=== PATIENT | male | born 1980 | race Caucasian/White ===

== ENCOUNTER 2022-12-18 07:26 | Emergency (ER) | payer OTHER, SELFPAY ==
--- NOTE | 2022-12-18 07:34 | ED_ITS ---
HPI - Back Pain/Injury General Chief Complaint: Back Pain/Injury Stated Complaint: back pain down left leg Time Seen by Provider: 12/18/22 07:34 History of Present Illness HPI Narrative: Presents to emergency department complaining of low back pain. Patient states the pain is in the low back radiates to his left gluteus. Patient denies any paresthesias, or weakness. He denies any trauma. He denies any urinary, bowel incontinence,or retention. He denies any fever, chills, cough, chest, shortness of breath. He denies any flank pain, hematuria, dysuria. Patient states has had back pain intermittently for the last month. He had an appointment with his primary care doctor and he canceled it because at that time his back was no longer hurting him. He has taken Motrin 800 mg yesterday without any relief. He states he takes Ultram intermittently for his psoriasis, and arthritis the last dose was 50 mg 3 days ago and he ran out of them so he has not taking anything today. He states when he went to get up this morning he was not able to get out of bed without any pain. pain is worse with movement. Related Data Home Medications Medication Instructions Recorded Confirmed amlodipine 10 mg tablet 10 mg PO DAILY 12/18/22 12/18/22 atorvastatin 80 mg tablet 80 mg PO QPM 12/18/22 12/18/22 diclofenac sodium 75 mg 75 mg PO BID 12/18/22 12/18/22 tablet,delayed release duloxetine 60 mg capsule,delayed 60 mg PO DAILY 12/18/22 12/18/22 release (Cymbalta) esomeprazole magnesium 20 mg 20 mg PO DAILY 12/18/22 12/18/22 capsule,delayed release (Nexium 24HR) ibuprofen 800 mg tablet 800 mg PO TID 12/18/22 12/18/22 losartan 100 mg tablet (Cozaar) 100 mg PO DAILY 12/18/22 12/18/22 tramadol 50 mg tablet 50 mg PO .every other day 12/18/22 12/18/22 Previous Rx's Medication Instructions Recorded hydrocodone 5 mg-acetaminophen 325 1 tab PO Q6H PRN pain 5 days #14 12/18/22 mg tablet tabs methylprednisolone 4 mg tablets in 4 mg PO DAILY #21 ea 12/18/22 a dose pack (Medrol (Horacio)) Allergies Allergy/AdvReac Type Severity Reaction Status Date / Time No Known Drug Allergies Allergy Verified 12/18/22 07:58 Review of Systems ROS Narrative ROS: Unless otherwise stated in this report the patient's positive and negative responses for review of systems for constitutional, eyes, ENT, cardiovascular, respiratory, gastrointestinal, neurological, , musculoskeletal and integument systems and related systems to the presenting problem are either stated in the history of present illness or were not pertinent or were negative for the symptoms and/or complaints related to the presenting medical problem. [facility] Social History Smoking status: Never smoker Exam Narrative Exam Narrative: Nurses notes and vital signs reviewed and patient is not hypoxic. General: Nontoxic, Well-appearing and in no apparent distress. Skin: Warm, dry, no pallor noted. Multiple psoriatic patches to the arms, legs and back. Neck: Supple, non-tender. Eye: Pupils are equal, round and EOMI. No scleral icterus. Ears, Nose, Mouth, and Throat: TM clear, no posterior oropharynx erythema or nasal mucosal hypertrophy, uvula is mid-line Oral mucosa is moist Cardiovascular: Regular Rate and Rhythm without murmur, gallop or rub. Respiratory: No accessory muscle use or respiratory distress. Lungs are clear to auscultation, no wheezing, rales or rhonchi Chest Wall: no tenderness Back: No midline thoracic or lumbar vertebral tenderness. Rest to palpation to the left lateral L4 L5 S1 and sacroiliac joint. No erythema, step-offs, signs of trauma, or infection.No CVA tenderness Musculoskeletal: normal ROM, no calf or popliteal tenderness, no lower extremity edema/swelling GI: Morbid obesity, Abdomen is soft, non-distended. Normal bowel sounds. No tenderness to palpation. No rebound, guarding, or rigidity noted. Neurological: A&O x4. No cranial nerve dysfunction observed. No truncal ataxia. Moves all extremities. Sensation intact. Psychiatric: Cooperative and interactive. Normal mood and affect. Constitutional Vital Signs - 24 hr 12/18/22 07:49 Temperature 97.8 F Pulse Rate [Monitor] 90 Respiratory Rate 20 Blood Pressure [Right Arm] 152/94 H Pulse Oximetry 96 Oxygen Delivery Method Room Air Course Course Hospital Course: Patient given [address] morphine IM CT scan of the Lumbar spine was ordered. Vital Signs Vital signs: Vital Signs Temperature 97.8 F 12/18/22 07:49 Pulse Rate 90 12/18/22 07:49 Respiratory Rate 20 12/18/22 07:49 Blood Pressure 152/94 H 12/18/22 07:49 Pulse Oximetry 96 12/18/22 07:49 Oxygen Delivery Method Room Air 12/18/22 07:49 Temperature 97.8 F 12/18/22 07:49 Pulse Rate 90 12/18/22 07:49 Respiratory Rate 20 12/18/22 07:49 Blood Pressure 152/94 H 12/18/22 07:49 Pulse Oximetry 96 12/18/22 07:49 Oxygen Delivery Method Room Air 12/18/22 07:49 MDM - Back Pain/Injury Differential Diagnosis Differential diagnosis: Likely lumbar radiculopathy, sciatica, strain of lumbar region, thoracic back pain, AAA and discitis Medical Records Attestation: I reviewed the patient's medical records. Medical records narrative: pt was given morphine 4 mg IM which helped a little bit but he was still in a lot of pain. Patient had 1 mg of Dilaudid given IM. This helped his pain. OARRS was checked. Patient has 15 tablets of Ultram given to him every month prn by his primary care doctor. Patient will be given a prescription for a Medrol Dosepak, and [place]. He is follow-up with his primary care doctor regarding this visit and CT findings. Does not have any signs of cord compression syndrome. At this time the patient is without objective evidence of an acute process requiring hospitalization or inpatient management. The patient has remained hemodynamically stable. No additional indication for emergent studies at this time. I answered all questions. Discussed discharge instructions including standard anticipatory guidance and what should prompt a return to the emergency department, including if they get worse are not getting better or develops any new or concerning symptoms. I've given them specific time frame in which to follow-up, and who to follow-up with. The patient demonstrates understanding. Patient is nontoxic and stable for discharge with outpatient follow-up. This note was created with the assistance of a speech recognition program. Although the intention is to generate documents that actually reflects the content of the visit, no guarantees can be provided that every mistake has been identified and corrected by editing. Imaging Data ct lumbar: Attestation: I have reviewed the pertinent imaging results. Radiologist's impression: Patient Name: FELICIANO BROWNE MRN: [facility]:[id number] date: 1980 Sex: M Assigned Patient Location: ED.MAIN Current Patient Location: ED.MAIN Accession/Order Number: [id number] Exam Date: 12/18/2022 07:45 Report Date: 12/18/2022 08:18 At the request of: REZA COLLADO Procedure: CT lumbar spine wo con EXAM: CT scan of the lumbar spine without contrast. Dose reduction technique used: Automated exposure control and/or adjustment of the mA and/or kV according to patient size and/or use of iterative reconstruction technique. REASON FOR EXAM: Back pain COMPARISON: None FINDINGS: No lumbar spine fractures. Straightening of the normal lumbar lordosis. Otherwise, no lumbar spine malalignment. Multilevel bilateral mild lumbar neural foraminal stenoses. No high-grade neural foraminal stenoses. Multilevel lumbar spinal canal stenoses on a congenital basis. Lumbar epidural lipomatosis. At least moderate effacement of the thecal sac at the L3-L4 level related to epidural lipomatosis and congenital narrowing. No definite severe spinal canal stenoses. Remainder unremarkable. IMPRESSION: 1. No acute lumbar spine abnormalities. 2. Multilevel spinal canal stenoses related to congenital narrowing and epidural lipomatosis, at least moderate thecal sac effacement at the L3-L4 level. Electronically authenticated by: CAROLE WRIGHT Date: 12/18/2022 08:18 Discharge Plan Discharge Chief Complaint: Back Pain/Injury Clinical Impression: Lumbar radiculopathy Patient Disposition: Home, Self-Care Time of Disposition Decision: 09:57 Condition: Good Mode of Transportation: Private Vehicle Prescriptions / Home Meds: New hydrocodone-acetaminophen 5-325 mg tablet 1 tab PO Q6H PRN (Reason: pain) 5 Days Qty: 14 0RF methylprednisolone [Medrol (Horacio)] 4 mg tablets,dose pack 4 mg PO DAILY Qty: 21 0RF No Action esomeprazole magnesium [Nexium 24HR] 20 mg capsule,delayed release(DR/EC) 20 mg PO DAILY atorvastatin 80 mg tablet 80 mg PO QPM amlodipine 10 mg tablet 10 mg PO DAILY duloxetine [Cymbalta] 60 mg capsule,delayed release(DR/EC) 60 mg PO DAILY losartan [Cozaar] 100 mg tablet 100 mg PO DAILY diclofenac sodium 75 mg tablet,delayed release (DR/EC) 75 mg PO BID ibuprofen 800 mg tablet 800 mg PO TID tramadol 50 mg tablet 50 mg PO .every other day Patient Comments: gets 15 pills month Instructions: Acute Low Back Pain (ED), Lumbar Radiculopathy (ED) Stand Alone Forms: Portal Instructions Referrals: VANDANA ANGELES [Primary Care Provider] - 1 week Discharge Date/Time: 12/18/22 10:40
[2022-12-18 07:49] VITALS: BP 152/94; PULSE 90; RESP 20; TEMP 36.6; O2SAT 96; BMI 53.1
[2022-12-18] MEDS: HYDROMORPHONE HCL 1 MG/ML CARTRIDGE IM (09:33)
== END 2022-12-18 10:40 | disposition home or self-care (01) ==
PROVIDERS: Emergency Provider Emergency Medicine; PCP Nurse Practitioner Family
DX: M54.16 Radiculopathy, lumbar region (principal); Z79.899 Other long term (current) drug therapy
CPT/HCPCS: 72131; 96372; 99285; J1170

== ENCOUNTER 2023-01-16 08:32 | Outpatient (OUT) | payer OTHER, SELFPAY ==
--- NOTE | 2023-01-16 09:49 | P.CN_ITS ---
Consult Note: HPI Data of Consult Patient: new to practice Consult date: 01/16/23 Requesting Physician: Lynsey Veras MD Primary Care Provider: VANDANA ANGELES Consult Narrative Reason for consult: low back, left leg pain Narrative: this is a pleasant 42-year-old gentleman who presents for evaluation. He has had several years of low back pain and left leg pain, but in the last two months, this pain has intensified to the point where it is difficult for him to ambulate. He recently underwent a lumbar CT scan, which is significant for moderate stenosis at L3-L4 and L4-L5. There is also facet arthropathy noted. He currently is engaged in providing pertinent home exercises and physical therapyfor over a three-month period, with limited relief. He has taken long- standing tramadol for psoriatic arthritis for greater than three months, and he was given a week's supply of [place] 5 mg, which provided mild relief. He otherwise denies adverse medication side affects or loss of bowel or bladder control. cc:: CC: Lynsey Veras MD Review of Systems ROS Status of ROS 10 or more systems reviewed and unremarkable except as noted in history and below PFSH PFS Social History Smoking status: Never smoker Meds Home Medications and Allergies Home Medications Medication Instructions Recorded Confirmed Type amlodipine 10 mg tablet 10 mg PO DAILY 12/18/22 12/18/22 History atorvastatin 80 mg tablet 80 mg PO QPM 12/18/22 12/18/22 History duloxetine 60 mg capsule,delayed 60 mg PO DAILY 12/18/22 12/18/22 History release (Cymbalta) esomeprazole magnesium 20 mg 20 mg PO DAILY 12/18/22 12/18/22 History capsule,delayed release (Nexium 24HR) ibuprofen 800 mg tablet 800 mg PO TID 12/18/22 12/18/22 History losartan 100 mg tablet (Cozaar) 100 mg PO DAILY 12/18/22 12/18/22 History methylprednisolone 4 mg tablets in 4 mg PO DAILY #21 ea 12/18/22 Rx a dose pack (Medrol (Horacio)) tramadol 50 mg tablet 50 mg PO .every other day 12/18/22 12/18/22 History adalimumab 40 mg/0.4 mL 40 mg subcut .[id number] 01/16/23 01/16/23 History subcutaneous pen kit (Humira(CF) Pen) hydrocodone 5 mg-acetaminophen 325 1 tab PO BID PRN pain 01/16/23 01/16/23 History mg tablet Allergies Allergy/AdvReac Type Severity Reaction Status Date / Time No Known Drug Allergies Allergy Verified 12/18/22 07:58 Exam Constitutional Common normals: no apparent distress, oriented x3 and healthy appearing Respiratory Common normals: normal respiratory effort Effort & inspection: able to speak in complete sentences Back & Pelvis Other: tenderness to palpation throughout the lumbar spine and paraspinal musculature. Pain is elicited with flexion, extension, and lateral rotation of the lumbar spine. Facet loading maneuvers are positive bilaterally. Strength is noted to be unremarkable throughout the bilateral lower extremities except for decreased strength rated at four out of five in the left quadriceps femoris, anterior tibialis. Sensation noted to be unremarkable throughout the bilateral lower extremities except for dysesthesia in the left L3, L4, L5 dermatomal distributions. Tenderness to palpation over the left PSIS. Thigh thrust is positive on the left. Vignesh's maneuver is positive on the left.coordination remains intact. Gait remains mildly antalgic. Extremity Common normals: normal to inspection Neuro Common normals: oriented x3, CN's II-XII intact bilaterally and no focal motor deficits Psych Common normals: mental status grossly normal and cooperative Assessment and Plan Assessment and Plan (1) Lumbar stenosis with neurogenic claudication: (2) Lumbar radiculopathy: (3) Lumbar spondylosis: (4) Sacroiliac joint pain: Plan this is a pleasant 42-year-old gentleman presents for evaluation. He has failed physical and medical modalities, as listed above. His imaging was reviewed, as noted above. Given his failure to respond to conservative measures, it is prudent to attempt a left L3-L4, L4-L5 transforaminal epidural steroid injection to provide analgesia. He may benefit from left sacroiliac joint injection as well. He is in agreement with this plan. Medications were reviewed. I will have him trial [place] 5 mg twice a day when necessary. I will obtain a urine drug screen today. He expressed understanding. He will follow-up after the procedure is complete.
== END 2023-01-16 08:33 | disposition home or self-care (01) ==
LOC: PM 08:33
PROVIDERS: PCP Nurse Practitioner Family; Visit Provider Anesthesiology
DX: M47.26 Other spondylosis with radiculopathy, lumbar region (principal); M48.062 Spinal stenosis, lumbar region with neurogenic claudication; M53.3 Sacrococcygeal disorders, not elsewhere classified
CPT/HCPCS: G0463

== ENCOUNTER 2023-01-23 15:53 | Outpatient (RCR) | payer OTHER, SELFPAY | END 2023-02-23 16:53 | disposition home or self-care (01) | LOC: PT 15:53 | PROVIDERS: PCP Nurse Practitioner Family; Visit Provider Family Medicine | DX: M54.32 Sciatica, left side (principal); M54.9 Dorsalgia, unspecified | CPT/HCPCS: 97010; 97014; 97035; 97110; 97140; 97161 ==

== ENCOUNTER 2023-01-27 07:10 | Outpatient (OUT) | payer OTHER, SELFPAY ==
[2023-01-27 07:57] LABS: Basophils Absolute Auto 0.1 10^3/uL (0.0-0.1); Basophils Percent Auto 0.6 % (0.2-2.0); Eosinophils Absolute Auto 0.2 10^3/uL (0.0-0.7); Eosinophils Percent Auto 1.7 % (0.9-7.0); Hematocrit 41.6 % (42.0-54.0); Hemoglobin 13.6 g/dL (14.0-18.0); Immature Granulocytes Abs Auto 0.07 10^3/uL (0.00-0.03); Immature Granulocytes Pct Auto 0.6 % (0.0-0.5); Lymphocytes Absolute Auto 1.7 10^3/uL (1.2-3.8); Lymphocytes Percent Auto 14.2 % (20.5-60.0); Mean Corpuscular HGB Conc 32.7 g/dL (29.9-35.2); Mean Corpuscular Volume 85.8 fL (80.0-94.0); Mean Platelet Volume 10.1 fL (9.5-13.5); Monocytes Percent Auto 8.3 % (1.7-12.0); Neutrophils Absolute Auto 9.1 10^3/uL (1.4-6.5); Neutrophils Percent Auto 74.6 % (43.0-75.0); Platelet Count 269 10^3/uL (150-450); Red Blood Count 4.85 10^6/uL (4.70-6.10); Red Cell Distribution Width 14.2 % (11.0-15.0); White Blood Count 12.2 10^3/uL (4.0-11.0)
[2023-01-27 08:40] LABS: Erythrocyte Sedimentation Rate 72 mm/hr (<=15)
[2023-01-27 09:06] LABS: Alanine Aminotransferase 34 U/L (16-63); Albumin Globulin Ratio 0.9; Albumin Level 3.7 g/dL (3.4-5.0); Alkaline Phosphatase 122 U/L (46-116); Aspartate Amino Transferase 17 U/L (15-37); Bilirubin Direct 0.1 mg/dL (0.0-0.2); Bilirubin Total 0.6 mg/dL (0.2-1.0); Globulin 4.2 g/dL; Total Protein 7.9 g/dL (6.4-8.2)
[2023-01-27 10:43] LABS: C Reactive Protein 2.8 mg/dL (<=1.0); Estimated GFR (African America >60 (>=60); Estimated GFR (Non-African Ame >60 (>=60)
[2023-10-13 09:02] LABS: QuantiFERON-TB Gold Plus NEGATIVE
== END 2023-01-27 07:11 | disposition home or self-care (01) ==
LOC: LAB 07:12
PROVIDERS: PCP Nurse Practitioner Family; Visit Provider Internal Medicine Rheumatology
DX: L40.50 Arthropathic psoriasis, unspecified (principal); Z11.59 Encounter for screening for other viral diseases
CPT/HCPCS: 36415; 80076; 82565; 85025; 85652; 86140

== ENCOUNTER 2023-01-27 08:18 | Outpatient (OUT) | payer OTHER, SELFPAY ==
[2023-01-27 10:11] LABS: Anion Gap 13.1; Calcium 9.6 mg/dL (8.5-10.1); Carbon Dioxide 26.8 mmol/L (21.0-32.0); Chloride 101 mmol/L (98-107); Glucose 151 mg/dL (74-106); Potassium 3.9 mmol/L (3.5-5.1); Sodium 137 mmol/L (136-145)
[2023-01-27 10:28] LABS: Chol HDL Ratio 5.2; Cholesterol 188 mg/dL (<=200); Free T3 2.77 pg/mL (2.18-3.98); HDL Cholesterol 36 mg/dL (40-60); Thyroid Stimulating Hormone 3.594 uIU/mL (0.358-3.740); Triglycerides 301 mg/dL (<=150); Uric Acid 6.3 mg/dL (3.5-7.2); VLDL CHOLESTEROL 60.2 mg/dL
[2023-01-27 10:57] LABS: Estimated Average Glucose 148 mg/dL; Glycohemoglobin A1C 6.8 % (4.5-6.2)
[2023-01-28 11:13] LABS: Insulin 41.9 uIU/mL (2.6-24.9)
== END 2023-01-27 08:19 | disposition home or self-care (01) ==
LOC: LAB 08:24
PROVIDERS: PCP Nurse Practitioner Family; Visit Provider Nurse Practitioner Family
DX: Z00.00 Encounter for general adult medical examination without abnormal findings (principal)
CPT/HCPCS: 36415; 80051; 80053; 80061; 80076; 82310; 82565; 82947; 83036; 83525; 84436; 84443; 84481; 84520; 84550; 85025; 85652; 86140; 86480

== ENCOUNTER 2023-01-30 07:00 | Day surgery (SDC) | payer OTHER, SELFPAY ==
[2023-01-30 07:21] VITALS: BP 139/82; PULSE 109; RESP 16; TEMP 36.8; O2SAT 95
[2023-01-30 08:28] VITALS: BP 171/98; PULSE 103; RESP 18; O2SAT 96
[2023-01-30] MEDS: BUPIVACAINE HCL 0.25% PF 25 MG/10 ML VIAL INJ (08:29)
[2023-01-30] MEDS: LIDOCAINE HCL 2% PF 100 MG/5 ML VIAL INJ (08:30)
[2023-01-30] MEDS: IOHEXOL 240 MG/ML - 10 ML VIAL INJ (08:30)
[2023-01-30] MEDS: TRIAMCINOLONE ACETONIDE 40 MG/ML VIAL INJ (08:31)
[2023-01-30 08:32] VITALS: BP 173/93; PULSE 99; RESP 18; O2SAT 97
--- NOTE | 2023-01-30 08:32 | W.PM.PROCNOT ---
Date of procedure: 01/30/23 Pre-op diagnosis: Lumbar stenosis with neurogenic claudication Post-op diagnosis: same Procedure: Procedure: Left L3-4, L4-5 transforaminal epidural steroid injection Medications: Bupivacaine 0.25% 2cc, normal saline 0.9% 1cc, kenalog 40mg The patient was seen and examined in the preoperative holding area.? Informed consent was obtained and placed on the chart.? Patient was brought to the medical procedure unit and placed in the prone position where a timeout was completed verifying the correct patient, procedure site, position, and planned special equipment using sterile aseptic technique.? Under direct fluoroscopic visualization a 25-gauge Quincke tipped spinal needle was advanced at level left L3-4 to the designated neural foramen where contrast dye was injected to show adequate spread.? There was no evidence of vascular or adverse uptake.? Epidural spread was appreciated.? The above-mentioned injectate was then placed in a 1.5 mL aliquot preceded by negative aspiration.? The needle was removed. The same procedure was then completed at left L4-5. ? Patient was taken to the postprocedural recovery area and monitored for an appropriate length of time before found suitable for discharge in the accompaniment of a responsible adult. Anesthesia: None Surgeon: Lynsey Veras Pathology: none sent Condition: stable
== END 2023-01-30 08:36 | disposition home or self-care (01) ==
PROVIDERS: PCP Nurse Practitioner Family; Visit Provider Anesthesiology
DX: M48.062 Spinal stenosis, lumbar region with neurogenic claudication (principal)
CPT/HCPCS: 64483; 64484; Q9966

== ENCOUNTER 2023-02-13 06:42 | Day surgery (SDC) | payer OTHER, SELFPAY ==
[2023-02-13 07:03] VITALS: BP 152/96; PULSE 106; RESP 14; TEMP 36.4; O2SAT 95
[2023-02-13 07:16] LABS: Glucometer 146 mg/dL (74-106)
[2023-02-13] MEDS: BUPIVACAINE HCL 0.25% PF 25 MG/10 ML VIAL INJ (07:33)
[2023-02-13] MEDS: IOHEXOL 240 MG/ML - 10 ML VIAL INJ (07:34)
[2023-02-13] MEDS: LIDOCAINE HCL 2% PF 100 MG/5 ML VIAL INJ (07:34)
[2023-02-13] MEDS: TRIAMCINOLONE ACETONIDE 40 MG/ML VIAL INJ (07:34)
--- NOTE | 2023-02-13 07:34 | W.PM.PROCNOT ---
Date of procedure: 02/13/23 Pre-op diagnosis: left sacroiliac joint pain Procedure: Procedure: Left sacroiliac joint pain Medications: Kenalog 40mg, bupivacaine 0.25% 3cc After informed consent was obtained, the patient was brought to the medical procedure unit and placed in the prone position, when a timeout was completed verifying correct patient, procedure, site, positioning, implant, and/or special equipment.? The skin overlying the area was prepped and draped in standard sterile fashion using alcohol.? A 25-gauge needle was inserted into the left sacroiliac joint under direct fluoroscopic imaging.? Needle tip was advanced until the joint surface was encountered.? Along the joint surface we instilled a total of 3 mL of solution.? Postoperatively needles were removed.? The patient tolerated the procedure well without complication.? The patient reported reduction in pain symptoms postoperatively. Anesthesia: None Surgeon: Lynsey Veras Pathology: none sent Condition: stable Disposition: no change
[2023-02-13 13:22] VITALS: BP 162/92; PULSE 106; RESP 20; O2SAT 95
== END 2023-02-13 07:38 | disposition home or self-care (01) ==
PROVIDERS: PCP Family Medicine; Visit Provider Anesthesiology
DX: M53.3 Sacrococcygeal disorders, not elsewhere classified (principal)
CPT/HCPCS: 27096; 36415; 82948; Q9966

== ENCOUNTER 2023-02-22 19:54 | Outpatient (OUT) | payer OTHER, SELFPAY | END 2023-02-22 19:55 | disposition home or self-care (01) | LOC: SLEEP 19:55 | PROVIDERS: PCP Family Medicine; Visit Provider Family Medicine | DX: G47.33 Obstructive sleep apnea (adult) (pediatric) (principal) | CPT/HCPCS: 95810 ==

== ENCOUNTER 2023-02-24 11:18 | Outpatient (OUT) | payer OTHER, SELFPAY ==
--- NOTE | 2023-02-24 11:45 | PM.CN ---
Consult Note: HPI Data of Consult Patient: known to practice within the last 3 years Consult date: 02/24/23 Requesting Physician: HALINA MOONEY NP Primary Care Provider: VANDANA ANGELES Consult Narrative Narrative: Patient is here for f/u of chronic low back pain. He had left SI injection 02/13/23 with 20% relief after procedure. Left TFESI done 01/30/23 with 50% relief of pain. . Pain today is left low back radiating to left leg to just above left knee. Worse with position changes, walking, standing. He completed PT this month without benefit. Discussed ordering MRI and he would like to go ahead with MRI. FRANCISCO-60 . No new sensorimotor sx or bowel or bladder issues. Medication regimen assists patient to better complete ADLs. Denies adverse medication SE. OARRS reviewed. FRANCISCO- 60. He states the norco wears off before next dose is due. We can increase dose to TID. cc:: CC: HALINA MOONEY NP Review of Systems ROS Status of ROS 10 or more systems reviewed and unremarkable except as noted in history and below Musculoskeletal Reports: back pain PFSH PFSH Medical History Surgical History Social History Smoking status: Never smoker Meds Home Medications and Allergies Home Medications Medication Instructions Recorded Confirmed Type amlodipine 10 mg tablet 10 mg PO DAILY 12/18/22 02/13/23 History atorvastatin 80 mg tablet 80 mg PO QPM 12/18/22 02/13/23 History duloxetine 60 mg capsule,delayed 60 mg PO DAILY 12/18/22 02/13/23 History release (Cymbalta) esomeprazole magnesium 20 mg 20 mg PO DAILY 12/18/22 02/13/23 History capsule,delayed release (Nexium 24HR) ibuprofen 800 mg tablet 800 mg PO TID PRN pain 12/18/22 02/13/23 History losartan 100 mg tablet (Cozaar) 100 mg PO DAILY 12/18/22 02/13/23 History hydrocodone 5 mg-acetaminophen 325 1 tab PO BID PRN pain 01/16/23 02/13/23 History mg tablet Allergies Allergy/AdvReac Type Severity Reaction Status Date / Time No Known Drug Allergies Allergy Verified 01/30/23 07:15 Exam Constitutional Documenting provider has reviewed patient's vital signs: yes Common normals: no apparent distress, oriented x3, healthy appearing, alert and well nourished General appearance: cooperative, comfortable and well developed Nutritional appearance: obese Orientation/consciousness: Yes awake, Yes oriented to person and Yes oriented to place HENMT Common normals: normocephalic and moist oral mucous membranes Respiratory Common normals: normal respiratory effort, no retractions and no use of accessory muscles Effort & inspection: able to speak in complete sentences and symmetric chest movement Back & Pelvis Lumbar spine/lower back: normal to inspection, ROM limited, pain with ROM and paraspinal muscle tenderness Other: facet loading pain left lumbar muscle strength 5/5 bilat LE with intact sensation Assessment and Plan Assessment and Plan (1) Lumbar spondylosis: (2) Lumbar stenosis with neurogenic claudication: (3) Lumbar radiculopathy: Plan LS MRI without contrast increase norco to TID f/u 3 months
== END 2023-02-24 11:19 | disposition home or self-care (01) ==
PROVIDERS: PCP Nurse Practitioner Family; Visit Provider Nurse Practitioner
DX: M47.26 Other spondylosis with radiculopathy, lumbar region (principal); M48.062 Spinal stenosis, lumbar region with neurogenic claudication
CPT/HCPCS: G0463

== ENCOUNTER 2023-03-01 19:04 | Observation (INO) | payer OTHER, SELFPAY ==
[2023-03-01 19:07] VITALS: BP 141/96; PULSE 106; RESP 18; TEMP 36.7; O2SAT 97
--- NOTE | 2023-03-01 19:16 | ED_ITS ---
HPI - Back Pain/Injury General Chief Complaint: Back Pain/Injury Stated Complaint: LOWER BACK PAIN Time Seen by Provider: 03/01/23 19:08 Source: patient Mode of arrival: ambulance History of Present Illness HPI Narrative: Patient is a 42-year-old male with ongoing issues in his low back presents to the emergency department by ambulance for the evaluation of increasing low back pain with pain radiation to the left lower extremity. 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 He has received injections to his low back. He states his most recent injection was one week ago. He is currently on [place], muscle relaxants and ibuprofen for pain. He reports an increase in pain today, no new falls or injuries. He denies any ur inary symptoms. He reports occasional tingling of the left leg. Related Data Home Medications Medication Instructions Recorded Confirmed amlodipine 10 mg tablet 10 mg PO DAILY 12/18/22 02/13/23 atorvastatin 80 mg tablet 80 mg PO QPM 12/18/22 02/13/23 duloxetine 60 mg capsule,delayed 60 mg PO DAILY 12/18/22 02/13/23 release (Cymbalta) esomeprazole magnesium 20 mg 20 mg PO DAILY 12/18/22 02/13/23 capsule,delayed release (Nexium 24HR) ibuprofen 800 mg tablet 800 mg PO TID PRN pain 12/18/22 02/13/23 losartan 100 mg tablet (Cozaar) 100 mg PO DAILY 12/18/22 02/13/23 hydrocodone 5 mg-acetaminophen 325 1 tab PO BID PRN pain 01/16/23 02/13/23 mg tablet Previous Rx's Medication Instructions Recorded hydrocodone 5 mg-acetaminophen 325 1 tab PO TID PRN pain #90 tabs 02/24/23 mg tablet naloxone 4 mg/actuation nasal 1 spray intranasal Q2M PRN opioid 02/24/23 spray (Narcan) overdose #2 ea Allergies Allergy/AdvReac Type Severity Reaction Status Date / Time No Known Drug Allergies Allergy Verified 03/01/23 19:12 Review of Systems ROS Constitutional Denies: fever or chills Ears, nose, mouth, and throat Denies: throat pain or neck pain Cardiovascular Denies: chest pain Respiratory Denies: shortness of breath Gastrointestinal Denies: nausea or vomiting Musculoskeletal Reports: back pain and extremity pain; Denies: neck pain Integumentary/Breast Denies: rash Neurological Denies: headache Hematologic/Lymphatic Denies: easy bruising PFSH PFS Medical History Surgical History Social History Smoking status: Never smoker Exam Narrative Exam Narrative: Gen.: Awake, alert, in no distress Head: Normocephalic, atraumatic ENT: Moist mucous membranes Respiratory: No respiratory distress Back:Diffuse tenderness of the lumbar spine, no bony point tenderness or obvious deformity, no step off. Extremities: Moves extremities equally, no injuries noted Psych: Normal mood and affect Neuro: No focal neuro deficit Skin: Warm, dry, intact Constitutional Vital Signs, click to edit/add: Last Vital Signs Temp 98.1 F 03/01/23 19:07 Pulse 106 H 03/01/23 19:07 Resp 18 03/01/23 19:07 BP 141/96 H 03/01/23 19:07 Pulse Ox 97 03/01/23 19:07 O2 Del Method Room Air 03/01/23 19:07 Course Vital Signs Vital signs: Vital Signs Temperature 98.1 F 03/01/23 19:07 Pulse Rate 106 H 03/01/23 19:07 Respiratory Rate 18 03/01/23 19:07 Blood Pressure 141/96 H 03/01/23 19:07 Pulse Oximetry 97 03/01/23 19:07 Oxygen Delivery Method Room Air 03/01/23 19:07 Temperature 98.1 F 03/01/23 19:07 Pulse Rate 106 H 03/01/23 19:07 Respiratory Rate 18 03/01/23 19:07 Blood Pressure 141/96 H 03/01/23 19:07 Pulse Oximetry 97 03/01/23 19:07 Oxygen Delivery Method Room Air 03/01/23 19:07 MDM - Back Pain/Injury MDM Narrative Medical decision making narrative: IV was established. Patient has no focal neuro deficits in the Emergency Room. Exam and history are consistent with left-sided sciatica and acute chronic low back pain. As the patient has had an increase in pain in the lumbar spine and difficulty ambulating, repeat CT of the lumbar spine was performed showing no evidence of acute change. Patient was medicated with IV morphine, Zofran, Toradol, Norflex. He reported no improvement of his pain was given additional IV Dilaudid and Solu-Medrol with no significant change in pain. After his CT resulted, patient states he is not even able to sit up due to intractable pain. Patient has received the limit of medications that we can offer from the Emergency Room and he is unable to ambulate or function so he will be admitted for intractable pain to his primary care provider Dr. Cool. Discussed with Dr. Chen for admission (2119). Medical Records Attestation: I reviewed the patient's medical records. Imaging Data CT lumbar spine: Attestation: I have reviewed the pertinent imaging results. Radiologist's impression: Procedure: CT lumbar spine wo con EXAM: CT lumbar spine wo con COMPARISON: None available. CLINICAL INDICATION: Paresthesia TECHNIQUE: Multiplanar CT images of the lumbar spine without contrast. Dose reduction techniques were achieved by using automated exposure control and/or adjustment of mA and/or kV according to patient size and/or use of iterative reconstruction technique. FINDINGS: No significant interval change compared to recent prior CT L-spine from 12/18/2022. 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 This results in unchanged mild spinal canal narrowing at L2-L3 and moderate spinal canal narrowing from L3 through L5. Right foraminal disc protrusion-osteophyte complex at L3-L4 resulting in unchanged right foraminal narrowing. No evidence of acute osseous abnormality. Nonobstructing 5 mm left kidney stone. IMPRESSION: As above. Electronically authenticated by: JANETTE OLIVAS Date: 03/01/2023 21:07 Discharge Plan Discharge Chief Complaint: Back Pain/Injury Patient Disposition: Admitted as Observation Time of Disposition Decision: 21:22 Prescriptions / Home Meds: No Action hydrocodone-acetaminophen 5-325 mg tablet 1 tab PO TID PRN (Reason: pain) Qty: 90 0RF naloxone [Narcan] 4 mg/actuation spray,non-aerosol 1 spray intranasal Q2M PRN (Reason: opioid overdose) Qty: 2 0RF Rx Instructions: spray 1 dose into ONE nostril; alternate nostrils w each dose until help arrives esomeprazole magnesium [Nexium 24HR] 20 mg capsule,delayed release(DR/EC) 20 mg PO DAILY atorvastatin 80 mg tablet 80 mg PO QPM amlodipine 10 mg tablet 10 mg PO DAILY duloxetine [Cymbalta] 60 mg capsule,delayed release(DR/EC) 60 mg PO DAILY losartan [Cozaar] 100 mg tablet 100 mg PO DAILY ibuprofen 800 mg tablet 800 mg PO TID PRN (Reason: pain) hydrocodone-acetaminophen 5-325 mg tablet 1 tab PO BID PRN (Reason: pain) Referrals: Rizwan Cool MD [Primary Care Provider] - 1 week
[2023-03-01] MEDS: ORPHENADRINE 60 MG/ 2 ML VIAL IV (19:23)
[2023-03-01] MEDS: KETOROLAC TROMETHAMINE 30 MG/ML VIAL IVP (19:23)
[2023-03-01] MEDS: MORPHINE SULFATE 4 MG/ML VIAL IV (19:23)
[2023-03-01] MEDS: ONDANSETRON PF 4 MG/2 ML VIAL IV (19:24)
--- NOTE | 2023-03-01 19:26 | CT_ITS ---
The [address] [address] Patient Name: FELICIANO BROWNE MRN: [id number] date: 1980 Sex: M Assigned Patient Location: ER Current Patient Location: ER Accession/Order Number: [id number] Exam Date: 03/01/2023 19:35 Report Date: 03/01/2023 21:07 At the request of: KARINA WALKER Procedure: CT lumbar spine wo con EXAM: CT lumbar spine wo con COMPARISON: None available. CLINICAL INDICATION: Paresthesia TECHNIQUE: Multiplanar CT images of the lumbar spine without contrast. Dose reduction techniques were achieved by using automated exposure control and/or adjustment of mA and/or kV according to patient size and/or use of iterative reconstruction technique. FINDINGS: No significant interval change compared to recent prior CT L-spine from 12/18/2022. 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 This results in unchanged mild spinal canal narrowing at L2-L3 and moderate spinal canal narrowing from L3 through L5. Right foraminal disc protrusion-osteophyte complex at L3-L4 resulting in unchanged right foraminal narrowing. No evidence of acute osseous abnormality. Nonobstructing 5 mm left kidney stone. CT/CT lumbar spine wo con IMPRESSION: As above. Electronically authenticated by: JANETTE OLIVAS Date: 03/01/2023 21:07
[2023-03-01] MEDS: HYDROMORPHONE HCL 0.5 MG/0.5 ML SYRINGE 1 MG IV (20:11)
[2023-03-01] MEDS: METHYLPREDNISOLONE SOD SUCC PF 125 MG/2 ML VIAL IVP (20:11)
[2023-03-01 22:11] VITALS: PULSE 96; RESP 18; O2SAT 92
[2023-03-01 22:13] VITALS: BP 137/91; PULSE 96; RESP 18; TEMP 36.7; O2SAT 92; BMI 59.9
--- NOTE | 2023-03-01 22:44 | P.PN_ITS ---
Progress Note: Subjective Subjective Interval history: PT is a 42M with PMH of sciatica who presented to the ED with chief complaint of low back pain. He was given morphine, dilaudid, steroids and still has been unable to walk. At the time of my evaluation, he reports persistent 9/10 back pain which is constant, and radiates from the L gluteal area to the L knee. He reports no weakness, no loss of sensation, no saddle anesthesia, no incontinence of urine or stool. His pain has no relieving factors and is worse with movement. Nonsmoker, No drug use. Occasional beer drinking (12 per week). No pertinent family history Takes [place] and muscle relaxer at home. Exam Narrative Exam Narrative: Gen: Mod-severe painful distress. Lying flat in bed HEENT: No nasal discharge. NC/AT. PEERL Neck: FROM Cards: RRR. No murmur Pulm: CTA B/L GI: Nondistented. Nontender Musculsk: +SLR LLE. 5/5 Strength. No sensation loss. Neuro: as above. AAOx4 PSych: cooperative Constitutional Vital Signs, click to edit/add: Last Vital Signs Temp 98.1 F 03/01/23 19:07 Pulse 106 H 03/01/23 19:07 Resp 18 03/01/23 19:07 BP 141/96 H 03/01/23 19:07 Pulse Ox 97 03/01/23 19:07 O2 Del Method Room Air 03/01/23 19:07 Progress Note: A&P Assessment and Plan (1) Left sided sciatica: Assessment and Plan: Positive LLE SLR CT L spine shows stenosis Intractable pain Inability to ambulate Pain management with Dilaudid Add bowel regimen AMbulate as tolerated MRI L Spine SCDs, Lovenox for DVt PPX regular diet Consider Neurosurgery referral (2) Intractable low back pain: (3) Ambulatory dysfunction: Telemedicine Attestation Telemedicine Attestation I conducted this encounter from [[place]] via secure live, [id number] video rachel wray with the patient, located at [facility] with [nurse]. Prior to the interview, the risks and benefits of telemedicine were discussed with the patient and verbal consent was obtained.
[2023-03-01 23:00] VITALS: O2SAT 91
--- NOTE | 2023-03-01 23:08 | RESP.RT ---
02 applied at 1L nasal cannula. Pt shallowing breathing and when moving around Sp02 dropped to 88%.
[2023-03-02] VITALS (8 sets, daily range): BP systolic 144–153; BP diastolic 89–101; PULSE 95–110; RESP 18–22; TEMP 36.4–36.7; O2SAT 91–94
[2023-03-02] MEDS: HYDROMORPHONE HCL 1 MG/ML CARTRIDGE IVP ×2 (00:50→05:06)
[2023-03-02 09:00] LABS: Hemoglobin 14.4 g/dL (14.0-18.0); Mean Corpuscular Hemoglobin 27.9 pg (25.9-34.0); Platelet Count 273 10^3/uL (150-450); Red Blood Count 5.17 10^6/uL (4.70-6.10); Red Cell Distribution Width 14.3 % (11.0-15.0); White Blood Count 17.3 10^3/uL (4.0-11.0)
[2023-03-02 09:14] LABS: Lymphocytes Absolute Manual 0.51 10^3/uL (1.20-3.80); Monocytes Absolute Manual 0.17 10^3/uL (0.30-0.80)
--- NOTE | 2023-03-02 09:22 | XR_ITS ---
[address] [address] Patient Name: FELICIANO BROWNE MRN: [id number] date: 1980 Sex: M Assigned Patient Location: [place] Current Patient Location: [place] Accession/Order Number: [id number] Exam Date: 03/02/2023 11:20 Report Date: 03/02/2023 11:55 At the request of: SHAIKH JM Procedure: XR chest 1V EXAM: XR chest 1V HISTORY: elevated white blood count COMPARISON: None. TECHNIQUE: Chest X-ray AP, 1 view FINDINGS: Support devices: None. Lungs/pleura: No consolidation, effusion, or pneumothorax. Heart and mediastinum: Normal contours. Bones: No acute abnormality identified. XR/XR chest 1V Impression: No radiographic evidence of acute cardiopulmonary process. Electronically authenticated by: CHERYL ZAYAS Date: 03/02/2023 11:55
[2023-03-02] MEDS: OMEPRAZOLE 20 MG CAPSULE.DR PO (09:57)
[2023-03-02] MEDS: AMLODIPINE BESYLATE 5 MG TABLET 10 MG PO (09:57)
[2023-03-02] MEDS: ENOXAPARIN SODIUM 40 MG/0.4 ML SYRINGE SUBQ (09:57)
[2023-03-02] MEDS: DULOXETINE HCL 60 MG CAPSULE.DR PO (09:57)
[2023-03-02] MEDS: METOPROLOL TARTRATE 25 MG TABLET PO ×2 (09:58→21:45)
[2023-03-02] MEDS: LOSARTAN POTASSIUM 50 MG TABLET 100 MG PO (09:58)
[2023-03-02] MEDS: METHYLPREDNISOLONE SOD SUCC PF 125 MG/2 ML VIAL IVP (10:01)
[2023-03-02 10:04] LABS: Alanine Aminotransferase 41 U/L (16-63); Albumin Globulin Ratio 0.8; Albumin Level 3.6 g/dL (3.4-5.0); Alkaline Phosphatase 114 U/L (46-116); Anion Gap 10.6; Aspartate Amino Transferase 14 U/L (15-37); BUN Creatinine Ratio 16.5; Bilirubin Total 0.3 mg/dL (0.2-1.0); Calcium 9.9 mg/dL (8.5-10.1); Carbon Dioxide 30.1 mmol/L (21.0-32.0); Chloride 99 mmol/L (98-107); Estimated GFR (African America >60 (>=60); Estimated GFR (Non-African Ame >60 (>=60); Globulin 4.6 g/dL; Glucose 246 mg/dL (74-106); Potassium 4.7 mmol/L (3.5-5.1); Sodium 135 mmol/L (136-145); Total Protein 8.2 g/dL (6.4-8.2)
[2023-03-02] MEDS: CYCLOBENZAPRINE HCL 10 MG TABLET PO ×3 (10:06→22:23)
--- NOTE | 2023-03-02 10:16 | PM.HP ---
H&P: HPI History of Present Illness Chief complaint: Intractable low back pain Narrative: 42 y o morbidly obese with chronic low back pain for one year, presented last night with acute worsening and left LE radiation and was admitted overnight for pain control and observation. Patient reports he has been struggling with low back for about a year or so. Past 3 months, he has noticed radiculopathy to his Left LE that is progressively getting worse. He feels pain and numbness/tingling in his Left LE. Back pain and radiculopathy is more or less persistent, with no change in character, intensity of pain with posture, but typically gets worse when he is walking. He has been seeing pain physician as outpatient and had epidural steroid injection about a week ago in lumbar region. He also has been going to PT for past month with no improvement in his symptoms and if anything he feels his symptoms are worsening. Patient reports last evening he woke up after a nap and could not get up/move due to severe pain and intractable pain. He forced himself somehow to get up and fell on his back due to severe pain, b/l LE weakness. He then crawled on the floor writhing in pain to somehow reach his phone to call for help. His mom came and helped him get up on a recliner and then called 911 when his pain did not ease off In ED, he was given IV narcotics for pain but his poor remained poorly controlled and he was unable to ambulate safely due to pain, weakness and unstable gait so he was admitted for observation overnight for intractable LBP. Patient when seen this morning, reports no improvement whatsoever in his symptoms. He denies fecal/urinary incontinence and saddle anesthesia. He has no prior hx of back surgery. Never had an MRI of his back as outpatient. Review of Systems ROS Status of ROS 10 or more systems reviewed and unremarkable except as noted in history and below [facility] Medical History (Updated 03/02/23 @ 10:44 by Shaikh Rosales MD) Surgical History Family History (Updated 03/01/23 @ 23:48 by Marcial Chapman) Grandfather Family history of cancer Family history of hypertension Grandmother Family history of diabetes mellitus Family history of hypertension Father Family history of hypertension Mother Family history of hypertension Social History (Updated 03/01/23 @ 23:52 by Marcial Chapman) Within the past year, how often did you have a drink containing alcohol: 2-3 times a week Within the past year, how many standard drinks containing alcohol did you have on a typical day: 5 or 6 Within the past year, how often did you have six or more drinks on one occasion: weekly Total score: 7 Score interpretation: A score of 4 or more indicates drinking is likely to affect patient's safety. Smoking status: Never smoker Non-prescribed substance use: denies use Previous occupational history: unemployed Known occupational exposures/hazards: No Highest level of school completed/degree received: high school graduate Are you now , , , , never or living with a partner: In a typical week, how many times do you talk on the telephone with family, friends, or neighbors: 3 or more times per week How often do you get together with friends or relatives: once per week How often do you attend cheondoism or bahai services: never Do you belong to any clubs or organizations such as cheondoism groups unions, [email or web address] or athletic groups, or school groups: no Total score: 1 Score interpretation: A score of less than or equal to 1 indicates the most socially isolated. Little interest or pleasure in doing things: not at all Feeling down, depressed, or hopeless: not at all Feel stressed/tense/nervous/anxious/difficulty sleeping: to some extent Do you think of yourself as: straight/heterosexual Gender Identity: male Meds Home Medications and Allergies Home Medications Medication Instructions Recorded Confirmed Type amlodipine 10 mg tablet 10 mg PO DAILY 12/18/22 03/01/23 History atorvastatin 80 mg tablet 80 mg PO DAILY 12/18/22 03/02/23 History duloxetine 60 mg capsule,delayed 60 mg PO DAILY 12/18/22 03/01/23 History release (Cymbalta) esomeprazole magnesium 20 mg 20 mg PO DAILY 12/18/22 03/01/23 History capsule,delayed release (Nexium 24HR) ibuprofen 800 mg tablet 800 mg PO TID PRN pain 12/18/22 03/02/23 History losartan 100 mg tablet (Cozaar) 100 mg PO DAILY 12/18/22 03/02/23 History naloxone 4 mg/actuation nasal 1 spray intranasal Q2M PRN opioid 02/24/23 03/02/23 Rx spray (Narcan) overdose #2 ea cyclobenzaprine 10 mg tablet 10 mg PO BID PRN muscle spasm 03/02/23 03/02/23 History hydrocodone 5 mg-acetaminophen 325 1 tab PO TID PRN pain 03/02/23 03/02/23 History mg tablet metoprolol tartrate 25 mg tablet 25 mg PO Q12H 03/02/23 03/02/23 History phentermine 37.5 mg tablet 37.5 mg PO QDAY 03/02/23 03/02/23 History Allergies Allergy/AdvReac Type Severity Reaction Status Date / Time No Known Drug Allergies Allergy Verified 03/01/23 19:12 Exam Constitutional Vital Signs, click to edit/add: Last Vital Signs Temp 97.7 F 03/02/23 06:00 Pulse 105 H 03/02/23 06:00 Resp 18 03/02/23 06:00 BP 144/89 H 03/02/23 06:00 Pulse Ox 94 L 03/02/23 08:15 O2 Del Method Nasal Cannula 03/02/23 08:15 O2 Flow Rate 2 03/02/23 06:00 Documenting provider has reviewed patient's vital signs: yes Common normals: oriented x3 General appearance: cooperative and in distress Nutritional appearance: obese HENMT Common normals: normocephalic and head/scalp atraumatic Eye Common normals: PERRL, conjunctivae normal and no scleral icterus Respiratory Common normals: normal respiratory effort, no use of accessory muscles and clear to auscultation bilaterally Effort & inspection: decreased respiratory effort GI Common normals: Normal to inspection, nondistended, normoactive bowel sounds present, soft to palpation, non-tender and no hepatosplenomegaly Back & Pelvis Common normals: no CVA tenderness Thoracic spine/upper back: normal to inspection Lumbar spine/lower back: normal to inspection, ROM limited, pain with ROM, lumbar spinal tenderness, paraspinal muscle tenderness, paraspinal muscle spasm and straight leg raise negative bilaterally Extremity Common normals: normal to inspection, full ROM and no clubbing, cyanosis or edema Neuro Common normals: oriented x3, CN's II-XII intact bilaterally, moves all extremities and no focal motor deficits Sensory exam: extremities left dermatome light-touch: decreased (L3-4 dermatomal distribution) Psych Common normals: mental status grossly normal, thought process normal, cooperative, denies hallucinations, denies homicidal ideation and denies suicidal ideation Results Labs Labs: Short CBC 03/02/23 Range/Units 08:46 WBC 17.3 H (4.0-11.0) 10^3/uL Hgb 14.4 (14.0-18.0) g/dL Hct 45.0 (42.0-54.0) % Plt Count 273 (150-450) 10^3/uL BMP 03/02/23 08:46 Sodium 135 L Potassium 4.7 Chloride 99 Carbon Dioxide 30.1 BUN 15.0 Creatinine 0.91 Glucose 246 H Calcium 9.9 Liver Function 03/02/23 Range/Units 08:46 Total Bilirubin 0.3 (0.2-1.0) mg/dL AST 14 L (15-37) U/L ALT 41 (16-63) U/L Alkaline Phosphatase 114 (46-116) U/L Albumin 3.6 (3.4-5.0) g/dL Assessment and Plan Assessment and Plan (1) Intractable low back pain: Assessment and Plan: Acute worsening on chronic Low back pain. Pain in persistent, intractable and was not responsive to multiple doses of IV narcotics. Decreased sensation in L3-4 dermatomal distribution. No motor deficit noted. Straight leg test positive. Patient has lumbar spine tenderness in midline, paraspinal muscle tenderness and spasm noted on left more than right. Recent epidural spinal injection 1 week ago and another one [address] Lumbar spine last night shows mild spinal canal narrowing at L2-L3 and moderate spinal canal narrowing from L3 through L5. Moderate thecal effacement at L3-[address] 01/06 Patient's LBP is being managed as outpatient by PT (worsening pain - 4 weeks of PT now), 2 epidural spinal injections (acute worsening since last injection) and oral [place] Will order MRI - for worsening LBP despite conservative measures/care, PT as outpatient, Abnormal CT lumbar spine (multilevel Degenerative disc disease), abnormal neurological exam Also noted to have leukocytosis, with recent spinal injection it could be due to reactive due to steroids but also an indication of possible infection in spinal space given acute worsening, lumbar tenderness and leukocytosis Will attempt to manage pain with PO medications. Started on Oxycodone 5 Q6 for moderate pain, 10 mg oxycodone for severe pain One time dose of Valium to help with muscle spasticity. On flexeril for muscle spasm. Added baclofen Will also add IV steroids to help reduce pressure/edema/inflammation in hopes to improve his pain. (2) Leukocytosis: Assessment and Plan: Could be due to recent epidural steroid injection but also may be indicative of underlying infection in spinal space. MRI LS spine ordered Check CXR, UA rto r/o infectious etiology. (3) Hypertension: Assessment and Plan: C/w home medications. On amlodipine/Losartan/lopressor Above goal. Likely due to pain Hydralazine prn for SBP > 170 (4) Psoriatic arthritis: Assessment and Plan: H/o psoriatic arthritis. Previously was on Humira with no benefit. Outpatient f/u (5) Heartburn: Assessment and Plan: On nexium (6) Hypercholesterolemia: Assessment and Plan: On Lipitor. (7) History of prediabetes: Assessment and Plan: Reports hx of Prediabetes. Monitor blood glucose closely as patient being given steroids that could result in poorly controlled glucose SSI to keep FSBS at goal
--- NOTE | 2023-03-02 11:14 | CM.NOTE ---
Rounds made with Dr. Caba, discussed plan of care with pt and attempting to precert pt for MRI today. Pt will discharge to home later today. PT will evaluate pt prior to discharge to home.
[2023-03-02] MEDS: DIAZEPAM 5 MG TABLET 10 MG PO (11:44)
[2023-03-02] MEDS: MORPHINE SULFATE 4 MG/ML VIAL IV (11:44)
--- NOTE | 2023-03-02 12:00 | MR_ITS ---
[address] [address] Patient Name: FELICIANO BROWNE MRN: [facility]:[id number] date: 1980 Sex: M Assigned Patient Location: MS Current Patient Location: MS Accession/Order Number: [id number] Exam Date: 03/02/2023 12:15 Report Date: 03/02/2023 13:37 At the request of: MAVIS SANTILLAN Procedure: MR lumbar spine wo con EXAM: MR lumbar spine wo con CLINICAL INDICATION: Stenosis, Intractable back pain COMPARISON: CT lumbar spine 03/01/2023 TECHNIQUE/PROTOCOL: Noncontrast lumbar spine MR protocol (Sagittal T1, T2, STIR and axial T1, T2 sequences). FINDINGS: Five nonrib-bearing lumbar-type vertebral bodies with maintained heights and alignment. Pedicles are congenitally shortened. Normal marrow signal. No acute prevertebral or paraspinal soft tissue abnormalities. Conus terminates along the inferior L1 endplate. Visualized distal spinal cord and the cauda equina are morphologically normal. Dorsal epidural lipomatosis contributes to varying degrees of spinal canal narrowing. Multilevel spondylotic changes with disc desiccation at L5-S1 and varying degrees of facet/ligamentum flavum hypertrophy. No substantial intervertebral disc height loss. T12-L1: No disc bulge or herniation. No high-grade spinal canal or foraminal narrowing. L1-L2: No disc bulge or herniation. No high-grade spinal canal or foraminal narrowing. L2-L3: No disc bulge or herniation. No high-grade spinal canal or foraminal narrowing. Mild bilateral facet hypertrophy. L3-L4: No disc bulge or herniation. Moderate spinal canal narrowing is contributed to by epidural lipomatosis. No high-grade foraminal narrowing. Mild bilateral facet hypertrophy. L4-L5: No disc bulge or herniation. Moderate spinal canal narrowing is contributed to by epidural lipomatosis. No high-grade foraminal narrowing. Mild bilateral facet/ligamentum flavum hypertrophy. L5-S1: No disc bulge or herniation. Moderate spinal canal narrowing is contributed to by epidural lipomatosis. No high-grade foraminal narrowing. Mild bilateral facet/ligamentum flavum hypertrophy. MR/MR lumbar spine wo con IMPRESSION: 1. Multilevel spondylotic changes are superimposed on congenitally shortened pedicles and epidural lipomatosis. Spinal canal narrowing is at most moderate at L3-L4, L4-L5, and L5-S1. 2. No high-grade foraminal narrowing at any lumbar level. Electronically authenticated by: PAULINA ZULUAGA Date: 03/02/2023 13:37
[2023-03-02] MEDS: BACLOFEN 10 MG TABLET PO ×2 (15:22→21:45)
[2023-03-02] MEDS: METHYLPREDNISOLONE SOD SUCC PF 40 MG/ML VIAL IVP ×2 (15:22→21:45)
[2023-03-02 16:19] LABS: Glucometer 217 mg/dL (74-106)
[2023-03-02] MEDS: INSULIN ASPART 300 UNIT/3 ML PEN SUBQ ×2 (16:26→21:44)
[2023-03-02] MEDS: KETOROLAC TROMETHAMINE 30 MG/ML VIAL IVP (18:31)
[2023-03-02 21:37] LABS: Glucometer 323 mg/dL (74-106)
[2023-03-02] MEDS: ATORVASTATIN CALCIUM 40 MG TABLET 80 MG PO (21:45)
[2023-03-03] MEDS: KETOROLAC TROMETHAMINE 30 MG/ML VIAL IVP ×3 (00:07→11:32)
[2023-03-03 03:52] VITALS: O2SAT 93
[2023-03-03 04:56] LABS: Basophils Percent Auto 0.1 % (0.2-2.0); Eosinophils Percent Auto 0.1 % (0.9-7.0); Hematocrit 42.6 % (42.0-54.0); Hemoglobin 13.6 g/dL (14.0-18.0); Immature Granulocytes Abs Auto 0.28 10^3/uL (0.00-0.03); Immature Granulocytes Pct Auto 1.1 % (0.0-0.5); Lymphocytes Absolute Auto 0.7 10^3/uL (1.2-3.8); Lymphocytes Percent Auto 2.6 % (20.5-60.0); Mean Corpuscular HGB Conc 31.9 g/dL (29.9-35.2); Mean Corpuscular Hemoglobin 27.9 pg (25.9-34.0); Mean Corpuscular Volume 87.5 fL (80.0-94.0); Mean Platelet Volume 10.2 fL (9.5-13.5); Monocytes Absolute Auto 0.9 10^3/uL (0.3-0.8); Monocytes Percent Auto 3.5 % (1.7-12.0); Neutrophils Percent Auto 92.6 % (43.0-75.0); Platelet Count 310 10^3/uL (150-450); Red Blood Count 4.87 10^6/uL (4.70-6.10); Red Cell Distribution Width 14.6 % (11.0-15.0); White Blood Count 24.8 10^3/uL (4.0-11.0)
[2023-03-03] MEDS: METHYLPREDNISOLONE SOD SUCC PF 40 MG/ML VIAL IVP ×2 (05:56→14:46)
[2023-03-03] MEDS: OMEPRAZOLE 20 MG CAPSULE.DR PO (05:56)
[2023-03-03] MEDS: BACLOFEN 10 MG TABLET PO ×2 (05:57→14:46)
[2023-03-03 06:00] VITALS: BP 143/84; PULSE 100; RESP 16; TEMP 36.8; O2SAT 95
[2023-03-03 07:54] LABS: Glucometer 282 mg/dL (74-106)
[2023-03-03 08:02] LABS: Bilirubin Urine NEGATIVE (NEGATIVE); Blood Urine NEGATIVE (NEGATIVE); Clarity Urine CLEAR (CLEAR); Color Urine LT. YELLOW (YELLOW); Glucose Urine UA NEGATIVE (NEGATIVE); Ketones Urine NEGATIVE (NEGATIVE); Leukocyte Esterase Urine NEGATIVE (NEGATIVE); Nitrite Urine NEGATIVE (NEGATIVE); Protein Urine NEGATIVE (NEG/TRACE); Specific Gravity Urine 1.015 (1.005-1.025); Urobilinogen Urine 0.2 EU/dL (0.2-1.0)
[2023-03-03 08:03] LABS: Urine Microscopic Indicated NO
[2023-03-03] MEDS: ENOXAPARIN SODIUM 40 MG/0.4 ML SYRINGE SUBQ (08:22)
[2023-03-03] MEDS: DULOXETINE HCL 60 MG CAPSULE.DR PO (08:23)
[2023-03-03] MEDS: AMLODIPINE BESYLATE 5 MG TABLET 10 MG PO (08:23)
[2023-03-03] MEDS: LOSARTAN POTASSIUM 50 MG TABLET 100 MG PO (08:23)
[2023-03-03] MEDS: METOPROLOL TARTRATE 25 MG TABLET PO (08:24)
[2023-03-03] MEDS: INSULIN ASPART 300 UNIT/3 ML PEN SUBQ ×2 (08:24→11:32)
[2023-03-03] MEDS: CYCLOBENZAPRINE HCL 10 MG TABLET PO (08:24)
--- NOTE | 2023-03-03 10:00 | PT.DAILY ---
Physical Therapy Daily Note PT Daily Note/Assess Start: 03/03/23 09:56 Freq: Status: Active Protocol: Document 03/03/23 09:56 FELICIA (Rec: 03/03/23 10:00 [email or web address] [id number]) Physical Therapy Daily Note/Assessment Time In/Time Out Time In 09:32 Time Out 09:43 Pain In Pain N/A Pain Out Pain N/A Subjective Subjective Pt supine upon arrival. Reports he was just medicated for pain but agrees to attempt PT this morning. Reports having MRI done yesterday but is unsure of results. Therapeutic Activity Time Therapeutic Activity Minutes (minutes) 10 Therapeutic Activity Units 1 Therapeutic Activity Treatment Bed Mobility Ability Independent Chair Transfer Ability Independent Therapeutic Activity Comments Pt completes bed mob transfers to sit EOB IND. While sitting EOB pt reports increased L buttock and calf pain. Pt reports this pain is 8/10. Pt sit>stand to RW - static stand 1 min before amb in room. Pt amb 40' in room with RW, IND. Forward flexed posture noticed and pt reports he is unable to stand fully erect due to pain. Pt transfers back to supine without assistance. Call light in reach and needs met. Total Physical Therapy Time Total Therapy Minutes 10 Total Physical Therapy Units 1 Summary Daily Note Summary Improved gait duration but pain cont to be 8/10 with weight bearing. Forward flexed posture with gait while leaning on RW.
[2023-03-03 11:15] LABS: Glucometer 252 mg/dL (74-106)
[2023-03-03 11:33] VITALS: O2SAT 94
--- NOTE | 2023-03-03 12:35 | SWNOTE1 ---
SW met with pt to discuss dc needs. Pt lives at home alone and his mother lives down the road. Pt voiced he is being discharged today and that doctor is recommending he follow up with a neurologist. Pt voiced he went from bed to bathroom today, still has pain. SW did talk with pt about at least getting home health therapy, but he voiced therapy is not really helping, it is just the pain. Pt does not want any services at this time, will follow up with his PCP. SW to follow as needed.
--- NOTE | 2023-03-03 14:32 | P.DS_ITS ---
DS: Providers Provider Date of admission: 03/01/23 21:38 Primary care physician: Rizwan Cool MD Consults: 03/02/23 08:09 Occupational Therapy Eval and Treat Routine Physical Therapy Eval and Treat Routine Attending physician on discharge: Shaikh Rosales Discharging clinician: Shaikh Rosales Anticipated date of discharge: 03/03/23 DS: Diagnosis Discharge Diagnosis (1) Intractable low back pain: Assessment and plan: Persistent LBP pain. No new neurological symptoms. No red flags. MRI LS spine showed spinal canal narrowing is at most moderate at L3-L4, L4-L5, and L5-S1. Patient medically stable for d/c to home. Will need to f/u with Pain clinic as outpatient and possibly NS too to discuss MRI findings and surgical options if deemed appropriate by NS. (2) Leukocytosis: Assessment and plan: likely due to IV steroids. Need repeat CBC in one week as outpatient. (3) Hypertension: Assessment and plan: C/w home meds. (4) Psoriatic arthritis: Assessment and plan: Outpatient f/u with Sterile Processing Technician. (5) Heartburn: Assessment and plan: C/w omeprazole (6) Hypercholesterolemia: Assessment and plan: C/w statin (7) History of prediabetes: DS: Summary Hospital Course Hospital Course: 42 y o morbidly obese with chronic low back pain for one year, presented with acute worsening and left LE radiation and was admitted to the hospital for pain control and observation. He has been struggling with low back for about a year or so. He has been seeing pain physician as outpatient and had epidural steroid injection about a week ago in lumbar region. Patient came to ED when he could not get up/move due to severe and intractable pain. He was admitted for pain control and was given combination of oral narcotics, IV TORADOL, systemic steroids and oral muscle relaxants. MRI LS spine was performed that shows multi level disc disease unchanged from before. Patient medically stable for d/c. Asked to f/u with PCP, pain provider and possibly neurosurgeon to discuss his surgical options. Status at Discharge Functional status at discharge: independent ambulation Overall status at discharge: patient is progressing back to baseline Time Spent with Patient Time attestation: Total time spent providing and/or coordinating discharge services: Time spent: greater than 30 minutes Exam Constitutional Vital Signs, click to edit/add: Last Vital Signs Temp 98.3 F 03/03/23 06:00 Pulse 100 H 03/03/23 06:00 Resp 16 03/03/23 06:00 BP 143/84 H 03/03/23 06:00 Pulse Ox 94 L 03/03/23 11:33 O2 Del Method Room Air 03/03/23 11:33 O2 Flow Rate 2 03/02/23 06:00 Documenting provider has reviewed patient's vital signs: yes Common normals: oriented x3 General appearance: cooperative Nutritional appearance: obese HENMT Common normals: normocephalic and head/scalp atraumatic Eye Common normals: PERRL, conjunctivae normal and no scleral icterus Respiratory Common normals: normal respiratory effort, no use of accessory muscles and clear to auscultation bilaterally Effort & inspection: decreased respiratory effort GI Common normals: Normal to inspection, nondistended, normoactive bowel sounds present, soft to palpation, non-tender and no hepatosplenomegaly Back & Pelvis Common normals: no CVA tenderness Thoracic spine/upper back: normal to inspection Lumbar spine/lower back: normal to inspection, ROM limited and pain with ROM Extremity Common normals: normal to inspection, full ROM and no clubbing, cyanosis or edema Neuro Common normals: oriented x3, CN's II-XII intact bilaterally, moves all extremities and no focal motor deficits Sensory exam: extremities left dermatome light-touch: decreased (L3-4 dermatomal distribution) Psych Common normals: mental status grossly normal, thought process normal, cooperative, denies hallucinations, denies homicidal ideation and denies suicidal ideation DS: Data Data Completed and Pending Labs on day of discharge: Labs from last 24 hours 03/03/23 03/03/23 03/03/23 11:14 07:52 04:18 WBC 24.8 H RBC 4.87 Hgb 13.6 L Hct 42.6 MCV 87.5 MCH 27.9 MCHC 31.9 RDW 14.6 Plt Count 310 MPV 10.2 Neut % (Auto) 92.6 H Lymph % (Auto) 2.6 L [place] % (Auto) 3.5 Eos % (Auto) 0.1 L Baso % (Auto) 0.1 L Neut # (Auto) 23.0 H Lymph # (Auto) 0.7 L [place] # (Auto) 0.9 H Eos # (Auto) 0.0 Baso # (Auto) 0.0 Abs Immat Gran (auto) 0.28 H Imm/Tot Granulo (auto) 1.1 H Urine Color Urine Clarity Urine pH Ur Specific [place] Urine Protein Urine Glucose (UA) Urine Ketones Urine Occult Blood Urine Nitrite Urine Bilirubin Urine Urobilinogen Ur Leukocyte Esterase POC Glucose 252 H 282 H 03/02/23 03/02/23 03/02/23 21:34 16:18 07:50 WBC RBC Hgb Hct MCV MCH MCHC RDW Plt Count MPV Neut % (Auto) Lymph % (Auto) [place] % (Auto) Eos % (Auto) Baso % (Auto) Neut # (Auto) Lymph # (Auto) [place] # (Auto) Eos # (Auto) Baso # (Auto) Abs Immat Gran (auto) Imm/Tot Granulo (auto) Urine Color Lt. yellow Urine Clarity Clear Urine pH 6.0 Ur Specific [place] 1.015 Urine Protein Negative Urine Glucose (UA) Negative Urine Ketones Negative Urine Occult Blood Negative Urine Nitrite Negative Urine Bilirubin Negative Urine Urobilinogen 0.2 Ur Leukocyte Esterase Negative POC Glucose 323 H 217 H Discharge Plan Discharge Disposition: Home, Self-Care Condition: Good Discharge Medications: New baclofen 10 mg tablet 10 mg PO Q8H Qty: 30 0RF Continued naloxone [Narcan] 4 mg/actuation spray,non-aerosol 1 spray intranasal Q2M PRN (Reason: opioid overdose) Qty: 2 0RF Rx Instructions: spray 1 dose into ONE nostril; alternate nostrils w each dose until help arrives esomeprazole magnesium [Nexium 24HR] 20 mg capsule,delayed release(DR/EC) 20 mg PO DAILY atorvastatin 80 mg tablet 80 mg PO DAILY amlodipine 10 mg tablet 10 mg PO DAILY duloxetine [Cymbalta] 60 mg capsule,delayed release(DR/EC) 60 mg PO DAILY losartan [Cozaar] 100 mg tablet 100 mg PO DAILY ibuprofen 800 mg tablet 800 mg PO TID PRN (Reason: pain) cyclobenzaprine 10 mg tablet 10 mg PO BID PRN (Reason: muscle spasm) phentermine 37.5 mg tablet 37.5 mg PO QDAY metoprolol tartrate 25 mg tablet 25 mg PO Q12H hydrocodone-acetaminophen 5-325 mg tablet 1 tab PO TID PRN (Reason: pain) Activity: resume usual activities as tolerated Diet: advance to your usual diet Forms: Portal Instructions Referrals: Rizwan Cool MD [Primary Care Provider] - 1 week Follow Up Appointments: Follow up appt. with Hortencia Palafox on @ 11:00am Office #: [phone] Needs repeat CBC in one week F/u with Pain Clinic 2-3 weeks
[2023-03-03 14:49] VITALS: BP 124/88; PULSE 97; RESP 20; TEMP 36.6; O2SAT 94
--- NOTE | 2023-03-06 13:45 | CM.DCFOLLOWU ---
Person spoke with: Lexa How are you feeling? still having a lot of back pain How is your pain? 10 on scale 1-10 I'm waiting for the pain clinic to call me back with appt. Did you understand your discharge instructions? yes Do you have any questions about your discharge instructions? No Were you given any prescriptions at discharge? yes Were you able to get your prescriptions filled? yes Do you understand how to take your medications as ordered? yes Do you have any questions about your follow up appointment and do you plan to keep your follow up appointment? Mar 15 with Diana Johnson- yes will go to f/u Is there anything else that you would like to discuss? no Questions/Comments/Concerns/Other:
== END 2023-03-03 15:27 | disposition home or self-care (01) ==
LOC: ER 21:22 → MS 21:51
PROVIDERS: Admitting Provider Internal Medicine; Emergency Provider Emergency Medicine; PCP Family Medicine; Visit Provider Family Medicine
DX: M54.42 Lumbago with sciatica, left side (principal); D72.829 Elevated white blood cell count, unspecified; I10 Essential (primary) hypertension; L40.50 Arthropathic psoriasis, unspecified; R12 Heartburn; E78.00 Pure hypercholesterolemia, unspecified; G89.29 Other chronic pain; M48.061 Spinal stenosis, lumbar region without neurogenic claudication; M48.07 Spinal stenosis, lumbosacral region; R73.03 Prediabetes; R26.2 Difficulty in walking, not elsewhere classified; E66.01 Morbid (severe) obesity due to excess calories; Z68.43 Body mass index [BMI] 50.0-59.9, adult; Z79.899 Other long term (current) drug therapy
CPT/HCPCS: 36415; 71045; 72131; 72148; 80053; 81003; 82948; 85025; 85027; 94761; 96372; 96374; 96375; 96376; 97162; 97165; 97530; 97535; 99285; G0378; J1170; J2920; J2930

== ENCOUNTER 2023-03-06 07:46 | Emergency (ER) | payer OTHER, SELFPAY ==
[2023-03-06 07:48] VITALS: BP 168/104; PULSE 114; RESP 18; TEMP 37.2; O2SAT 97; BMI 43.4
--- NOTE | 2023-03-06 08:10 | PC.NURSE ---
pt denies the ability to move out of bed to dr prince morrison calls dr sanders and is talking to him at this point on poc
--- NOTE | 2023-03-06 08:30 | ED.BACK1 ---
HPI - Back Pain/Injury General Chief Complaint: Back Pain/Injury Stated Complaint: BACK PAIN Time Seen by Provider: 03/06/23 07:47 Source: patient Mode of arrival: ambulance History of Present Illness HPI Narrative: The patient coming to us with a history of chronic back pain he was seen here last time 5 days ago almost when he was admitted for the same problem the patient mentioned that he woke up today at almost 6 AM when he was trying to get out of the bed and he was complaining of severe pain that he fell down although he does not recall any injury after the fall but he mentioned that the pain in his left side is severe radiating to the buttock area. Which is the same problem that has been dealing with for the last 2 months there was no numbness tingling or any loss of urine or stool incontinence The patient did not take his Percocet today last time he took it was last night Related Data Home Medications Medication Instructions Recorded Confirmed amlodipine 10 mg tablet 10 mg PO DAILY 12/18/22 03/01/23 atorvastatin 80 mg tablet 80 mg PO DAILY 12/18/22 03/02/23 duloxetine 60 mg capsule,delayed 60 mg PO DAILY 12/18/22 03/01/23 release (Cymbalta) esomeprazole magnesium 20 mg 20 mg PO DAILY 12/18/22 03/01/23 capsule,delayed release (Nexium 24HR) ibuprofen 800 mg tablet 800 mg PO TID PRN pain 12/18/22 03/02/23 losartan 100 mg tablet (Cozaar) 100 mg PO DAILY 12/18/22 03/02/23 cyclobenzaprine 10 mg tablet 10 mg PO BID PRN muscle spasm 03/02/23 03/02/23 hydrocodone 5 mg-acetaminophen 325 1 tab PO TID PRN pain 03/02/23 03/02/23 mg tablet metoprolol tartrate 25 mg tablet 25 mg PO Q12H 03/02/23 03/02/23 phentermine 37.5 mg tablet 37.5 mg PO QDAY 03/02/23 03/02/23 Previous Rx's Medication Instructions Recorded naloxone 4 mg/actuation nasal 1 spray intranasal Q2M PRN opioid 02/24/23 spray (Narcan) overdose #2 ea baclofen 10 mg tablet 10 mg PO Q8H #30 tabs 03/03/23 Allergies Allergy/AdvReac Type Severity Reaction Status Date / Time No Known Drug Allergies Allergy Verified 03/01/23 19:12 Review of Systems ROS Status of ROS 10 or more systems reviewed and unremarkable except as noted in history and below [facility] Medical History (Updated 03/06/23 @ 08:33 by Devorah Ash MD) Surgical History Family History (Updated 03/01/23 @ 23:48 by Marcial Chapman) Grandfather Family history of cancer Family history of hypertension Grandmother Family history of diabetes mellitus Family history of hypertension Father Family history of hypertension Mother Family history of hypertension Social History (Updated 03/01/23 @ 23:52 by Marcial Chapman) Within the past year, how often did you have a drink containing alcohol: 2-3 times a week Within the past year, how many standard drinks containing alcohol did you have on a typical day: 5 or 6 Within the past year, how often did you have six or more drinks on one occasion: weekly Total score: 7 Score interpretation: A score of 4 or more indicates drinking is likely to affect patient's safety. Smoking status: Never smoker Non-prescribed substance use: denies use Previous occupational history: unemployed Known occupational exposures/hazards: No Highest level of school completed/degree received: high school graduate Are you now , , , , never or living with a partner: In a typical week, how many times do you talk on the telephone with family, friends, or neighbors: 3 or more times per week How often do you get together with friends or relatives: once per week How often do you attend denominational or hindu services: never Do you belong to any clubs or organizations such as denominational groups unions, fraternal or athletic groups, or school groups: no Total score: 1 Score interpretation: A score of less than or equal to 1 indicates the most socially isolated. Little interest or pleasure in doing things: not at all Feeling down, depressed, or hopeless: not at all Feel stressed/tense/nervous/anxious/difficulty sleeping: to some extent Do you think of yourself as: straight/heterosexual Gender Identity: male Exam Narrative Exam Narrative: Nurses notes and vital signs reviewed and patient is not hypoxic. General: Well-appearing and in no apparent distress. Skin: Warm, dry, no pallor noted. No rash. Head: Normocephalic, atraumatic. Neck: Supple, non-tender. Eye: Pupils are equal, round and EOMI. No scleral icterus. Ears, Nose, Mouth, and Throat: TM are clear, no nasal mucosal hypertrophy. Oral mucosa is moist, no posterior oropharynx erythema, uvula is mid-line Cardiovascular: Regular Rate and Rhythm without murmur, gallop or rub. Respiratory: No accessory muscle use or respiratory distress. Lungs are clear to auscultation, no wheezing, rales or rhonchi Chest Wall: no tenderness Back: No midline thoracic or lumbar vertebral tenderness. No CVA tenderness Musculoskeletal: normal ROM, no calf or popliteal tenderness, no lower extremity edema/swelling GI: Abdomen is soft, non-distended. Normal bowel sounds. No masses appreciated. No tenderness to palpation. No rebound, guarding, or rigidity noted. Neurological: A&O x4. No cranial nerve dysfunction observed. No truncal ataxia. Moves all extremities. Sensation intact. Psychiatric: Cooperative and interactive. Normal mood and affect. Back exam The patient have tenderness upon palpation of the left buttock area mostly the hip area as well with pain induced with flexion of the hip on the left side Constitutional Vital Signs, click to edit/add: Last Vital Signs Temp 99 F 03/06/23 07:48 Pulse 105 H 03/06/23 09:01 Resp 18 03/06/23 09:01 BP 155/96 H 03/06/23 09:01 Pulse Ox 94 L 03/06/23 09:01 O2 Del Method Room Air 03/06/23 09:01 Course Vital Signs Vital signs: Vital Signs Temperature 99 F 03/06/23 07:48 Pulse Rate 114 H 03/06/23 07:48 Respiratory Rate 18 03/06/23 07:48 Blood Pressure 168/104 H 03/06/23 07:48 Pulse Oximetry 97 03/06/23 07:48 Oxygen Delivery Method Room Air 03/06/23 07:48 Temperature 99 F 03/06/23 07:48 Pulse Rate 105 H 03/06/23 09:01 Respiratory Rate 18 03/06/23 09:01 Blood Pressure 155/96 H 03/06/23 09:01 Pulse Oximetry 94 L 03/06/23 09:01 Oxygen Delivery Method Room Air 03/06/23 09:01 MDM - Back Pain/Injury MDM Narrative Medical decision making narrative: The patient was admitted last time for the same problem he did not get out of the bed during examination because of the severe pain he did had an MRI done on the of this month when he was admitted for the same reason and the MRI did not show any significant pathology that require surgical treatment I did speak with the patient hospitalist who admitted him last time doctor Rosales and he agreed at that right now there is nothing new that we can offer the patient in this presentation, the patient was provided with IV medication for pain management in the ER discharged home after reviewing his opiate intake and he have a prescription for 90 pills of Percocet from the February 24 The patient also referred to pain management he was instructed that he need to follow-up with his primary care doctor for referral to neurosurgery or neurology The patient is to follow up with primary care physician in next 2-3 days or to return to the emergency department should any of the signs or symptoms worsen or new symptoms develop. The patient agrees with the following Diagnosis and Treatment plan and the patient will be discharged home. Discharge Plan Discharge Chief Complaint: Back Pain/Injury Clinical Impression: Chronic back pain Patient Disposition: Home, Self-Care Time of Disposition Decision: 08:32 Prescriptions / Home Meds: No Action naloxone [Narcan] 4 mg/actuation spray,non-aerosol 1 spray intranasal Q2M PRN (Reason: opioid overdose) Qty: 2 0RF Rx Instructions: spray 1 dose into ONE nostril; alternate nostrils w each dose until help arrives esomeprazole magnesium [Nexium 24HR] 20 mg capsule,delayed release(DR/EC) 20 mg PO DAILY atorvastatin 80 mg tablet 80 mg PO DAILY amlodipine 10 mg tablet 10 mg PO DAILY duloxetine [Cymbalta] 60 mg capsule,delayed release(DR/EC) 60 mg PO DAILY losartan [Cozaar] 100 mg tablet 100 mg PO DAILY ibuprofen 800 mg tablet 800 mg PO TID PRN (Reason: pain) cyclobenzaprine 10 mg tablet 10 mg PO BID PRN (Reason: muscle spasm) phentermine 37.5 mg tablet 37.5 mg PO QDAY metoprolol tartrate 25 mg tablet 25 mg PO Q12H hydrocodone-acetaminophen 5-325 mg tablet 1 tab PO TID PRN (Reason: pain) baclofen 10 mg tablet 10 mg PO Q8H Qty: 30 0RF Instructions: Pain Management (ED) Stand Alone Forms: Portal Instructions Referrals: Rizwan Cool MD [Primary Care Provider] - 1 week
[2023-03-06] MEDS: ORPHENADRINE 60 MG/ 2 ML VIAL IM (08:47)
[2023-03-06] MEDS: KETOROLAC TROMETHAMINE 30 MG/ML VIAL IVP (08:47)
[2023-03-06] MEDS: FAMOTIDINE/PF 20 MG/2 ML VIAL IV (08:47)
[2023-03-06] MEDS: METHYLPREDNISOLONE SOD SUCC PF 125 MG/2 ML VIAL IVP (08:47)
[2023-03-06] MEDS: MORPHINE SULFATE 4 MG/ML VIAL IV (08:47)
[2023-03-06] MEDS: ONDANSETRON PF 4 MG/2 ML VIAL IV (08:47)
[2023-03-06 09:01] VITALS: BP 155/96; PULSE 105; RESP 18; O2SAT 94
--- NOTE | 2023-03-06 10:10 | PC.NURSE ---
this nurse attempts to ambulate pt with walker pt ambulates well with walker pt to wheelchair pt screams out in pain as he sits down in wheelchair pt leans toward the rt side and wheelchair this nurse attempts to educate pt on safety and using walker at home instead of the mcmahon pt then yells at this nurse and states he is done with me iv dcd cath intact and another nurse takes over care at this time pt ambulated with walker down hallway and to the wheelchair to the car where he then used walker to move to car
--- NOTE | 2023-03-06 10:31 | PC.NURSE ---
this nurse attempts to get patient into wheelchair this nurse utilizes walker and pt states he has one at home and doesnt use it and grabs onto mcmahon etc this nurse attempts to educate pt on using walker pt uses walker and ambulates well to chair and then screams out in pain and this nurse attempts to educate pt on safety pt yells at nurse and states im done with you this nurse takes out his iv cath intact and ambulates with walker down the hallway in care of another nurse
== END 2023-03-06 10:00 | disposition home or self-care (01) ==
PROVIDERS: Emergency Provider Emergency Medicine; PCP Family Medicine
DX: M54.9 Dorsalgia, unspecified (principal); G89.29 Other chronic pain; Z79.899 Other long term (current) drug therapy
CPT/HCPCS: 96372; 96374; 96375; 99284; J2930

== ENCOUNTER 2023-04-12 11:33 | Outpatient (OUT) | payer OTHER, SELFPAY ==
--- NOTE | 2023-04-12 11:52 | P.CN_ITS ---
Consult Note: HPI Data of Consult Patient: known to practice within the last 3 years Requesting Physician: Basilia Vincent NP Primary Care Provider: Rizwan Cool MD Consult Narrative Reason for consult: f/u Narrative: Lexa Bashir a pleasant 43 year old male presents for evaluation and management of chronic low back pain. Patient has been following with neurosurgeon and has an upcoming appointment with them, they deemed him nonsurgical. MRI reveals epidural lipomatosis and ligamentum flavum hypertrophy. Today rating pain 3/10. cc:: CC: Basilia Vincent NP Review of Systems ROS Status of ROS 10 or more systems reviewed and unremarkable except as noted in history and below Musculoskeletal Reports: back pain PFSH PFS Medical History (Updated 04/12/23 @ 12:10 by Basilia Vincent NP) Surgical History Family History Grandfather Family history of cancer Family history of hypertension Grandmother Family history of diabetes mellitus Family history of hypertension Father Family history of hypertension Mother Family history of hypertension Social History Within the past year, how often did you have a drink containing alcohol: 2-3 times a week Within the past year, how many standard drinks containing alcohol did you have on a typical day: 5 or 6 Within the past year, how often did you have six or more drinks on one occasion: weekly Total score: 7 Score interpretation: A score of 4 or more indicates drinking is likely to affect patient's safety. Smoking status: Never smoker Non-prescribed substance use: denies use Previous occupational history: unemployed Known occupational exposures/hazards: No Highest level of school completed/degree received: high school graduate Are you now , , , , never or living with a partner: In a typical week, how many times do you talk on the telephone with family, friends, or neighbors: 3 or more times per week How often do you get together with friends or relatives: once per week How often do you attend confucianist or advent services: never Do you belong to any clubs or organizations such as confucianist groups unions, fraternal or athletic groups, or school groups: no Total score: 1 Score interpretation: A score of less than or equal to 1 indicates the most socially isolated. Little interest or pleasure in doing things: not at all Feeling down, depressed, or hopeless: not at all Feel stressed/tense/nervous/anxious/difficulty sleeping: to some extent Do you think of yourself as: straight/heterosexual Gender Identity: male Meds Home Medications and Allergies Home Medications Medication Instructions Recorded Confirmed Type amlodipine 10 mg tablet 10 mg PO DAILY 12/18/22 03/01/23 History atorvastatin 80 mg tablet 80 mg PO DAILY 12/18/22 03/02/23 History duloxetine 60 mg capsule,delayed 60 mg PO DAILY 12/18/22 03/01/23 History release (Cymbalta) esomeprazole magnesium 20 mg 20 mg PO DAILY 12/18/22 03/01/23 History capsule,delayed release (Nexium 24HR) ibuprofen 800 mg tablet 800 mg PO TID PRN pain 12/18/22 03/02/23 History losartan 100 mg tablet (Cozaar) 100 mg PO DAILY 12/18/22 03/02/23 History naloxone 4 mg/actuation nasal 1 spray intranasal Q2M PRN opioid 02/24/23 03/02/23 Rx spray (Narcan) overdose #2 ea cyclobenzaprine 10 mg tablet 10 mg PO BID PRN muscle spasm 03/02/23 03/02/23 History hydrocodone 5 mg-acetaminophen 325 1 tab PO TID PRN pain 03/02/23 03/02/23 History mg tablet metoprolol tartrate 25 mg tablet 25 mg PO Q12H 03/02/23 03/02/23 History phentermine 37.5 mg tablet 37.5 mg PO QDAY 03/02/23 03/02/23 History baclofen 10 mg tablet 10 mg PO Q8H #30 tabs 03/03/23 Rx hydrocodone 5 mg-acetaminophen 325 1 tab PO TID PRN pain #90 tabs 03/15/23 Rx mg tablet Allergies Allergy/AdvReac Type Severity Reaction Status Date / Time No Known Drug Allergies Allergy Verified 03/01/23 19:12 Exam Constitutional Documenting provider has reviewed patient's vital signs: yes Common normals: no apparent distress, oriented x3, healthy appearing, alert and well nourished General appearance: cooperative HENMT Common normals: normocephalic, hearing grossly normal bilaterally and moist oral mucous membranes Head and scalp: normocephalic Eye Common normals: PERRL Pupil: PERRL Neck & C-Spine Common normals: full ROM General: normal visual inspection Chest Common normals: inspection of chest normal Respiratory Common normals: normal respiratory effort, no retractions and no use of accessory muscles Back & Pelvis Lumbar spine/lower back: ROM limited, pain with ROM and straight leg raise positive left Neuro Common normals: oriented x3, CN's II-XII intact bilaterally, moves all extremities, no focal motor deficits, no sensory deficits noted and deep tendon reflexes 2+ bilaterally Sensorium/orientation: alert Motor exam: strength 5/5 throughout and no movement abnormalities noted Psych Common normals: mental status grossly normal, thought process normal, cooperative, affect normal, speech normal and activity/motor behavior normal Speech: normal speech Thought process: normal thought process Results Additional Findings Additional findings: I have checked an [place]AR[place] report on this patient today and there are no aberrancies noted in the prescribing history.?? A drug screen was completed and reviewed within the last year, and if there has not been a drug screen completed we ordered one today to monitor higher risk, state monitored pain medication use. As part of providing excellent, safe, comprehensive care, the following was completed at our patient's visit: 1. A medication reconciliation and review to ensure accurate knowledge of current/active medications, including asking our patients to inform us about any [id number] medications or herbal remedies/nutritional supplements/alternative remedies. 2. A review to specifically ensure our patients have had annual screening for: elevated body mass index (BMI), tobacco use, screening for depression, and screening for unhealthy alcohol use. When screening is concerning, patients are provided with education and the specific recommendation to discuss the concerning health issue and treatment options with their primary care provider. Assessment and Plan Assessment and Plan (1) Chronic prescription opiate use: Assessment and Plan: I feel these medications are improving the patient's quality of life and allow them to tolerate activities of daily living as well as participate in recreational activity.? The patient does not report intolerable side effects. The patient is NOT opioid naive and non-pharmacologic and non-opioid treatment has failed to significantly relieve the patient's pain and improve functionality. The patient has a diagnosis that is related to a somatic or visceral pain etiology. ? ?? I reviewed with the patient the potential risks and side effects with the use of? opioid medications including but not limited to respiratory depression,? sedation, and even . I verified the patient has access to naloxone should? these effects occur. I advised the patient to avoid the use of any other? sedation substances including alcohol, THC, and benzodiazepines while? taking opioid medications due to the risk of compounding side effects and? detrimental outcomes. I reviewed the LIABILITY ANALYST, pain treatment agreement, urine? drug screen, and opioid start talking forms. The patient was advised to let? their family know they had Naloxone in case they would need to administer? the medication.? ?? (2) Obesity: Assessment and Plan: The patient was counseled that proper dietary changes and consistent participation in a home exercise plan can lead to weight loss. Weight loss can help to improve functionality in patients with chronic pain.? (3) Lumbar stenosis with neurogenic claudication: Assessment and Plan: see MRI findings (4) Lumbar radiculopathy: (5) Lumbar spondylosis: Plan continue current medication regimen continue f/u with neurosurgery, briefly discussed MILD procedure today patient is going to talk to NS about this patient not interested in additional injection therapy patient to f/u with PCP regarding cholesterol and weight f/u 3 months
== END 2023-04-12 11:34 | disposition home or self-care (01) ==
LOC: PM 11:33
PROVIDERS: PCP Family Medicine; Visit Provider Nurse Practitioner
DX: Z79.891 Long term (current) use of opiate analgesic (principal); E66.9 Obesity, unspecified; M48.062 Spinal stenosis, lumbar region with neurogenic claudication; M47.26 Other spondylosis with radiculopathy, lumbar region
CPT/HCPCS: G0463

== ENCOUNTER 2023-05-11 13:32 | Outpatient (OUT) | payer OTHER, SELFPAY ==
--- NOTE | 2023-05-11 15:01 | P.CN_ITS ---
Consult Note: HPI Data of Consult Patient: known to practice within the last 3 years Requesting Physician: Basilia Vincent NP Primary Care Provider: Rizwan Cool MD Consult Narrative Reason for consult: f/u Narrative: Lexa Bashir a pleasant 43 year old male presents for evaluation and management of chronic low back pain. Patient has been following with neurosurgeon who has deemed him nonsurgical. Today patient is rating pain 6/10 in low back with intermittent left leg numbness tingling and weakness. Patient responds well to flexeril and norco but continues to have pain and decreased functional ability. PT previously made patients pain worse. cc:: CC: Basilia Vincent NP Review of Systems ROS Status of ROS 10 or more systems reviewed and unremarkable except as noted in history and below Musculoskeletal Reports: back pain and joint pain (left hip) PFSH PFSH Medical History (Updated 05/11/23 @ 15:05 by Basilia Vincent NP) Ambulatory dysfunction ?R26.2 - Difficulty in walking, not elsewhere classified (ICD-10) Heartburn ?R12 - Heartburn (ICD-10) History of prediabetes ?Z87.898 - Personal history of other specified conditions (ICD-10) Hypercholesterolemia ?E78.00 - Pure hypercholesterolemia, unspecified (ICD-10) Hypertension ?I10 - Essential (primary) hypertension (ICD-10) Intractable low back pain ?M54.59 - Other low back pain (ICD-10) Kidney stone ?N20.0 - Calculus of kidney (ICD-10) Left sided sciatica ?M54.32 - Sciatica, left side (ICD-10) Leukocytosis ?D72.829 - Elevated white blood cell count, unspecified (ICD-10) Low back pain ?M54.50 - Low back pain, unspecified (ICD-10) Psoriatic arthritis ?L40.50 - Arthropathic psoriasis, unspecified (ICD-10) Rheumatoid arthritis ?M06.9 - Rheumatoid arthritis, unspecified (ICD-10) Surgical History History of ankle surgery ?Z98.890 - Other specified postprocedural states (ICD-10) Family History Grandfather Family history of cancer Family history of hypertension Grandmother Family history of diabetes mellitus Family history of hypertension Father Family history of hypertension Mother Family history of hypertension Social History Within the past year, how often did you have a drink containing alcohol: 2-3 times a week Within the past year, how many standard drinks containing alcohol did you have on a typical day: 5 or 6 Within the past year, how often did you have six or more drinks on one occasion: weekly Total score: 7 Score interpretation: A score of 4 or more indicates drinking is likely to affect patient's safety. Smoking status: Never smoker Non-prescribed substance use: denies use Previous occupational history: unemployed Known occupational exposures/hazards: No Highest level of school completed/degree received: high school graduate Are you now , , , , never or living with a partner: In a typical week, how many times do you talk on the telephone with family, friends, or neighbors: 3 or more times per week How often do you get together with friends or relatives: once per week How often do you attend confucianism or taoist services: never Do you belong to any clubs or organizations such as confucianism groups unions, [employer] or athletic groups, or school groups: no Total score: 1 Score interpretation: A score of less than or equal to 1 indicates the most socially isolated. Little interest or pleasure in doing things: not at all Feeling down, depressed, or hopeless: not at all Feel stressed/tense/nervous/anxious/difficulty sleeping: to some extent Do you think of yourself as: straight/heterosexual Gender Identity: male Meds Home Medications and Allergies Home Medications Medication Instructions Recorded Confirmed Type amlodipine 10 mg tablet 10 mg PO DAILY 12/18/22 03/01/23 History atorvastatin 80 mg tablet 80 mg PO DAILY 12/18/22 03/02/23 History duloxetine 60 mg capsule,delayed 60 mg PO DAILY 12/18/22 03/01/23 History release (Cymbalta) esomeprazole magnesium 20 mg 20 mg PO DAILY 12/18/22 03/01/23 History capsule,delayed release (Nexium 24HR) ibuprofen 800 mg tablet 800 mg PO TID PRN pain 12/18/22 03/02/23 History losartan 100 mg tablet (Cozaar) 100 mg PO DAILY 12/18/22 03/02/23 History naloxone 4 mg/actuation nasal 1 spray intranasal Q2M PRN opioid 02/24/23 03/02/23 Rx spray (Narcan) overdose #2 ea cyclobenzaprine 10 mg tablet 10 mg PO BID PRN muscle spasm 03/02/23 03/02/23 History hydrocodone 5 mg-acetaminophen 325 1 tab PO TID PRN pain 03/02/23 03/02/23 History mg tablet metoprolol tartrate 25 mg tablet 25 mg PO Q12H 03/02/23 03/02/23 History phentermine 37.5 mg tablet 37.5 mg PO QDAY 03/02/23 03/02/23 History baclofen 10 mg tablet 10 mg PO Q8H #30 tabs 03/03/23 Rx hydrocodone 5 mg-acetaminophen 325 1 tab PO TID PRN pain #90 tabs 03/15/23 Rx mg tablet hydrocodone 5 mg-acetaminophen 325 1 tab PO TID PRN pain #90 tabs 05/11/23 Rx mg tablet Allergies Allergy/AdvReac Type Severity Reaction Status Date / Time No Known Drug Allergies Allergy Verified 03/01/23 19:12 Exam Constitutional Documenting provider has reviewed patient's vital signs: yes Common normals: no apparent distress, oriented x3, healthy appearing, alert and well nourished General appearance: cooperative HENMT Common normals: normocephalic, hearing grossly normal bilaterally and moist oral mucous membranes Head and scalp: normocephalic Eye Common normals: PERRL Pupil: PERRL Neck & C-Spine Common normals: full ROM General: normal visual inspection Chest Common normals: inspection of chest normal Respiratory Common normals: normal respiratory effort, no retractions and no use of accessory muscles Back & Pelvis Lumbar spine/lower back: ROM limited, pain with ROM and straight leg raise pos itive left Other: bilateral facet loading pain over l4-5 l5-s1 Extremity Common normals: normal to inspection and full ROM Left lower extremity: hip joint Other: left hip pain with internal and external rotation Neuro Common normals: oriented x3, CN's II-XII intact bilaterally, moves all extremities, no focal motor deficits, no sensory deficits noted and deep tendon reflexes 2+ bilaterally Sensorium/orientation: alert Gait (neuro): antalgic Motor exam: strength 5/5 throughout and no movement abnormalities noted Psych Common normals: mental status grossly normal, thought process normal, cooperative, affect normal, speech normal and activity/motor behavior normal Speech: normal speech Thought process: normal thought process Assessment and Plan Assessment and Plan (1) Lumbar radiculopathy: (2) Chronic prescription opiate use: Assessment and Plan: I feel these medications are improving the patient's quality of life and allow them to tolerate activities of daily living as well as participate in recreational activity.? The patient does not report intolerable side effects. The patient is NOT opioid naive and non-pharmacologic and non-opioid treatment has failed to significantly relieve the patient's pain and improve functionality. The patient has a diagnosis that is related to a somatic or visceral pain etiology. ? ?? I reviewed with the patient the potential risks and side effects with the use of? opioid medications including but not limited to respiratory depression,? sedation, and even . I verified the patient has access to naloxone should? these effects occur. I advised the patient to avoid the use of any other? sedation substances including alcohol, THC, and benzodiazepines while? taking opioid medications due to the risk of compounding side effects and? detrimental outcomes. I reviewed the TIRE FINISHER, pain treatment agreement, urine? drug screen, and opioid start talking forms. The patient was advised to let? their family know they had Naloxone in case they would need to administer? the medication.? ?? A drug screen was completed within the last year, and no aberrancies were noted regarding their use of controlled substances. The patient understands they are subject to the terms and conditions of the pain contract that they have signed. ? ?? I have checked an [place]ARRS report on this patient today and there are no aberrancies noted in the prescribing history.? (3) Lumbar spondylosis: (4) Left hip pain: (5) Chronic back pain: (6) Osteoarthritis of left hip: Plan continue current medications, tolerating well without side effects left sciatic nerve block under fluoroscopy as directed by Dr Felix and based on assessment left hip injection under fluoroscopy as directed by Dr Felix for left hip OA and left hip pain and based on assessment follow up after injections
== END 2023-05-11 13:33 | disposition home or self-care (01) ==
PROVIDERS: PCP Family Medicine; Visit Provider Nurse Practitioner
DX: M54.16 Radiculopathy, lumbar region (principal); Z79.899 Other long term (current) drug therapy
CPT/HCPCS: G0463

== ENCOUNTER 2024-01-03 15:14 | Outpatient (OUT) | payer OTHER, SELFPAY ==
--- OUTSIDE RECORDS SUMMARY | 2024-01-03 15:24 | XMS_ITS | CCD ---
Author Organization [facility]iniSy[facility] Care Team Providers Care 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 Name Role Phone DEAN, HORTENCIA Admitting Unavailable DEAN, HORTENCIA Attending Unavailable DEAN, HORTENCIA Primary Care Unavailable DEAN, HORTENCIA Admitting Unavailable DEAN, HORTENCIA Attending Unavailable DEAN, HORTENCIA Consulting Unavailable DEAN, HORTENCIA Primary Care Unavailable DEAN, HORTENCIA Admitting Unavailable DEAN, HORTENCIA Attending Unavailable DEAN, HORTENCIA Consulting Unavailable DEAN, HORTENCIA Primary Care Unavailable HALADAQuentin, DR DEL ROSARIO Attending Unavailable HALADAY, DR DEL ROSARIO Consulting Unavailable BIENVENIDOADAY, DR DEL ROSARIO Admitting Unavailable DEAN, HORTENCIA Primary Care Unavailable HALADAQuentin, DR DEL ROSARIO Attending Unavailable DEAN, HORTENCIA Primary Care Unavailable HALADAY, DR DEL ROSARIO Admitting Unavailable DEAN, HORTENCIA Admitting Unavailable DEAN, HORTENCIA Attending Unavailable DEAN, HORTENCIA Primary Care Unavailable Best SARAVIA-Emma SHIELDS Primary Care Provider 1( [phone] Eda PARSON, Lynsey Guerrero Attending Unavailable Eda PARSON, Lynsey Guerrero Attending Unavailable Eda PARSON, Lynsey Guerrero Attending Unavailable JD Palafox Primary Care Provider JD Holt Attending Provider Marina Holt Unavailable Hortencia Palafox Primary Care Unavailable Carin Bajwa Admitting Unavailable Carin Bajwa Attending Unavailable Marina Holt Admitting Unavailable Marina Holt Attending Unavailable Hortencia Palafox Primary Care Unavailable JD Palafox Primary Care Provider MD Carni Bajwa Attending Provider Allergies Allergy Classification Reported Allergen(s) Allergy Type Date of Onset Reaction(s) Facility (2 sources) hydroCHLOROthiazide Drug Allergy 12-04-19 14 Dry mouth [facility] Work Phone: (2 sources) Lisinopril Propensity to adverse reactions to drug 12-04-19 14 Cough [facility] Medications Current Medications Medication Drug Class(es) Dates Sig (Normalized) Sig (Original) acetaminophen 325 mg / HYDROcodone bitartrate 5 mg oral tablet (4 sources) Opioid Agonist Start: 08-29-2023 take 1 tablet by mouth once Hydrocodone-Aceta minophen Active 1 TAB PO Once August 29, 2023 12:00am FreeTextSig: Oral; Note: Source Status: Not-Taking\PRN; Qty: 90 Tablet; Provider: Yanet Gray ( ) HYDROcodone-Acet aminophen 5-325 MG Oral for 30 Days Not-Taking/PRN [id number] actuat albuterol 0.09 mg/actuat metered dose inhaler (3 sources) beta2-Adrenergic Agonist Start: 08-05-2020 take 2 puff(s) by inhalation every four hours as needed Albuterol Sulfate HFA 108 (90 Base) MCG/ACT 2 puffs as needed Inhalation every 4 hrs for 30 days Jul, Active Start: 08-05-2020 take 2 puff(s) by in halation every four hours as needed Albuterol Sulfate HFA 108 (90 Base) MCG/ACT 2 puffs as needed Inhalation every 4 hrs for 30 days Jul, Active Start: 08-05-2020 take 2 puff(s) by in halation every four hours as needed Albuterol Sulfate HFA 108 (90 Base) MCG/ACT 2 puffs as needed Inhalation every 4 hrs for 30 days Jul, Active amLODIPine 10 mg oral tablet (4 sources) Dihydropyridine Calcium Channel Dusty Start: 08-29-2023 Amlodipine Active MG PO August 29, 2023 12:00am FreeTextSig: (Prior Auth#:[id number]) Oral; Note: Source Status: Taking; Qty: 30 delayed release tablet; Provider: BRIDGETTE BURNETT amLODIPine Besyl ate 10 MG (Prior Auth#:[id number]) Oral for 30 Active atorvastatin 80 mg oral tablet (6 sources) HMG-CoA Reductase Inhibitor Start: 08-29-2023 Atorvastatin Active MG PO August 29, 2023 12:00am FreeTextSig: (Prior Auth#:[id number]) Oral; Note: Source Status: Taking; Qty: 30 delayed release tablet; Provider: BRIDGETTE BURNETT Start: 12-03-2013 take 1 tablet by haris th once daily atorvastatin (LIPITOR) 40 MG tablet Take 1 Tab by mouth daily. 30 Tab 6 12/03/2013 Active Atorvastatin Yemi cium 80 MG (Prior Auth#:[id number]) Oral for 30 Active betamethasone 0.0005 mg/mg / calcipotriene 0.25504 mg/mg topical ointment (2 sources) Corticosteroid, Vitamin D Analog Start: 12-03-2013 calcipotriene-betamethasone (TACLONEX) 0.005-0.064 % ointment Apply topically daily. Apply thick amount to affected area. 100 g 6 12/03/2013 Active citalopram 20 mg oral tablet (2 sources) Serotonin Reuptake Inhibitor Start: 12-03-2013 take 1 tablet by mouth once daily citalopram (CELEXA) 20 MG tablet Take 1 Tab by mouth daily. 30 Tab 6 12/03/2013 Active cyclobenzaprine hydrochloride 10 mg oral tablet (4 sources) Muscle Relaxant Start: 08-29-2023 take 1 tablet by mouth once daily at bedtime Cyclobenzaprine Active 10 MG PO Daily at bedtime August 29, 2023 12:00am FreeTextSig: Oral; Note: Source Status: Taking; Qty: 60 Tablet; Provider: Yanet Gray ( ) Cyclobenzaprine HCl 10 MG Oral for 30 Days Active DULoxetine 60 mg delayed release oral capsule (4 sources) Serotonin and Norepinephrine Reuptake Inhibitor Start: 08-29-2023 Duloxetine Active MG PO August 29, 2023 12:00am FreeTextSig: (Prior Auth#:[id number]) Oral; Note: Source Status: Taking; Qty: 30 cap; Provider: BRIDGETTE BURNETT DULoxetine HCl 6 0 MG (Prior Auth#:[id number]) Oral for 30 Active esomeprazole 40 mg delayed release oral capsule (4 sources) Proton Pump Inhibitor Start: 08-29-2023 take 1 capsule by mouth once daily Esomeprazole Magnesium (Nexium) 40 mg capsule,delayed release(DR/EC) Active 1 CAP PO Daily August 29, 2023 12:00am FreeTextSi capsule Orally Once a day; Note: Source Status: Taking; Provider: Jaswant Quintana Start: 08-05-2020 take 1 capsule by mo uth every twenty-four hours NexIUM 40 MG 1 capsule Orally Once a day for 30 day(s) Jul, Active ibuprofen 800 mg oral tablet (4 sources) Nonsteroidal Anti-inflammatory Drug Start: 08-29-2023 take 1 tablet by mouth every eight hours at mealtime as needed Ibuprofen Active 800 MG PO Every 8 hours August 29, 2023 12:00am FreeTextSi tablet with food or milk as needed Orally every 8 hrs; Note: Source Status: Taking; Provider: Yanet Gray ( ) take 1 tablet by haris th every eight hours at mealtime as needed Ibuprofen 800 MG 1 tablet with food or milk as needed Orally every 8 hrs Active losartan potassium 100 mg oral tablet (4 sources) Angiotensin 2 Receptor Dusty Start: 08-29-2023 Losartan Active MG P O August 29, 2023 12:00am FreeTextSig: (Prior Auth#:[id number]) Oral; Note: Source Status: Taking; Qty: 30 delayed release tablet; Provider: BRIDGETTE BURNETT Losartan Potassi um 100 MG (Prior Auth#:[id number]) Oral for 30 Active metoprolol tartrate 25 mg oral tablet (6 sources) beta-Adrenergic Dusty Start: 08-29-2023 take 1 tablet by mouth twice daily at mealtime Metoprolol Tartrate Active 25 MG PO Twice daily August 29, 2023 12:00am FreeTextSig: TAKE 1 TABLET BY MOUTH TWICE DAILY WITH FOOD Oral; Note: Source Status: Taking; Refills: 0; Qty: 52 Each; Provider: Bridgette Burnett Start: 12-03-2013 take 1 tablet by haris th twice daily metoprolol (LOPRESSOR) 25 MG tablet Take 1 Tab by mouth 2 times daily. 60 Tab 6 12/03/2013 Active naproxen 500 mg oral tablet (2 sources) Nonsteroidal Anti-inflammatory Drug Start: 03-31-2014 take 1 tablet by mouth twice daily naproxen (NAPROSYN) 500 MG tablet Indications: Right shoulder pain Take 1 Tab by mouth 2 times daily. 60 Tab 3 03/31/2014 Active omeprazole 20 mg delayed release oral capsule (2 sources) Proton Pump Inhibitor Start: 12-03-2013 take 1 capsule by mouth once daily omeprazole (PRILOSEC) 20 MG capsule Take 1 Cap by mouth daily. 30 Cap 6 12/03/2013 Active phentermine hydrochloride 37.5 mg oral tablet (4 sources) Sympathomimetic Amine Anorectic Start: 08-29-2023 take 1 tablet by mouth once daily before breakfast Phentermine Active 37.5 MG PO Daily August 29, 2023 12:00am FreeTextSig: TAKE 1 TABLET BY MOUTH BEFORE BREAKFAST Oral; Note: Source Status: Taking; Refills: 0; Qty: 30 Each; Provider: Bridgette Burnett take 1 tablet by mouth before br eakfast Phentermine HCl 37.5 MG TAKE 1 TABLET BY MOUTH BEFORE BREAKFAST Oral for 30 Days Active secukinumab (1 source) Interleukin-17A Antagonist Cosen tyx Active Secukinumab (Cosentyx) 25 mg/mL solution (1 source) Start: 08-29-2023 Secukinumab (Cosentyx) 25 mg/mL solution Active IV August 29, 2023 12:00am Completed/Discontinued Medications Medication Drug Class(es) Dates Sig (Normalized) Sig (Original) methylPREDNISolone 4 mg oral tablet (3 sources) Corticosteroid Start: 08-05-2020 Medrol 4 MG as directed Orally for 6 days Jul, Not-Taking/PRN predniSONE 10 mg oral tablet (3 sources) Start: 03-14-2023 predniSONE 10 MG Take 3 tablets by mouth for 3 days then 2 tablets by mouth for 3 days then 1 tablet by mouth for 3 days Orally Once a day for Feb, Not-Taking/PRN Problems Active Problems Problem Classification Problem Date Documented Date Episodic/Chronic Anxiety disorders (3 sources) Mixed anxiety and depressive disorder; Translations: [Other specified anxiety disorders] Onset: 06-05-2013 06-05-2013 Chronic Diabetes mellitus without complication (1 source) Diabetes mellitus; Translations: [Type 2 diabetes mellitus without complications] 08-28-2023 Chronic Disorders of lipid metabolism (3 sources) Hyperlipidemia; Translations: [Hyperlipidemia, unspecified] Onset: 06-09-2013 06-09-2013 Chronic Esophageal disorders (3 sources) Gastroesophageal reflux disease; Translations: [Gastro-esophageal reflux disease without esophagitis] Onset: 04-23-2013 04-23-2013 Chronic Essential hypertension (3 sources) Hypertensive disorder; Translations: [Essential (primary) hypertension] Onset: 04-23-2013 04-23-2013 Chronic Miscellaneous mental health disorders (1 source) Mental disorder; Translations: [Mental disorder, not otherwise specified] 08-28-2023 Chronic Other and unspecified benign neoplasm (1 source) Benign lipomatous neoplasm of other sites Episodic Other diseases of kidney and ureters (1 source) Kidney disease; Translations: [Disorder of kidney and ureter, unspecified] 08-28-2023 Episodic Other inflammatory condition of skin (2 sources) Psoriasis; Translations: [Psoriasis, unspecified] Onset: 12-03-2013 12-03-2013 Chronic Other nervous system disorders (1 source) Chronic pain; Translations: [Other chronic pain] 08-29-2023 Chronic Other nutritional; endocrine; and metabolic disorders (5 sources) Morbid obesity; Translations: [Morbid (severe) obesity due to excess calories] Onset: 04-23-2013 04-23-2013 Chronic Other nutritional; endocrine; and metabolic disorders (1 source) Morbid (severe) obesity due to excess calories Chronic Other nutritional; endocrine; and metabolic disorders (1 source) Obesity; Translations: [Obesity, unspecified] 08-28-2023 Chronic Rheumatoid arthritis and related disease (1 source) Rheumatoid arthritis, unspecified Chronic Spondylosis; intervertebral disc disorders; other back problems (3 sources) Inflammation of sacroiliac joint; Translations: [Sacroiliitis, not elsewhere classified] 08-29-2023 Chronic Spondylosis; intervertebral disc disorders; other back problems (3 sources) Spinal stenosis, lumbar region with neurogenic claudication; Translations: [Radiculopathy, lumbar region] Episodic Unclassified (1 source) Arthropathic psoriasis, unspecified; 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, unspecified] Onset: 06-14-2023 Unclassified (1 source) Low back pain, unspecified; Translations: [Low back pain, unspecified] Onset: 03-14-2023 Past or Other Problems Problem Classification Problem Date Documented Da te Episodic/Chronic Immunizations and screening for infectious disease (4 sources) Encounter for screening for other viral diseases; Translations: [ENC SCREENING FOR OTH VIRAL DZ] Onset: 02-25-2021 Episodic Unclassified (1 source) Lumbar pain M54.50 Results Test Name Value Interpretation Reference Range Facility Alanine aminotransferase [En zymatic activity/volume] in Serum or PlasmaOrdered By: Carin Bajwa on 06-14-2023 ALT [Catalytic activity/Vol] 24 U/L 7-52 [facility] Albumin [Mass/volume] in Ser um or Plasma by Bromocresol green (BCG) dye binding methoOrdered By: Carin Bajwa on 06-14-2023 Albumin BCG dye [Mass/Vol] 4.5 g/dL 3.5-5.7 [facility] Alkaline phosphatase [Enzyma tic activity/volume] in Serum or PlasmaOrdered By: Carin Bajwa on 06-14-2023 ALP [Catalytic activity/Vol] 123 U/L 34-104 [facility] Aspartate aminotransferase [ Enzymatic activity/volume] in Serum or PlasmaOrdered By: Carin Bajwa on 06-14-2023 AST [Catalytic activity/Vol] 17 U/L 13-39 [facility] Basophils Auto (Bld) [#/Vol] Ordered By: Carin Bajwa on 06-14-2023 Basophils (Bld) [#/Vol] 0.2 10*3/uL 0.0-0.2 [facility] Basophils/100 WBC Auto (Bld) Ordered By: Carin Bajwa on 06-14-2023 Basophils/100 WBC (Bld) 1.3 % . F [facility] Bilirubin.total [Mass/volume ] in Serum or PlasmaOrdered By: Carin Bajwa on 06-14-2023 Bilirubin [Mass/Vol] 0.4 mg/dL 0.3-1.0 [facility] C reactive protein [Mass/vol ume] in Serum or PlasmaOrdered By: Carin Bajwa on 06-14-2023 CRP [Mass/Vol] 3.6 mg/dL 0.0-0.5 [facility] C-Reactive Proteinon 023 C-Reactive Protein 3.6 mg/dL High 0.0-0.5 [facility] Comment on above: Result Comment: PERF ORMED BY: [facility] [address] [place] [address] PATHOLOGIST PROJECT ADMIN RAYNA CHINO M.D. Performed By: #### C MP, ESR, CRP, CBC #### [facility] [address] Calcium [Mass/volume] in Ser um or PlasmaOrdered By: Carin Bajwa on 06-14-2023 Calcium [Mass/Vol] 10.0 mg/dL 8.6-10.3 [facility] Carbon dioxide, total [Moles /volume] in Serum or PlasmaOrdered By: Carin Bajwa on 06-14-2023 CO2 [Moles/Vol] 28.8 mmol/L 21.0-31.0 [facility] Chloride [Moles/volume] in S stefanie or PlasmaOrdered By: Carin Bajwa on 06-14-2023 Chloride [Moles/Vol] 97 mmol/L 98-107 [facility] Complete Blood Count Auto Di ffon 06-14-2023 Basophils (Bld) [#/Vol] 0.2 10*3/uL Normal 0.0-0.2 [facility] Comment on above: Performed By: #### C MP, ESR, CRP, CBC #### [facility] [address] [place] [address] [place] Basophils/100 WBC (Bld) 1.3 % Normal . F [facility] Comment on above: Performed By: #### C MP, ESR, CRP, CBC #### [facility] [address] [place] [address] [place] Eosinophils (Bld) [#/Vol] 0.3 10*3/uL Normal 0.0-0.45 [facility] Comment on above: Performed By: #### C MP, ESR, CRP, CBC #### [facility] [address] [place] [address] [place] Eosinophils/100 WBC (Bld) 1.7 % Normal . [facility] Comment on above: Performed By: #### C MP, ESR, CRP, CBC #### [facility] [address] Erythrocyte distribution width (RBC) [Ratio] 14.6 % Normal 12.0-14.8 [facility] Comment on above: Performed By: #### C MP, ESR, CRP, CBC #### [address] Hematocrit (Bld) [Volume fraction] 41.7 % Normal 38.8-50.0 [facility] Comment on above: Performed By: #### C MP, ESR, CRP, CBC #### [address] Hemoglobin (Bld) [Mass/Vol] 13.7 g/dL Normal 13.0-17.0 [facility] Comment on above: Performed By: #### C MP, ESR, CRP, CBC #### [address] Lymphocytes (Bld) [#/Vol] 1.7 10*3/uL Normal 1.00-4.8 [facility] Comment on above: Performed By: #### C MP, ESR, CRP, CBC #### [address] Lymphocytes/100 WBC (Bld) 11.0 % Normal . [facility] Comment on above: Performed By: #### C MP, ESR, CRP, CBC #### [address] MCH (RBC) [Entitic mass] 27.9 pg Normal 27.5-35.2 [facility] Comment on above: Performed By: #### C MP, ESR, CRP, CBC #### [address] MCV (RBC) [Entitic vol] 84.8 fL Normal 83.5-101 F [facility] Comment on above: Performed By: #### C MP, ESR, CRP, CBC #### [address] Mean Corpuscular HGB Conc 32.9 g/dL Normal 32.5-35.6 [facility] Comment on above: Performed By: #### C MP, ESR, CRP, CBC #### [address] Monocytes (Bld) [#/Vol] 0.9 10*3/uL High 0.0-0.8 [facility] Comment on above: Performed By: #### C MP, ESR, CRP, CBC #### [facility] [address] Monocytes/100 WBC (Bld) 5.8 % Normal . F [facility] Comment on above: Performed By: #### C MP, ESR, CRP, CBC #### [facility] [address] Neutrophils (Bld) [#/Vol] 12.1 10*3/uL High 1.8-7.7 [facility] Comment on above: Performed By: #### C MP, ESR, CRP, CBC #### [facility] [address] Neutrophils/100 WBC (Bld) 80.2 % Normal . [facility] Comment on above: Performed By: #### C MP, ESR, CRP, CBC #### [facility] [address] NRBC% 0.1 /100{WBC} Normal 0-0.5 [facility] Comment on above: Performed By: #### C MP, ESR, CRP, CBC #### [facility] [address] Platelet mean volume (Bld) [Entitic vol] 8.9 fL Normal 6.6-10.1 [facility] Comment on above: Performed By: #### C MP, ESR, CRP, CBC #### [facility] [address] [place] [address] [place] Platelets (Bld) [#/Vol] 328 10*3/uL Normal 150-450 [facility] Comment on above: Performed By: #### C MP, ESR, CRP, CBC #### [facility] [address] [place] [address] [place] RBC (Bld) [#/Vol] 4.92 10*6/uL Normal 3.90-5.60 [facility] Comment on above: Performed By: #### C MP, ESR, CRP, CBC #### [facility] [address] [place] [address] WBC (Bld) [#/Vol] 15.1 10*3/uL High 4.1-10.5 [facility] Comment on above: Performed By: #### C MP, ESR, CRP, CBC #### [address] Comprehensive Metabolic Pane [place] 06-14-2023 Albumin [Mass/Vol] 4.5 g/dL Normal 3.5-5.7 [facility] Comment on above: Performed By: #### C MP, ESR, CRP, CBC #### [address] Albumin/Globulin [Mass ratio] 1.6 {ratio} Normal [facility] Comment on above: Performed By: #### C MP, ESR, CRP, CBC #### [address] ALP [Catalytic activity/Vol] 123 U/L High 34-104 [facility] Comment on above: Performed By: #### C MP, ESR, CRP, CBC #### [address] ALT [Catalytic activity/Vol] 24 U/L Normal 7-52 [facility] Comment on above: Performed By: #### C MP, ESR, CRP, CBC #### [address] Anion gap [Moles/Vol] 16.4 mmol/L High 6.0-15.0 [facility] Comment on above: Performed By: #### C MP, ESR, CRP, CBC #### [address] AST [Catalytic activity/Vol] 17 U/L Normal 13-39 [facility] Comment on above: Performed By: #### C MP, ESR, CRP, CBC #### [address] Bilirubin [Mass/Vol] 0.4 mg/dL Normal 0.3-1.0 [facility] Comment on above: Performed By: #### C MP, ESR, CRP, CBC #### [address] Calcium [Mass/Vol] 10.0 mg/dL Normal 8.6-10.3 [facility] Comment on above: Performed By: #### C MP, ESR, CRP, CBC #### [address] Chloride [Moles/Vol] 97 mmol/L Low 98-107 [facility] Comment on above: Performed By: #### C MP, ESR, CRP, CBC #### [address] CO2 [Moles/Vol] 28.8 mmol/L Normal 21.0-31.0 [facility] Comment on above: Performed By: #### C MP, ESR, CRP, CBC #### [address] Creatinine [Mass/Vol] 0.65 mg/dL Low 0.70-1.30 [facility] Comment on above: Performed By: #### C MP, ESR, CRP, CBC #### [address] GFR/1.73 sq M.predicted MDRD (S/P/Bld) [Vol rate/Area] mL/min/{1.73_m2} [facility] Comment on above: Performed By: #### C MP, ESR, CRP, CBC #### [address] Globulin (S) [Mass/Vol] 2.9 g/dL Normal [facility] Comment on above: Performed By: #### C MP, ESR, CRP, CBC #### [address] Glucose [Mass/Vol] 134 mg/dL High 70-100 [facility] Comment on above: Result Comment: [facility] Glucose Reference Range is dependent on time and content of last meal. Glucose of more than 200 mg/dL in a nonstressed, ambulatory subject supports the diagnosis of Diabetes Mellitus. ADA recommended reference range Performed By: #### C MP, ESR, CRP, CBC #### [facility] [address] Potassium [Moles/Vol] 4.2 mmol/L Normal 3.5-5.1 [facility] Comment on above: Performed By: #### C MP, ESR, CRP, CBC #### [facility] [address] Protein [Mass/Vol] 7.4 g/dL Normal 6.4-8.9 [facility] Comment on above: Performed By: #### C MP, ESR, CRP, CBC #### [facility] [address] Sodium [Moles/Vol] 138 mmol/L Normal 136-145 [facility] Comment on above: Performed By: #### C MP, ESR, CRP, CBC #### [facility] [address] [place] [address] [place] Urea nitrogen [Mass/Vol] 10 mg/dL Normal 7-25 [facility] Comment on above: Performed By: #### C MP, ESR, CRP, CBC #### [facility] [address] [place] [address] [place] Creatinine [Mass/volume] in Serum or PlasmaOrdered By: Carin Bajwa on 06-14-2023 Creatinine [Mass/Vol] 0.65 mg/dL 0.70-1.30 [facility] Eosinophils Auto (Bld) [#/Vo l]Ordered By: Carin Bajwa on 06-14-2023 Eosinophils (Bld) [#/Vol] 0.3 10*3/uL 0.0-0.45 [facility] Eosinophils/100 WBC Auto (Bl d)Ordered By: Carin Bajwa on 06-14-2023 Eosinophils/100 WBC (Bld) 1.7 % . [facility] Erythrocyte Sedimentation Ra yvrose 06-14-2023 ESR (Bld) [Velocity] 60 mm/h High 0-14 [facility] Comment on above: Result Comment: PERF ORMED BY: [facility] [address] [place] [address] PATHOLOGIST PROJECT ADMIN RAYNA CHINO M.D. Performed By: #### C MP, ESR, CRP, CBC #### [facility] [address] Erythrocyte distribution wid th Auto (RBC) [Ratio]Ordered By: Carin Bajwa on 06-14-2023 Erythrocyte distribution width (RBC) [Ratio] 14.6 % 12.0-14.8 [facility] Erythrocyte sedimentation ra te by Photometric methodOrdered By: Carin Bajwa on 06-14-2023 ESR Photometric method (Bld) [Velocity] 60 mm/hr 0-14 [facility] Globulin Calc (S) [Mass/Vol] Ordered By: Carin Bajwa on 06-14-2023 Globulin (S) [Mass/Vol] 2.9 g/dL [facility] Glucose [Mass/volume] in Ser um or PlasmaOrdered By: Carin Bajwa on 06-14-2023 Glucose [Mass/Vol] 134 mg/dL 70-100 [facility] Comment on above: ADA recommended refe rence rangeRandom Glucose Reference Range is dependent on time and content of last meal. Glucose of more than 200 mg/dL in a nonstressed, ambulatory subject supports the diagnosis of Diabetes Mellitus. Hematocrit Auto (Bld) [Volum e fraction]Ordered By: Carin Bajwa on 06-14-2023 Hematocrit (Bld) [Volume fraction] 41.7 % 38.8-50.0 [facility] Hemoglobin [Mass/volume] in BloodOrdered By: Carin Bajwa on 06-14-2023 Hemoglobin (Bld) [Mass/Vol] 13.7 g/dL 13.0-17.0 [facility] Leukocytes [#/volume] correc victoria for nucleated erythrocytes in Blood by Automated counOrdered By: Carin Bajwa on 06-14-2023 WBC corrected for nucl RBC Auto (Bld) [#/Vol] 15.1 10*3/uL 4.1-10.5 [facility] Lymphocytes Auto (Bld) [#/Vo l]Ordered By: Carin Bajwa on 06-14-2023 Lymphocytes (Bld) [#/Vol] 1.7 10*3/uL 1.00-4.8 [facility] Lymphocytes/100 WBC Auto (Bl d)Ordered By: Carin Bajwa on 06-14-2023 Lymphocytes/100 WBC (Bld) 11.0 % . [facility] MCH Auto (RBC) [Entitic mass ]Ordered By: Carin Bajwa on 06-14-2023 MCH (RBC) [Entitic mass] 27.9 pg 27.5-35.2 [facility] MCHC Auto (RBC) [Mass/Vol]Or dered By: Carin Bajwa on 06-14-2023 MCHC (RBC) [Mass/Vol] 32.9 g/dL 32.5-35.[address] [facility] MCV Auto (RBC) [Entitic vol] Ordered By: Carin Bajwa on 06-14-2023 MCV (RBC) [Entitic vol] 84.8 fL 83.5-101 F [facility] Monocytes Auto (Bld) [#/Vol] Ordered By: Carin Bajwa on 06-14-2023 Monocytes (Bld) [#/Vol] 0.9 10*3/uL 0.0-0.8 [facility] Monocytes/100 WBC Auto (Bld) Ordered By: Carin Bajwa on 06-14-2023 Monocytes/100 WBC (Bld) 5.8 % . F [facility] [place] Neutrophils Auto (Bld) [#/Vo l]Ordered By: Carin Bajwa on 06-14-2023 Neutrophils (Bld) [#/Vol] 12.1 10*3/uL 1.8-7.7 [facility] Neutrophils/100 WBC Auto (Bl d)Ordered By: Carin Bajwa on 06-14-2023 Neutrophils/100 WBC (Bld) 80.2 % . [facility] No Panel InformationOrdered By: Carin Bajwa on 06-14-2023 Estimated GFR (CKD-EPI) > 60.0 mL/Min [facility] Creatinine Clearance (Chem N/A [facility] Nucleated erythrocytes [Pres ence] in Blood by Automated countOrdered By: Carin Bajwa on 06-14-2023 Nucleated RBC Auto Ql (Bld) 0.1 /100{WBC} 0-0.5 [facility] Platelet mean volume Auto (B ld) [Entitic vol]Ordered By: Carin Bajwa on 06-14-2023 Platelet mean volume (Bld) [Entitic vol] 8.9 fL 6.6-10.1 [facility] Platelets Auto (Bld) [#/Vol] Ordered By: Carin Bajwa on 06-14-2023 Platelets (Bld) [#/Vol] 328 10*3/uL 150-450 [facility] Potassium [Moles/volume] in Serum or PlasmaOrdered By: Carin Bajwa on 06-14-2023 Potassium [Moles/Vol] 4.2 mmol/L 3.5-5.1 [facility] Protein [Mass/volume] in Ser um or PlasmaOrdered By: Carin Bajwa on 06-14-2023 Protein [Mass/Vol] 7.4 g/dL 6.4-8.9 [facility] RBC Auto (Bld) [#/Vol]Ordere d By: Carin Bajwa on 06-14-2023 RBC (Bld) [#/Vol] 4.92 10*6/uL 3.90-5.60 [facility] Serum or plasma albumin/glob ulin mass ratioOrdered By: Carin Bajwa on 06-14-2023 Albumin/Globulin [Mass ratio] 1.6 {ratio} [facility] Serum or plasma anion gap de terminationOrdered By: Carin Bajwa on 06-14-2023 Anion gap [Moles/Vol] 16.4 mmol/L 6.0-15.0 [facility] Sodium [Moles/volume] in Ser um or PlasmaOrdered By: Carin Bajwa on 06-14-2023 Sodium [Moles/Vol] 138 mmol/L 136-145 [facility] Urea nitrogen [Mass/volume] in Serum or PlasmaOrdered By: Carin Bajwa on 06-14-2023 Urea nitrogen [Mass/Vol] 10 mg/dL 7-25 [facility] WBC Auto (Bld) [#/Vol]Ordere d By: Carin Bienvenidomio on 06-14-2023 WBC (Bld) [#/Vol] 15.1 10*3/uL 4.1-10.5 [facility] XR lumbar spine 6V w bending on 03-14-2023 XR lumbar spine 6[place] [id number] XRay Report Signed Patient: Lexa Bashir MR#: [id number] 40 : 1980 Acct:[id number] Age/Sex: 42 / M ADM Date: 03/14/23 Loc: XD Room: Type: [facility] Attending Dr: Marina MILES Copies to: JD Hooker Ordering Provider: JD Hooker Date of Service: 03/14/23 XR/XR lumbar spine 6V w bending: M54.50 LUMBAR SPINE - 7 views CLINICAL HISTORY: Low back pain down left leg for 3 months. COMPARISON: Lumbar spine 01/12/2021 FINDINGS: Suboptimal evaluation due to body habitus. Vertebral body and disc space heights appear maintained. No pathological motion on flexion or extension views. SI joints appear unremarkable. XR/XR lumbar spine 6V w bending IMPRESSION: NO ACUTE BONY PROCESS OR SIGNIFICANT DEGENERATIVE CHANGE. Impression dictated by: Bronwyn Martinez Jr.OAnjel03/14/2023 3:43 PM Dictation Location: [place] [address] Transcribed By: [facility] 03/14/23 1543 Dictated By: Lexa Hooks Jr, DO 03/14/23 1541 Signed By: 03/14/23 1543 Normal [facility] XR lumbar spine 6V w bending [facility] [employer] Other XR lumbar spine 6V w bending [facility] [employer] Other XR lumbar spine 6V w bending [address] [place] [address] [employer] Other XR lumbar spine 6V w bending [address] [employer] Other XR lumbar spine 6V w bending XRay Report [employer] Other XR lumbar spine 6V w bending Signed [employer] Other XR lumbar spine 6V w bending Patient: Lexa Bashir MR#: [id number] [employer] Other XR lumbar spine 6V w bending 41 [employer] Other XR lumbar spine 6V w bending : 1980 Acct:[id number] [employer] Other XR lumbar spine 6V w bending Age/Sex: 42 / M ADM Date: 03/14/23 [employer] Other XR lumbar spine 6V w bending Loc: XD Room: Type: [facility] [employer] Other XR lumbar spine 6V w bending Attending Dr: Marina MILES [employer] Other XR lumbar spine 6V w bending Copies to: JD Hooker [employer] Other XR lumbar spine 6V w bending Ordering Provider: JD Hooker [employer] Other XR lumbar spine 6V w bending Date of Service: 03/14/23 [employer] Other XR lumbar spine 6V w bending XR/XR lumbar spine 6V w bending: M54.50 [employer] Other XR lumbar spine 6V w bending LUMBAR SPINE - 7 views [employer] Other XR lumbar spine 6V w bending CLINICAL HISTORY: Low back pain down left leg for 3 months. [employer] Other XR lumbar spine 6V w bending COMPARISON: Lumbar spine 01/12/2021 [employer] Other XR lumbar spine 6V w bending maintained. No pathological motion on flexion or extension views. SI joints appear unremarkable. [employer] Other XR lumbar spine 6V w bending XR/XR lumbar spine 6V w bending [employer] Other XR lumbar spine 6V w bending IMPRESSION: [employer] Other XR lumbar spine 6V w bending NO ACUTE BONY PROCESS OR SIGNIFICANT DEGENERATIVE CHANGE. [employer] Other XR lumbar spine 6V w bending Impression dictated by: Lexa Hooks Jr., D.O.03/14/2023 3:43 PM [employer] Other XR lumbar spine 6V w bending Dictation Location: RADIO-PC-14 [employer] Other XR lumbar spine 6V w bending Transcribed By: PWS 03/14/23 [facility] [employer] Other XR lumbar spine 6V w bending Dictated By: Lexa Hooks Jr DO 03/14/23 [facility] [employer] Other XR lumbar spine 6V w bending Signed By: [employer] Other XR lumbar spine 6V w bending 03/14/23 [facility] [employer] Other QUANTIFERON TB GOLD PLUS (NO N-INC)on 03-02-2021 Comment Incubation performed. Normal [facility] Comment on above: Performed By: #### Q NTTBG #### [facility] [address] [place] [address] Tiffanie Steward Criteria Comment Normal [facility] Comment on above: Result Comment: The QuantiFERON-TB Gold Plus result is determined by subtracting the Nil value from either TB antigen (Ag) tube. The mitogen tube serves as a control for the test. Performed By: #### Q NTTBG #### [facility] [address] [place] [address] Tiffanie Nichelle Mitogen Value >10.00 Normal [facility] Comment on above: Performed By: #### Q NTTBG #### [facility] [address] [place] [address] Tiffanie Nichelle Nill Value 0.13 IU/mL Normal [facility] Comment on above: Performed By: #### Q NTTBG #### [facility] [address] [id number] Tiffanie Steward Quantiferon Gold Plus Negative Normal Negative [facility] Comment on above: Result Comment: Chem iluminescence immunoassay methodology Performed By: #### Q NTTBG #### [facility] [address] [address] Tiffanie Steward TB1 Ag Value 0.12 IU/mL Normal [facility] Comment on above: Performed By: #### Q NTTBG #### [facility] [address] [address] Tiffanie Steward TB2 Ag Value 0.18 IU/mL Normal [facility] Comment on above: Performed By: #### Q NTTBG #### [facility] [address] [place], [place] [address] Tiffanie Steward TESTOSTERONE, TOTALon 2020 Testosterone [Mass/Vol] 193 ng/dL Critically low 264-916 [facility] Comment on above: Result Comment: Adul t male reference interval is based on a population of healthy nonobese males (BMI <30) between 19 and 39 years old. melony Castrejon.al. JCEM 2017,102;6897-9078. PMID: [id number]. Please note reference interval change Performed By: #### T ESTTOT #### [facility] [address] [place], [place] [address] Tiffanie Steward FREE THYROXINE INDEX T7on FTI 2.02 Normal [facility] Comment on above: Performed By: #### T 7, TSH #### [facility] [address] [place], [place] [address] Tiffanie Steward T3U 36.0 % Normal 23.5-40.5 [facility] Comment on above: Performed By: #### T 7, TSH #### [facility] [address] [id number] Tiffanie Steward T4 [Mass/Vol] 5.60 ug/dL Normal 5.53-11.00 [facility] Comment on above: Performed By: #### T 7, TSH #### [facility] [address] [place], [place] [address] Tiffanie Steward TSHon 12-10-2020 TSH 3.123 uIU/mL Normal 0.470-4.680 [facility] Comment on above: Performed By: #### T 7, TSH #### [facility] [address] [place] [address] Tiffanie Steward TSH RANGE SEE BELOW Normal [facility] Comment on above: Result Comment: <0.3 4 UIU/ml HYPERTHYROID 0.34-5.60 UIU/ml EUTHYROID >5.60 UIU/ml HYPOTHYROID Performed By: #### T 7, TSH #### [facility] [address] [place] [address] Tiffanie Steward INSULINon 11-30-2020 Insulin 80.0 uIU/mL Critically high 2.6-24.9 [facility] Comment on above: Performed By: #### I NSULIN #### [facility] [address] [place] [address] Tiffanie Nichelle CBC AUTO DIFFon 11-28-2020 BASO # 0.1 103/ul Normal 0.0-0.1 [facility] Comment on above: Performed By: #### C BC #### [facility] [address] [place] [address] Tiffanie Nichelle Basophils/100 WBC (Bld) 0.7 % Normal 0.2-2.0 [facility] Comment on above: Performed By: #### C BC #### [facility] [address] [place] [address] Tiffanie Nichelle EO # 0.2 103/ul Normal 0.0-0.7 [facility] Comment on above: Performed By: #### C BC #### [facility] [address] [place] [address] Tiffanie Nichelle Eosinophils/100 WBC (Bld) 1.8 % Normal 0.9-7.0 [facility] Comment on above: Performed By: #### C BC #### [facility] [address] [place], [place] [address] Tiffanie Nichelle Erythrocyte distribution width (RBC) [Ratio] 13.3 % Normal 11.0-15.0 [facility] Comment on above: Performed By: #### C BC #### [facility] [address] [place], [place] [address] Tiffanie Nichelle Hematocrit (Bld) [Volume fraction] 44.2 % Normal 42.0-54.0 [facility] Comment on above: Performed By: #### C BC #### [facility] [address] [place] [address] Tiffanie Nichelle Hemoglobin (Bld) [Mass/Vol] 14.4 g/dL Normal 14.0-18.0 [facility] Comment on above: Performed By: #### C BC #### [facility] [address] [place] [address] Tiffanie Nichelle IG # 0.05 10e3/ul Critically high 0.00-0.03 [facility] Comment on above: Performed By: #### C BC #### [facility] [address] [place] [address] Tiffanie Nichelle IG % 0.4 % Normal 0.0-0.5 [facility] Comment on above: Performed By: #### C BC #### [facility] [address] [place] [address] Tiffanie Nichelle LYMPH # 1.7 103/ul Normal 1.2-3.8 [facility] Comment on above: Performed By: #### C BC #### [facility] [address] [place], [place] [address] Tiffanie Nichelle Lymphocytes/100 WBC (Bld) 14.4 % Critically low 20.5-60.0 [facility] Comment on above: Performed By: #### C BC #### [facility] [address] [place], [place] [address] Tiffanie Nichelle MANUAL DIFF REQ NO Normal [facility] Comment on above: Performed By: #### C BC #### [facility] [address] [place], [place] [address] Tiffanie Nichelle MCH (RBC) [Entitic mass] 28.5 pg Normal 25.9-34.0 [facility] Comment on above: Performed By: #### C BC #### [facility] [address] [place] [address] Tiffanie Steward MCHC (RBC) [Mass/Vol] 32.6 g/dL Normal 29.9-35.2 [facility] Comment on above: Performed By: #### C BC #### [facility] [address] [place] [address] Tiffanie Steward MCV (RBC) [Entitic vol] 87.5 fL Normal 80.0-94.0 [facility] Comment on above: Performed By: #### C BC #### [facility] [address] [place] [address] Tiffanie Steward MONO # 0.7 103/ul Normal 0.3-0.8 [facility] Comment on above: Performed By: #### C BC #### [facility] [address] [place] [address] Tiffanie Steward Monocytes/100 WBC (Bld) 6.1 % Normal 1.7-12.0 [facility] Comment on above: Performed By: #### C BC #### [facility] [address] [place] [address] Tiffanie Steward NEUT # 9.0 103/ul Critically high 1.4-6.5 [facility] Comment on above: Performed By: #### C BC #### [facility] [address] [place] [address] Tiffanie Steward Neutrophils/100 WBC (Bld) 76.6 % Critically high 43.0-75.0 [facility] Comment on above: Performed By: #### C BC #### [facility] [address] [place], [place] [address] Tiffanie Steward Platelet mean volume (Bld) [Entitic vol] 10.4 fL Normal 9.5-13.5 [facility] Comment on above: Performed By: #### C BC #### [facility] [address] [place] [address] Tiffanie Nichelle PLT 311 103/ul Normal 150-450 [facility] Comment on above: Performed By: #### C BC #### [facility] [address] [address] Tiffanie Steward RBC 5.05 106/ul Normal 4.70-6.10 [facility] Comment on above: Performed By: #### C BC #### [facility] [address] [address] Tiffanie Steward WBC 11.8 103/ul Critically high 4.0-11.0 [facility] Comment on above: Performed By: #### C BC #### [facility] [address] [address] Tiffanie Steward GLYCOHEMOGLOBIN A1Con 2020 ADA RECOMMENDATION ADA THERAPEUTIC TARGET 6.0 - 7.0 ACTION SUGGESTED > 7.0 Normal [facility] Comment on above: Performed By: #### A 1C #### [facility] [address] [place] [address] Tiffanie Steward Glucose [Mass/Vol] 105 mg/dL Normal [facility] Comment on above: Performed By: #### A 1C #### [facility] [address] [id number] Tiffanie Steward HbA1c (Bld) [Mass fraction] 5.3 % Normal <=6.0 [facility] Comment on above: Performed By: #### A 1C #### [facility] [address] [place], [place] [address] Tiffanie Steward LIPID PROFILEon 11-28-2020 CHOL-HDL RATIO NORM SEE BELOW Normal [facility] Comment on above: Result Comment: 3.3 - 4.4 LOW RISK 4.4 - 7.1 AVERAGE RISK 7.1 - 11.0 MODERATE RISK >11.0 HIGH RISK Performed By: #### C MP, LIPID #### [facility] [address] [place], [place] [address] Tiffanie Steward Cholesterol [Mass/Vol] 231 mg/dL Critically high <=200 [facility] Comment on above: Performed By: #### C MP, LIPID #### [facility] [address] [place], [place] [address] Tiffanie Nichelle Cholesterol in HDL [Mass/Vol] 40 mg/dL Normal [facility] Comment on above: Performed By: #### C MP, LIPID #### [facility] [address], [place] [address] Tiffanie Nichelle Cholesterol in LDL [Mass/Vol] 123.0 mg/dL Normal [facility] Comment on above: Performed By: #### C MP, LIPID #### [facility] [address] [place], [place] [address] Tiffanie Nichelle Cholesterol.total/Aleida sterol in HDL [Mass ratio] 5.8 {ratio} Normal [facility] Comment on above: Performed By: #### C MP, LIPID #### [facility] [address] [place] [address] Tiffanie Nichelle HDL NORMAL > or = 60 mg/dl - LOW CARDIOVASCULAR RISK <40 mg/dl - HIGH CARDIOVASCULAR RISK Normal [facility] Comment on above: Performed By: #### C MP, LIPID #### [facility] [address] [place], [place] [address] Tiffanie Nichelle LDL CALC NORMAL SEE BELOW Normal [facility] Comment on above: Result Comment: <100 mg/dl OPTIMAL 100 - 129 mg/dl NEAR OR ABOVE OPTIMAL 130 - 159 mg/dl BORDERLINE HIGH 160 - 189 mg/dl HIGH >190 mg/dl VERY HIGH Performed By: #### C MP, LIPID #### [facility] [address] [place], [place] [address] Tiffanie Nichelle Triglyceride [Mass/Vol] 340 mg/dL Critically high <=150 [facility] Comment on above: Performed By: #### C MP, LIPID #### [facility] [address], [place] [address] Tiffanie Nichelle VLDL CALC 68.0 mg/dL Normal [facility] Comment on above: Performed By: #### C MP, LIPID #### [facility] [address], [place] [address] Tiffanie Nichelle PROF 14(COMP METB)on 021 Albumin [Mass/Vol] 3.8 g/dL Normal 3.5-5.0 [facility] Comment on above: Performed By: #### C MP, LIPID #### [facility] [address], [place] [address] Tiffanie Nichelle Albumin/Globulin [Mass ratio] 0.8 {ratio} Normal [facility] Comment on above: Performed By: #### C MP, LIPID #### [facility] [address] [address] Tiffanie Nichelle ALP [Catalytic activity/Vol] 136 U/L Critically high 38-126 [facility] Comment on above: Performed By: #### C MP, LIPID #### [facility] [address] [address] Tiffanie Nichelle ALT [Catalytic activity/Vol] 43 U/L Normal 21-72 [facility] Comment on above: Performed By: #### C MP, LIPID #### [facility] [address] [place], [place] [address] Tiffanie Nichelle Anion gap [Moles/Vol] 13.0 mmol/L Normal [facility] Comment on above: Performed By: #### C MP, LIPID #### [facility] [address] [place], [place] [address] Tiffanie Nichelle AST [Catalytic activity/Vol] 21 U/L Normal 17-59 [facility] Comment on above: Performed By: #### C MP, LIPID #### [facility] [address] [place], [place] [address] Tiffanie Nichelle Bilirubin [Mass/Vol] 0.4 mg/dL Normal 0.2-1.3 [facility] Comment on above: Performed By: #### C MP, LIPID #### [facility] [address] [address] Tiffanie Nichelle Calcium [Mass/Vol] 9.6 mg/dL Normal 8.4-10.2 [facility] Comment on above: Performed By: #### C MP, LIPID #### [facility] [address] [address] Tiffanie Nichelle Chloride [Moles/Vol] 101 mmol/L Normal 98-107 [facility] Comment on above: Performed By: #### C MP, LIPID #### [facility] [address] [address] Tiffanie Nichelle CO2 [Moles/Vol] 27.6 mmol/L Normal 22.0-30.0 [facility] Comment on above: Performed By: #### C MP, LIPID #### [facility] [address] [address] Tiffanie Nichelle Creatinine [Mass/Vol] 0.90 mg/dL Normal 0.66-1.25 [facility] Comment on above: Performed By: #### C MP, LIPID #### [facility] [address] [address] Tiffanie Nichelle EGFR-AF TAJIK >60 Normal >=60 [facility] Comment on above: Performed By: #### C MP, LIPID #### [facility] [address] [place] [address] Tiffanie Nichelle EGFR-NON AF TAJIK >60 Normal >=60 [facility] Comment on above: Performed By: #### C MP, LIPID #### [facility] [address] [place], [place] [address] Tiffanie Nichelle Globulin (S) [Mass/Vol] 4.7 g/dL Normal [facility] Comment on above: Performed By: #### C MP, LIPID #### [facility] [address] [place] [address] Tiffanie Nichelle Glucose [Mass/Vol] 117 mg/dL Critically high 74-106 [facility] Comment on above: Performed By: #### C MP, LIPID #### [facility] [address] [place] [address] Tiffanie Nichelle Potassium [Moles/Vol] 3.6 mmol/L Normal 3.4-5.0 [facility] Comment on above: Performed By: #### C MP, LIPID #### [facility] [address] [place], [place] [address] Tiffanie Nichelle Protein [Mass/Vol] 8.5 g/dL Critically high 6.1-8.2 [facility] Comment on above: Performed By: #### C MP, LIPID #### [facility] [address], [place] [address] Tiffanie Nichelle Sodium [Moles/Vol] 138 mmol/L Normal 137-145 [facility] Comment on above: Performed By: #### C MP, LIPID #### [facility] [address], [place] [address] Tiffanie Nichelle Urea nitrogen [Mass/Vol] 7.0 mg/dL Critically low 9.0-20.0 [facility] Comment on above: Performed By: #### C MP, LIPID #### [facility] [address], [place] [address] Tiffanie Nichelle Urea nitrogen/Creatinine [Mass ratio] 7.8 mg/mg Normal [facility] Comment on above: Performed By: #### C MP, LIPID #### [facility] [address], [place] [address] Tiffanie Nichelle Vital Signs Date Time Vital Sign Value Performing Clinician Facility 08-29-2023 09:42-0500 Body height 170.18 cm [employer]-Aki Palafox Work Phone: [facility] 08-29-2023 09:42-0500 Body mass index (BMI) [Ratio] 66.1 kg/m2 [employer]Aki Palafox Work Phone: [facility] 08-29-2023 09:42-0500 Body weight 191.41 kg [employer]-Aki Palafox Work Phone: [facility] 08-29-2023 09:42-0500 Heart rate 114 /min [employer]-Aki Palafox Work Phone: [facility] 08-29-2023 09:42-0500 SaO2% (BldA) [Mass fraction] 98 % [employer]Aki Palafox Work Phone: [facility] 06-29-2023 14:00-0500 Body height 170.18 cm Marina Holt Other [facility] 06-29-2023 14:00-0500 Body mass index (BMI) [Ratio] 64.05 kg/m2 Marina Holt Other [employer] Other 06-29-2023 14:00-0500 Body weight 185.52 kg Marina Holt Other [employer] Other 06-29-2023 14:00-0500 Body weight 185.51 kg [employer]-C Hortencia Palafox Work Phone: [facility] 06-29-2023 14:00-0500 Respiratory rate 18 /min Marina Holt Other [employer] Other 06-29-2023 14:00-0500 SaO2% (BldA) [Mass fraction] 92 % Marina Holt Other [employer] Other 03-14-2023 13:00-0400 Body height 170.18 cm Marina Holt Other [employer] Other 03-14-2023 13:00-0400 Body mass index (BMI) [Ratio] 58.57 kg/m2 MarinaSmaato Other [employer] Other 03-14-2023 13:00-0400 Body weight 169.65 kg Marina Holt Other [employer] Other Encounters Encounter Date Encounter Type Care Provider Facility Start: 08-29-2023 End: 08-29-2023 ambulatory [employer]C Hortencia Palafox Work Phone: [facility] Work Phone: Start: 08-29-2023 End: 08-29-2023 Patient encounter procedure [employer]C Hortencia Palafox Work Phone: [facility] Work Phone: Start: 06-29-2023 End: 06-29-2023 ambulatory Marina Holt Other [employer] Other Start: 06-29-2023 Office outpatient vi sit 25 minutes Marina Holt [facility] Start: 06-29-2023 End: 06-29-2023 Patient encounter procedure [employer]C Hortencia Bridgette Work Phone: [facility] Work Phone: Start: 06-25-2023 Letter encounter Emma Jewell CEO-[employer] MANAGER Work Phone: [facility] Start: 06-14-2023 End: 06-14-2023 ambulatory Hortencia Palafox Facility:[facility] Start: 06-14-2023 End: 06-14-2023 Patient encounter procedure [employer] Hortencia Bridgette Work Phone: [facility] [address] Work Phone: Start: 03-30-2023 End: 03-30-2023 ambulatory Marina Holt Other [facility] [employer] Other Start: 03-30-2023 Telephone encounter Marina Holt [facility] Start: 03-14-2023 End: 03-14-2023 Patient encounter procedure [employer]C Hortencia Bridgette Work Phone: [facility] Work Phone: Start: 03-14-2023 End: 03-14-2023 ambulatory [employer]C Hortencia Jennifer Bridgette Work Phone: [facility] [facility] Work Phone[facility] Start: 03-14-2023 Office outpatient ne w 45 minutes Marina Holt 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 Work Phone: [facility] Start: 08-26-[address] CARIN BAJWA Facil ity:[facility] Start: 03-19-2021 ambulatory HORTENCIA MORAN Facility:[facility] Start: 02-25-2021 End: 02-26-[address] CARIN BAJWA Facility:[facility] Start: 12-18-2020 Encounter for genera l adult medical examination without abnormal findings HORTENCIA MORAN [facility] Start: 12-10-2020 End: 12-11-2020 ambulatory HORTENCIA MORAN Facility:[facility] Start: 12-10-2020 End: 12-11-2020 Encounter for general adult medical examination without abnormal findings HORTENCIA MORAN Facility:[facility] Start: 11-28-2020 End: 11-29-2020 ambulatory HORTENCIA MORAN Facility:[facility] Start: 08-29-2020 ambulatory HORTENCIA MORAN Facility:[facility] Procedures Date Procedure Procedure Detail Performing Clinician Start: 03-14-2023 X-ray of lumbar spin e, six views including bending views [employer] Hortencia Palafox Work Phone: Plan of Treatment Date Care Activity Detail Author Start: 2029 Shingles (RZV) Vacci ne (1 of 2) Shingles (RZV) Vaccine (1 of 2) [facility] Start: 03-17-2023 Influenza vaccination Influenza Vacc ine (#1) [facility] Start: 04-16-2022 Influenza vaccination Influenza Vacc ine (#1) [facility] Start: 12-03-2018 Lipid panel Cholesterol [facility] Start: 12-03-2014 Basic metabolic 2000 panel - Serum or Plasma Basic Metabolic Panel [facility] Start: 12-03-2014 Creatinine measurement Basic Metabol ic Panel [facility] Start: 2006 HPV Vaccine (optiona l start 27-45 years) HPV Vaccine (optional start 27-45 years) [facility] Start: 1998 Tetanus vaccination Tetanus (T d or Tdap) Booster [facility] Start: 1997 Hepatitis C screening Hepatitis C An tibody [facility] Start: 1979 COVID-19 Vaccine (#1) COVID-19 Vacci ne (#1) [facility] Payers Date Payer Category Payer Medicaid [id number] [id number] 2023 Self-pay [id number] 2013 Unknown [id number] 1979 Unknown [id number] 2.16.84 [id number] 1979 Unknown [id number] 2.16.84 [id number] 1979 Unknown [id number] 2.16.84 [id number] 1979 Unknown [id number] 2.16.84 0.1.948342.3.579.2.593 1979 Unknown [id number] 2.16.84 0.1.050670.3.579.2.593 1979 Unknown [id number] 2.16.84 0.1.195000.3.579.2.593 1979 Unknown [id number] 2.16. [id number] 1979 Unknown [id number] 2.16. 840.1.898948.3.579.2.196 1979 Unknown [id number] 2.16. [id number] 1959 Self-pay [id number] 1959 Unknown [id number] Unknown [id number] 2.16.8 [id number] Unknown [id number] 2.16.8 [id number] Social History Date Type Detail Facility Start: 04-23-2013 Tobacco smoking stat [facility] Never smoked tobacco [facility] Start: 08-31-2021 Alcohol intake Current drinke r of alcohol (finding) [facility] Start: 04-23-2013 Alcohol Comment 6-10 BEER DAILY [facility] Start: 1979 Sex Assigned At [facility] file [facility] Start: 1980 Sex Assigned At Male F [facility] Sex Assigned At [employer] Other Goals Date Patient Goal Desired Activity /State Personal health goal Evaluation note 06-29-2023 Note Date & Type Note Facility 06-29-2023 Evaluation note Encounter Date Diagnosis Assessment Notes Jun, Left lumbar radiculopathy (ICD-10 - M54.16) I independently reviewed the x-ray and MRI of the lumbar spine and which shows multilevel spondylitic changes superimposed on congenitally shortened pedicles and epidural lipomatosis. Mild bilateral facet and ligamentum flavum hypertrophy. Discussion with Dr. Felix in which patient is not a surgical candidate at this time. Patient is currently having S1 radicular symptoms, upon examination patient may benefit from piriformis injection and posterior hip injection. Pharmacological management patient will continue with current medication as prescribed. Would like to get second opinion from Pain management. WIll refer to Dr Callahan. Follow-up in 12 weeks. Jun, Lumbosacral radiculopathy at S1 (ICD-10 - M54.17) Jun, Rheumatoid arthritis involving multiple sites, unspecified whether rheumatoid factor present (ICD-10 - M06.9) [employer] Other Evaluation note 03-14-2023 Note Date & Type Note Facility 03-14-2023 Evaluation note Encounter Date Diagnosis Assessment Notes Feb, Lumbar pain (ICD-10 - M54.50) Independently reviewed the x-ray and MRI of the lumbar spine and which shows multilevel spondylitic changes superimposed on congenitally shortened pedicles and epidural lipomatosis. Mild bilateral facet and ligamentum flavum hypertrophy. Discussion with Dr. Felix in which patient is not a surgical candidate at this time. Patient is currently having S1 radicular symptoms, upon examination patient may benefit from piriformis injection and posterior hip injection. Pharmacological management patient will continue with current medication as prescribed. Advised to stop pain medication, Hydrocodone. Will order prednisone taper. Follow-up in 12 weeks. Feb, Epidural lipomatosis (ICD-10 - D17.79) Feb, Spinal stenosis of lumbar region with neurogenic claudication (ICD-10 - M48.062) Feb, Obesity, morbid, BMI 50 or higher (ICD-10 - E66.01) Education completed on diet, exercise, sugary and caloric intake. Education on 1lb weight has 4lbs of pressure to the spine. States he was borderline Diabetic A1C 6. Patient would benefit from weight management. Discussion of ozempic/semagluti de. WIll follow up with PCP Dr Palafox. [employer] Other Clinical Note 03-14-2023 Note Date & Type Note Facility 03-14-2023 Note [employer] Other FINDINGS: Suboptimal evalu ation due to body habitus. Vertebral body and disc space heights appear Evaluation note Note Date & Type Note Facility Evaluation note No assessment information availa [facility] Work Phone: Evaluation note Note Date & Type Note Facility Evaluation note No Information [employer] Other History general Narrative - Reported Note Date & Type Note Facility History general Narrative - Reported Type Medical History HTN (hypertension) Medical History GERD (gastroesophageal reflux di sease) Medical History Anxiety Medical History diabetes mallitus Medical History high cholesterol Medical History kidney disease Medical History obesity Medical History psychiatric disorder Surgical History fracture repair right ankle Hospitalization History see above [employer] Other Summary Purpose Family History Relationship Condition Age at Onset Recorded Date/T omid father Hypertension Unknown Advance Directives Advance Directive Response Recorded Date/ Time Advance Directives No January 13 12:26pm Advance Directive Response Recorded Date/ Time Advance Directives No January 13 11:26am Chief Complaint and Reason for Visit Chief Complaint M54.50 Chief Complaint Z79.899, PSORIATIC A RTHRITIS Follow Up Low Back ref Marina Holt lumbar pain Additional Source Comments (unrecognized sect ion and content) No Status Records FoundNo Status Records FoundNo Status Records Found INFORMATION SOURCE (unrecogn ized section and content) DATE CREATED AUTHOR 08/27/2021 [facility] DATE CREATED AUTHOR AUTHOR'S ORGANIZ ATION 03/07/2023 [facility] DATE CREATED AUTHOR AUTHOR'S ORGANIZ ATION 06/23/2023 [facility] Care Teams (unrecognized sec tion and content) 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 Relationship Specialty Start Date End Date AcostaEmma mustafaCHAPITO [address] [address] PCP - General Family Medicine 06/05/13 Team Status: Active Member Role Status Dates JD Stone Primary Care Provider Active Team Status: Inactive Member Role Status Dates JD Stone Primary Care Provider Active JD Snowden Attending Provider Active 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 Relationship Specialty Start Date End Date Emma JewellCHAPITO [address] [id number] PCP - General Family Medicine 06/05/13 Team Status: Inactive Member Role Status Dates JD Stone Primary Care Provider Active Start: June 14, 2023 End: June 14, 2023 Carin Bajwa MD Attending Provider Active St art: June 14, 2023 End: June 14, 2023 Team Status: Inactive Member Role Status Dates JD Snowden Attending Provider Active Start: June 29, 2023 End: June 29, 2023 Team Status: Inactive Member Role Status Dates JD Stone Primary Care Provider Active Start: August 29, 2023 End: August 29, 2023 Dimitri Callahan MD Attending Provider Active Sta rt: August 29, 2023 End: August 29, 2023 Goals (unrecognized section and content) Goals may be documented in a n alternate sectionNo InformationNo InformationNo InformationGoals may be documented in an alternate section REASON FOR VISIT (unrecogniz ed section and content) referred by Hortencia tesfaye inal stenosis, lumbar regionPMFOLLOW UP LOW BACK FOR RECORDS PERTAINING TO PATIENTS WHO ARE OR HAVE BEEN ENROLLED IN A CHEMICAL DEPENDENCY/SUBSTANCEABUSE PROGRAM, SOME INFORMATION MAY BE OMITTED. This clinical summary was aggregated from multiple sources. Caution should be exercised in using it in the provision of clinical care. This summary normalizes information from multiple sources, and as a consequence, information in this document may materially change the coding, format and clinical context of patient data. In addition, data may be omitted in some cases. CLINICAL DECISIONS SHOULD BE BASED ON THE PRIMARY CLINICAL RECORDS. [facility]. provides no warranty or guarantee of the accuracy or completeness of information in this document.
[2024-01-03 15:52] LABS: Bilirubin Urine SMALL (NEGATIVE); Blood Urine TRACE-I (NEGATIVE); Clarity Urine CLEAR (CLEAR); Color Urine YELLOW (YELLOW); Glucose Urine UA NEGATIVE (NEGATIVE); Ketones Urine TRACE mg/dL (NEGATIVE); Leukocyte Esterase Urine NEGATIVE (NEGATIVE); Nitrite Urine NEGATIVE (NEGATIVE); Protein Urine 30 mg/dL (NEG/TRACE); Specific Gravity Urine >=1.030 (1.005-1.025)
[2024-01-03 15:53] LABS: Basophils Absolute Auto 0.1 10^3/uL (0.0-0.1); Basophils Percent Auto 0.9 % (0.2-2.0); Eosinophils Absolute Auto 0.3 10^3/uL (0.0-0.7); Eosinophils Percent Auto 2.2 % (0.9-7.0); Hematocrit 38.7 % (42.0-54.0); Hemoglobin 12.4 g/dL (14.0-18.0); Immature Granulocytes Abs Auto 0.06 10^3/uL (0.00-0.03); Immature Granulocytes Pct Auto 0.4 % (0.0-0.5); Lymphocytes Absolute Auto 1.6 10^3/uL (1.2-3.8); Lymphocytes Percent Auto 12.3 % (20.5-60.0); Mean Corpuscular Hemoglobin 27.4 pg (25.9-34.0); Mean Corpuscular Volume 85.6 fL (80.0-94.0); Mean Platelet Volume 10.5 fL (9.5-13.5); Monocytes Absolute Auto 0.7 10^3/uL (0.3-0.8); Monocytes Percent Auto 5.5 % (1.7-12.0); Neutrophils Absolute Auto 10.5 10^3/uL (1.4-6.5); Neutrophils Percent Auto 78.7 % (43.0-75.0); Platelet Count 255 10^3/uL (150-450); Red Blood Count 4.52 10^6/uL (4.70-6.10); Red Cell Distribution Width 14.3 % (11.0-15.0); White Blood Count 13.4 10^3/uL (4.0-11.0)
[2024-01-03 15:55] LABS: Urine Microscopic Indicated YES
[2024-01-03 15:59] LABS: Estimated Average Glucose 183 mg/dL
[2024-01-03 16:01] LABS: Bacteria Urine SMALL #/HPF (NONE SEEN); Mucus Urine LARGE (NONE SEEN); WBC Urine NONE SEEN #/HPF (NONE SEEN)
[2024-01-03 16:02] LABS: Cast Seen? NONE SEEN #/LPF (NONE SEEN); Crystals Seen? None Seen #/HPF (None Seen); Squamous Epithelial Cell Urine MODERATE #/LPF (NONE/RARE); Urine Culture Indicated YES
[2024-01-03 16:48] LABS: Prostate Specific Antigen Scrn 0.37 ng/mL (<=4.00)
[2024-01-03 16:49] LABS: Alanine Aminotransferase 45 U/L (16-63); Albumin Globulin Ratio 0.8; Albumin Level 3.4 g/dL (3.4-5.0); Alkaline Phosphatase 126 U/L (46-116); Anion Gap 11.6; Aspartate Amino Transferase 23 U/L (15-37); BUN Creatinine Ratio 8.2; Bilirubin Total 0.6 mg/dL (0.2-1.0); Calcium 9.3 mg/dL (8.5-10.1); Carbon Dioxide 30.2 mmol/L (21.0-32.0); Chloride 99 mmol/L (98-107); Chol HDL Ratio 6.2; Cholesterol 203 mg/dL (<=200); Estimated GFR (African America >60 (>=60); Estimated GFR (Non-African Ame >60 (>=60); Free T3 2.45 pg/mL (2.18-3.98); Globulin 4.1 g/dL; Glucose 187 mg/dL (74-106); HDL Cholesterol 33 mg/dL (40-60); Potassium 3.8 mmol/L (3.5-5.1); Sodium 137 mmol/L (136-145); Thyroid Stimulating Hormone 4.392 uIU/mL (0.358-3.740); Total Protein 7.5 g/dL (6.4-8.2); Triglycerides 517 mg/dL (<=150); Uric Acid 6.6 mg/dL (3.5-7.2); VLDL CHOLESTEROL 103.4 mg/dL
[2024-01-03 17:23] LABS: LDL Cholesterol Direct 92 mg/dL
== END 2024-01-03 15:15 | disposition home or self-care (01) ==
PROVIDERS: PCP Nurse Practitioner Family; Visit Provider Nurse Practitioner Family
DX: I10 Essential (primary) hypertension (principal)
CPT/HCPCS: 36415; 80053; 80061; 81001; 83036; 83525; 83721; 84436; 84443; 84481; 84550; 85025; 87086; G0103

== ENCOUNTER 2024-02-27 15:12 | Outpatient (OUT) | payer OTHER, SELFPAY ==
--- OUTSIDE RECORDS SUMMARY | 2024-02-08 15:50 | XMS_ITS | CCD ---
Author Organization [facility] CliniSyut Care Team Providers Care Compressor Engineer Name Role Phone DEAN, HORTENCIA Admitting Unavailable [...] Unavailable Best SARAVIA-Emma SHIELDS Primary Care Provider Eda PARSON, Lynsey Guerrero Attending Unavailable Eda PARSON, Lynsey Guerrero Attending Unavailable Eda PARSON, Lynsey Guerrero Attending Unavailable JD Palafox Primary Care Provider JD Holt Attending Provider Marina Holt Unavailable Hortencia Palafox Primary Care Unavailable Carin Bajwa Admitting Unavailable Carin Bajwa Attending Unavailable Marina Holt Admitting Unavailable Marina Holt Attending Unavailable Hortencia Palafox Primary Care Unavailable JD Palafox Primary Care Provider MD Carin Bajwa Attending Provider Allergies Allergy Classification Reported [...] 5-325 MG Oral for 30 Days Not-Taking/PRN [id number] 60 actuat albuterol 0.09 mg/actuat metered dose [...] PO August 29, 2023 12:00am FreeTextSig: (Prior Auth#:[id number]) Oral; Note: Source Status: Taking; Qty: 30 delayed release tablet; Provider: BRIDGETTE BURNETT amLODIPine Besyl ate 10 MG (Prior Auth#:[id number]) Oral for 30 Active atorvastatin 80 mg oral tablet (6 sources) HMG-CoA Reductase Inhibitor Start: 08-29-2023 Atorvastatin Active MG PO August 29, 2023 12:00am FreeTextSig: (Prior Auth#:[id number]) Oral; Note: Source Status: Taking; Qty: 30 delayed release tablet; Provider: BRIDGETTE BURNETT Start: 12-03-2013 take 1 tablet by haris th once daily atorvastatin (LIPITOR) 40 MG tablet Take 1 Tab by mouth daily. 30 Tab 6 12/03/2013 Active Atorvastatin Yemi cium 80 MG (Prior Auth#:[id number]) Oral for 30 Active betamethasone 0.0005 mg/mg / calcipotriene 0.44309 mg/mg topical ointment (2 sources) Corticosteroid, Vitamin [...] PO August 29, 2023 12:00am FreeTextSig: (Prior Auth#:[id number]) Oral; Note: Source Status: Taking; Qty: 30 cap; Provider: BRIDGETTE BURNETT DULoxetine HCl 6 0 MG (Prior Auth#:[id number]) Oral for 30 Active esomeprazole 40 mg [...] O August 29, 2023 12:00am FreeTextSig: (Prior Auth#:[id number]) Oral; Note: Source Status: Taking; Qty: 30 delayed release tablet; Provider: BRIDGETTE BURNETT Losartan Potassi um 100 MG (Prior Auth#:[id number]) Oral for 30 Active metoprolol tartrate 25 [...] 06-14-2023 ALT [Catalytic activity/Vol] 24 U/L 7-52 [facility] Albumin [Mass/volume] in Ser um or Plasma by Bromocresol green (BCG) dye binding methoOrdered By: Carin Bajwa on 06-14-2023 Albumin BCG dye [Mass/Vol] 4.5 g/dL 3.5-5.7 [facility] Alkaline phosphatase [Enzyma tic activity/volume] in Serum or PlasmaOrdered By: Carin Bajwa on 06-14-2023 ALP [Catalytic activity/Vol] 123 U/L 34-104 [facility] Aspartate aminotransferase [ Enzymatic activity/volume] in Serum or PlasmaOrdered By: Carin Bajwa on 06-14-2023 AST [Catalytic activity/Vol] 17 U/L 13-39 [facility] Basophils Auto (Bld) [#/Vol] Ordered By: Carin Bajwa on 06-14-2023 Basophils (Bld) [#/Vol] 0.2 10*3/uL 0.0-0.2 [facility] Basophils/100 WBC Auto (Bld) Ordered By: Carin Bajwa on 06-14-2023 Basophils/100 WBC (Bld) 1.3 % . [facility] Bilirubin.total [Mass/volume ] in Serum or PlasmaOrdered By: Carin Bajwa on 06-14-2023 Bilirubin [Mass/Vol] 0.4 mg/dL 0.3-1.0 [facility] C reactive protein [Mass/vol ume] in Serum or PlasmaOrdered By: Carin Bajwa on 06-14-2023 CRP [Mass/Vol] 3.6 mg/dL 0.0-0.5 [facility] C-Reactive Proteinon 023 C-Reactive Protein 3.6 mg/dL High 0.0-0.5 [facility] Comment on above: Result Comment: PERF ORMED BY: [facility] [address] [place] [address] PATHOLOGIST [employer] RAYNA CHINO M.D. Performed By: #### C MP, ESR, CRP, CBC #### [facility] [address] Calcium [Mass/volume] in Ser um or PlasmaOrdered By: Carin Bajwa on 06-14-2023 Calcium [Mass/Vol] 10.0 mg/dL 8.6-10.3 [facility] Carbon dioxide, total [Moles /volume] in Serum or PlasmaOrdered By: Carin Bajwa on 06-14-2023 CO2 [Moles/Vol] 28.8 mmol/L 21.0-31.0 [facility] Chloride [Moles/volume] in S stefanie or PlasmaOrdered By: Carin Bajwa on 06-14-2023 Chloride [Moles/Vol] 97 mmol/L 98-107 [facility] Complete Blood Count Auto Di ffon 06-14-2023 Basophils (Bld) [#/Vol] 0.2 10*3/uL Normal 0.0-0.2 [facility] Comment on above: Performed By: #### C MP, ESR, CRP, CBC #### [facility] [address] [place] [address] [place] Basophils/100 WBC (Bld) 1.3 % Normal . [facility] Comment on above: Performed By: #### C MP, ESR, CRP, CBC #### [facility] [address] [place] [address] [place] Eosinophils (Bld) [#/Vol] 0.3 10*3/uL Normal 0.0-0.45 [facility] Comment on above: Performed By: #### C MP, ESR, CRP, CBC #### [facility] [address] [place] [address] [place] Eosinophils/100 WBC (Bld) 1.7 % Normal . [facility] Comment on above: Performed By: #### C MP, ESR, CRP, CBC #### [facility] [address] Erythrocyte distribution width (RBC) [Ratio] 14.6 % Normal 12.0-14.8 [facility] Comment on above: Performed By: #### C MP, ESR, CRP, CBC #### [address] Hematocrit (Bld) [Volume fraction] 41.7 % Normal 38.8-50.0 [facility] Comment on above: Performed By: #### C MP, ESR, CRP, CBC #### [address] Hemoglobin (Bld) [Mass/Vol] 13.7 g/dL Normal 13.0-17.0 [facility] Comment on above: Performed By: #### C MP, ESR, CRP, CBC #### [address] Lymphocytes (Bld) [#/Vol] 1.7 10*3/uL Normal 1.00-4.8 [facility] Comment on above: Performed By: #### C MP, ESR, CRP, CBC #### [address] Lymphocytes/100 WBC (Bld) 11.0 % Normal . [facility] Comment on above: Performed By: #### C MP, ESR, CRP, CBC #### [address] MCH (RBC) [Entitic mass] 27.9 pg Normal 27.5-35.2 [facility] Comment on above: Performed By: #### C MP, ESR, CRP, CBC #### [address] MCV (RBC) [Entitic vol] 84.8 fL Normal 83.5-101 [facility] Comment on above: Performed By: #### C MP, ESR, CRP, CBC #### [address] Mean Corpuscular HGB Conc 32.9 g/dL Normal 32.5-35.6 [facility] Comment on above: Performed By: #### C MP, ESR, CRP, CBC #### [address] Monocytes (Bld) [#/Vol] 0.9 10*3/uL High 0.0-0.8 [facility] Comment on above: Performed By: #### C MP, ESR, CRP, CBC #### [facility] [address] Monocytes/100 WBC (Bld) 5.8 % Normal . [facility] Comment on above: Performed By: #### C MP, ESR, CRP, CBC #### [facility] [address] Neutrophils (Bld) [#/Vol] 12.1 10*3/uL High 1.8-7.7 [facility] Comment on above: Performed By: #### C MP, ESR, CRP, CBC #### [facility] [address] Neutrophils/100 WBC (Bld) 80.2 % Normal . [facility] Comment on above: Performed By: #### C MP, ESR, CRP, CBC #### [facility] [address] NRBC% 0.1 /100{WBC} Normal 0-0.5 [facility] Comment on above: Performed By: #### C MP, ESR, CRP, CBC #### [facility] [address] Platelet mean volume (Bld) [Entitic vol] 8.9 fL Normal 6.6-10.1 [facility] Comment on above: Performed By: #### C MP, ESR, CRP, CBC #### [facility] [address] [place] [address] [place] Platelets (Bld) [#/Vol] 328 10*3/uL Normal 150-450 [facility] Comment on above: Performed By: #### C MP, ESR, CRP, CBC #### [facility] [address] [place] [address] [place] RBC (Bld) [#/Vol] 4.92 10*6/uL Normal 3.90-5.60 [facility] Comment on above: Performed By: #### C MP, ESR, CRP, CBC #### [facility] [address] [place] [address] WBC (Bld) [#/Vol] 15.1 10*3/uL High 4.1-10.5 [facility] Comment on above: Performed By: #### C MP, ESR, CRP, CBC #### [address] Comprehensive Metabolic Pane [place] 06-14-2023 Albumin [Mass/Vol] 4.5 g/dL Normal 3.5-5.7 [facility] Comment on above: Performed By: #### C MP, ESR, CRP, CBC #### [address] Albumin/Globulin [Mass ratio] 1.6 {ratio} Normal [facility] Comment on above: Performed By: #### C MP, ESR, CRP, CBC #### [address] ALP [Catalytic activity/Vol] 123 U/L High 34-104 [facility] Comment on above: Performed By: #### C MP, ESR, CRP, CBC #### [address] ALT [Catalytic activity/Vol] 24 U/L Normal 7-52 [facility] Comment on above: Performed By: #### C MP, ESR, CRP, CBC #### [address] Anion gap [Moles/Vol] 16.4 mmol/L High 6.0-15.0 [facility] Comment on above: Performed By: #### C MP, ESR, CRP, CBC #### [address] AST [Catalytic activity/Vol] 17 U/L Normal 13-39 [facility] Comment on above: Performed By: #### C MP, ESR, CRP, CBC #### [address] Bilirubin [Mass/Vol] 0.4 mg/dL Normal 0.3-1.0 [facility] Comment on above: Performed By: #### C MP, ESR, CRP, CBC #### [address] Calcium [Mass/Vol] 10.0 mg/dL Normal 8.6-10.3 [facility] Comment on above: Performed By: #### C MP, ESR, CRP, CBC #### [address] Chloride [Moles/Vol] 97 mmol/L Low 98-107 [facility] Comment on above: Performed By: #### C MP, ESR, CRP, CBC #### [address] CO2 [Moles/Vol] 28.8 mmol/L Normal 21.0-31.0 [facility] Comment on above: Performed By: #### C MP, ESR, CRP, CBC #### [address] Creatinine [Mass/Vol] 0.65 mg/dL Low 0.70-1.30 [facility] Comment on above: Performed By: #### C MP, ESR, CRP, CBC #### [address] GFR/1.73 sq M.predicted MDRD (S/P/Bld) [Vol rate/Area] mL/min/{1.73_m2} [facility] Comment on above: Performed By: #### C MP, ESR, CRP, CBC #### [address] Globulin (S) [Mass/Vol] 2.9 g/dL Normal [facility] Comment on above: Performed By: #### C MP, ESR, CRP, CBC #### [address] Glucose [Mass/Vol] 134 mg/dL High 70-100 [facility] Comment on above: Result Comment: [facility] Glucose Reference Range is dependent on time and content of last meal. Glucose of more than 200 mg/dL in a nonstressed, ambulatory subject supports the diagnosis of Diabetes Mellitus. ADA recommended reference range Performed By: #### C MP, ESR, CRP, CBC #### [facility] [address] Potassium [Moles/Vol] 4.2 mmol/L Normal 3.5-5.1 [facility] Comment on above: Performed By: #### C MP, ESR, CRP, CBC #### [facility] [address] Protein [Mass/Vol] 7.4 g/dL Normal 6.4-8.9 [facility] Comment on above: Performed By: #### C MP, ESR, CRP, CBC #### [facility] [address] Sodium [Moles/Vol] 138 mmol/L Normal 136-145 [facility] Comment on above: Performed By: #### C MP, ESR, CRP, CBC #### [facility] [address] [place] [address] [place] Urea nitrogen [Mass/Vol] 10 mg/dL Normal 7-25 [facility] Comment on above: Performed By: #### C MP, ESR, CRP, CBC #### [facility] [address] [place] [address] [place] Creatinine [Mass/volume] in Serum or PlasmaOrdered By: Carin Bajwa on 06-14-2023 Creatinine [Mass/Vol] 0.65 mg/dL 0.70-1.30 [facility] Eosinophils Auto (Bld) [#/Vo l]Ordered By: Carin Bajwa on 06-14-2023 Eosinophils (Bld) [#/Vol] 0.3 10*3/uL 0.0-0.45 [facility] Eosinophils/100 WBC Auto (Bl d)Ordered By: Carin Bajwa on 06-14-2023 Eosinophils/100 WBC (Bld) 1.7 % . [facility] Erythrocyte Sedimentation Ra yvrose 06-14-2023 ESR (Bld) [Velocity] 60 mm/h High 0-14 [facility] Comment on above: Result Comment: PERF ORMED BY: [facility] [address] [place] [address] PATHOLOGIST [employer] RAYNA CHINO M.D. Performed By: #### C MP, ESR, CRP, CBC #### [facility] [address] Erythrocyte distribution wid th Auto (RBC) [Ratio]Ordered By: Carin Bajwa on 06-14-2023 Erythrocyte distribution width (RBC) [Ratio] 14.6 % 12.0-14.8 [facility] Erythrocyte sedimentation ra te by Photometric methodOrdered By: Carin Bajwa on 06-14-2023 ESR Photometric method (Bld) [Velocity] 60 mm/hr 0-14 [facility] Globulin Calc (S) [Mass/Vol] Ordered By: Carin Bajwa on 06-14-2023 Globulin (S) [Mass/Vol] 2.9 g/dL [facility] Glucose [Mass/volume] in Ser um or PlasmaOrdered By: Carin Bajwa on 06-14-2023 Glucose [Mass/Vol] 134 mg/dL 70-100 [facility] Comment on above: ADA recommended refe rence rangeRandom Glucose Reference Range is dependent on time and content of last meal. Glucose of more than 200 mg/dL in a nonstressed, ambulatory subject supports the diagnosis of Diabetes Mellitus. Hematocrit Auto (Bld) [Volum e fraction]Ordered By: Carin Bajwa on 06-14-2023 Hematocrit (Bld) [Volume fraction] 41.7 % 38.8-50.0 [facility] Hemoglobin [Mass/volume] in BloodOrdered By: Carin Bajwa on 06-14-2023 Hemoglobin (Bld) [Mass/Vol] 13.7 g/dL 13.0-17.0 [facility] Leukocytes [#/volume] correc victoria for nucleated erythrocytes in Blood by Automated counOrdered By: Carin Bajwa on 06-14-2023 WBC corrected for nucl RBC Auto (Bld) [#/Vol] 15.1 10*3/uL 4.1-10.5 [facility] Lymphocytes Auto (Bld) [#/Vo l]Ordered By: Carin Bajwa on 06-14-2023 Lymphocytes (Bld) [#/Vol] 1.7 10*3/uL 1.00-4.8 [facility] Lymphocytes/100 WBC Auto (Bl d)Ordered By: Carin Bajwa on 06-14-2023 Lymphocytes/100 WBC (Bld) 11.0 % . [facility] MCH Auto (RBC) [Entitic mass ]Ordered By: Carin Bajwa on 06-14-2023 MCH (RBC) [Entitic mass] 27.9 pg 27.5-35.2 [facility] MCHC Auto (RBC) [Mass/Vol]Or dered By: Carin Bajwa on 06-14-2023 MCHC (RBC) [Mass/Vol] 32.9 g/dL 32.5-35.[address] [facility] MCV Auto (RBC) [Entitic vol] Ordered By: Carin Bajwa on 06-14-2023 MCV (RBC) [Entitic vol] 84.8 fL 83.5-101 [facility] Monocytes Auto (Bld) [#/Vol] Ordered By: Carin Bajwa on 06-14-2023 Monocytes (Bld) [#/Vol] 0.9 10*3/uL 0.0-0.8 [facility] Monocytes/100 WBC Auto (Bld) Ordered By: Carin Bajwa on 06-14-2023 Monocytes/100 WBC (Bld) 5.8 % . [facility] Neutrophils Auto (Bld) [#/Vo l]Ordered By: Carin Bajwa on 06-14-2023 Neutrophils (Bld) [#/Vol] 12.1 10*3/uL 1.8-7.7 [facility] Neutrophils/100 WBC Auto (Bl d)Ordered By: Carin Bajwa on 06-14-2023 Neutrophils/100 WBC (Bld) 80.2 % . [facility] No Panel InformationOrdered By: Carin Bajwa on 06-14-2023 Estimated GFR (CKD-EPI) > 60.0 mL/Min [facility] Creatinine Clearance (Chem N/A [facility] Nucleated erythrocytes [Pres ence] in Blood by Automated countOrdered By: Carin Bajwa on 06-14-2023 Nucleated RBC Auto Ql (Bld) 0.1 /100{WBC} 0-0.5 [facility] Platelet mean volume Auto (B ld) [Entitic vol]Ordered By: Carin Bajwa on 06-14-2023 Platelet mean volume (Bld) [Entitic vol] 8.9 fL 6.6-10.1 [facility] Platelets Auto (Bld) [#/Vol] Ordered By: Carin Bajwa on 06-14-2023 Platelets (Bld) [#/Vol] 328 10*3/uL 150-450 [facility] Potassium [Moles/volume] in Serum or PlasmaOrdered By: Carin Bajwa on 06-14-2023 Potassium [Moles/Vol] 4.2 mmol/L 3.5-5.1 [facility] Protein [Mass/volume] in Ser um or PlasmaOrdered By: Carin Bajwa on 06-14-2023 Protein [Mass/Vol] 7.4 g/dL 6.4-8.9 [facility] RBC Auto (Bld) [#/Vol]Ordere d By: Carin Bajwa on 06-14-2023 RBC (Bld) [#/Vol] 4.92 10*6/uL 3.90-5.60 [facility] Serum or plasma albumin/glob ulin mass ratioOrdered By: Carin Bajwa on 06-14-2023 Albumin/Globulin [Mass ratio] 1.6 {ratio} [facility] Serum or plasma anion gap de terminationOrdered By: Carin Bajwa on 06-14-2023 Anion gap [Moles/Vol] 16.4 mmol/L 6.0-15.0 [facility] Sodium [Moles/volume] in Ser um or PlasmaOrdered By: Carin Bajwa on 06-14-2023 Sodium [Moles/Vol] 138 mmol/L 136-145 [facility] Urea nitrogen [Mass/volume] in Serum or PlasmaOrdered By: Carin Bajwa on 06-14-2023 Urea nitrogen [Mass/Vol] 10 mg/dL 7-25 [facility] WBC Auto (Bld) [#/Vol]Ordere d By: Carin Bienvenidomio on 06-14-2023 WBC (Bld) [#/Vol] 15.1 10*3/uL 4.1-10.5 [facility] XR lumbar spine 6V w bending on 03-14-2023 XR lumbar spine 6[place] [address] XRay Report Signed Patient: Lexa Bashir MR#: [id number] 40 : 1980 Acct:[id number] Age/Sex: 42 / M ADM Date: 03/14/23 Loc: XD Room: Type: [facility] Attending Dr: Marina MILES Copies to: DJ Hooker Ordering Provider: JD Hooker Date of [...] Bronwyn Martinez Jr.OAnjel03/14/2023 3:43 PM Dictation Location: [place] [address] Transcribed By: [facility] 03/14/23 1543 Dictated By: Lexa Hooks Jr, DO 03/14/23 1541 Signed By: 03/14/23 1543 Normal [facility] XR lumbar spine 6V w bending [facility] [employer] Other XR lumbar spine 6V w bending [facility] [employer] Other XR lumbar spine 6V w bending [address] [place] [address] [employer] Other XR lumbar spine 6V w bending [address] [employer] Other XR lumbar spine 6V w bending XRay Report [employer] Other XR lumbar spine 6V w bending Signed [employer] Other XR lumbar spine 6V w bending Patient: Lexa Bashir MR#: [id number] [employer] Other XR lumbar spine 6V w bending 40 [employer] Other XR lumbar spine 6V w bending : 1980 Acct:[id number] [employer] Other XR lumbar spine 6V w bending Age/Sex: 42 / M ADM Date: 03/14/23 [employer] Other XR lumbar spine 6V w bending Loc: XD Room: Type: [facility] [employer] Other XR lumbar spine 6V w bending Attending Dr: Marina MILES [employer] Other XR lumbar spine 6V w bending Copies to: JD Hooker [employer] Other XR lumbar spine 6V w bending Ordering Provider: JD Hooker [employer] Other XR lumbar spine 6V w bending Date of Service: 03/14/23 [employer] Other XR lumbar spine 6V w bending XR/XR lumbar spine 6V w bending: M54.50 [employer] Other XR lumbar spine 6V w bending LUMBAR SPINE - 7 views [employer] Other XR lumbar spine 6V w bending CLINICAL HISTORY: Low back pain down left leg for 3 months. [employer] Other XR lumbar spine 6V w bending COMPARISON: Lumbar spine 01/12/2021 [employer] Other XR lumbar spine 6V w bending maintained. No pathological motion on flexion or extension views. SI joints appear unremarkable. [employer] Other XR lumbar spine 6V w bending XR/XR lumbar spine 6V w bending [employer] Other XR lumbar spine 6V w bending IMPRESSION: [employer] Other XR lumbar spine 6V w bending NO ACUTE BONY PROCESS OR SIGNIFICANT DEGENERATIVE CHANGE. [employer] Other XR lumbar spine 6V w bending Impression dictated by: Lexa Hooks Jr., D.O.03/14/2023 3:43 PM [employer] Other XR lumbar spine 6V w bending Dictation Location: RADIO-PC-14 [employer] Other XR lumbar spine 6V w bending Transcribed By: PWS 03/14/23 [facility] [employer] Other XR lumbar spine 6V w bending Dictated By: Lexa Hooks Jr DO 03/14/23 [facility] [employer] Other XR lumbar spine 6V w bending Signed By: [employer] Other XR lumbar spine 6V w bending 03/14/23 [facility] [employer] Other QUANTIFERON TB GOLD PLUS (NO N-INC)on 03-02-2021 Comment Incubation performed. Normal [facility] Comment on above: Performed By: #### Q NTTBG #### [facility] [address] [place] [address] Tiffanie Steward Criteria Comment Normal [facility] Comment on above: Result Comment: The QuantiFERON-TB Gold Plus result is determined by subtracting the Nil value from either TB antigen (Ag) tube. The mitogen tube serves as a control for the test. Performed By: #### Q NTTBG #### [facility] [address] [place] [address] Tiffanie Nichelle Mitogen Value >10.00 Normal [facility] Comment on above: Performed By: #### Q NTTBG #### [facility] [address] [place] [address] Tiffanie Nichelle Nill Value 0.13 IU/mL Normal [facility] Comment on above: Performed By: #### Q NTTBG #### [facility] [address] [id number] Tiffanie Steward Quantiferon Gold Plus Negative Normal Negative [facility] Comment on above: Result Comment: Chem iluminescence immunoassay methodology Performed By: #### Q NTTBG #### [facility] [address] [place] [address] Tiffanie Steward TB1 Ag Value 0.12 IU/mL Normal [facility] Comment on above: Performed By: #### Q NTTBG #### [facility] [address] [place] [address] Tiffanie Steward TB2 Ag Value 0.18 IU/mL Normal [facility] Comment on above: Performed By: #### Q NTTBG #### [facility] [address] [place], [place] [id number] Tiffanie Steward TESTOSTERONE, TOTALon 2020 Testosterone [Mass/Vol] 193 ng/dL Critically low 264-916 [facility] Comment on above: Result Comment: Adul t male reference interval is based on a population of healthy nonobese males (BMI <30) between 19 and 39 years old. melony [email or web address].al. JCEM 2017,102;5716-4223. PMID: [id number]. Please note reference interval change Performed By: #### T ESTTOT #### [facility] [address] [place], [place] [id number] Tiffanie Steward FREE THYROXINE INDEX T7on FTI 2.02 Normal [facility] Comment on above: Performed By: #### T 7, TSH #### [facility] [address] [place], [place] [id number] Tiffanie Steward T3U 36.0 % Normal 23.5-40.5 [facility] Comment on above: Performed By: #### T 7, TSH #### [facility] [address] [place] [id number] Tiffanie Steward T4 [Mass/Vol] 5.60 ug/dL Normal 5.53-11.00 [facility] Comment on above: Performed By: #### T 7, TSH #### [facility] [address] [place], [place] [id number] Tiffanie Steward TSHon 12-10-2020 TSH 3.123 uIU/mL Normal 0.470-4.680 [facility] Comment on above: Performed By: #### T 7, TSH #### [facility] [address] [place] [address] Tiffanie Steward TSH RANGE SEE BELOW Normal [facility] Comment on above: Result Comment: <0.3 4 UIU/ml HYPERTHYROID 0.34-5.60 UIU/ml EUTHYROID >5.60 UIU/ml HYPOTHYROID Performed By: #### T 7, TSH #### [facility] [address] [place] [address] Tiffanie Steward INSULINon 11-30-2020 Insulin 80.0 uIU/mL Critically high 2.6-24.9 [facility] [place] Comment on above: Performed By: #### I NSULIN #### [facility] [address] [place] [address] Tiffanie Nichelle CBC AUTO DIFFon 11-28-2020 BASO # 0.1 103/ul Normal 0.0-0.1 [facility] Comment on above: Performed By: #### C BC #### [facility] [address] [place] [address] Tiffanie Nichelle Basophils/100 WBC (Bld) 0.7 % Normal 0.2-2.0 [facility] Comment on above: Performed By: #### C BC #### [facility] [address] [place] [address] Tiffanie Nichelle EO # 0.2 103/ul Normal 0.0-0.7 [facility] Comment on above: Performed By: #### C BC #### [facility] [facility] [address] [place] [address] Tiffanie Nichelle Eosinophils/100 WBC (Bld) 1.8 % Normal 0.9-7.0 [facility] Comment on above: Performed By: #### C BC #### [facility] [address] [place], [place] [id number] Tiffanie Nichelle Erythrocyte distribution width (RBC) [Ratio] 13.3 % Normal 11.0-15.0 [facility] Comment on above: Performed By: #### C BC #### [facility] [address] [place], [place] [address] Tiffanie Nichelle Hematocrit (Bld) [Volume fraction] 44.2 % Normal 42.0-54.0 [facility] Comment on above: Performed By: #### C BC #### [facility] [address] [place] [address] Tiffanie Nichelle Hemoglobin (Bld) [Mass/Vol] 14.4 g/dL Normal 14.0-18.0 [facility] Comment on above: Performed By: #### C BC #### [facility] [address] [place] [address] Tiffanie Nichelle IG # 0.05 10e3/ul Critically high 0.00-0.03 [facility] Comment on above: Performed By: #### C BC #### [facility] [address] [place] [address] Tiffanie Nichelle IG % 0.4 % Normal 0.0-0.5 [facility] Comment on above: Performed By: #### C BC #### [facility] [address] [place] [address] Tiffanie Nichelle LYMPH # 1.7 103/ul Normal 1.2-3.8 [facility] Comment on above: Performed By: #### C BC #### [facility] [address] [place], [place] [address] Tiffanie Nichelle Lymphocytes/100 WBC (Bld) 14.4 % Critically low 20.5-60.0 [facility] Comment on above: Performed By: #### C BC #### [facility] [address] [place], [place] [address] Tiffanie Nichelle MANUAL DIFF REQ NO Normal [facility] Comment on above: Performed By: #### C BC #### [facility] [address] [place], [place] [address] Tiffanie Nichelle MCH (RBC) [Entitic mass] 28.5 pg Normal 25.9-34.0 [facility] Comment on above: Performed By: #### C BC #### [facility] [address] [place] [address] Tiffanie Steward MCHC (RBC) [Mass/Vol] 32.6 g/dL Normal 29.9-35.2 [facility] Comment on above: Performed By: #### C BC #### [facility] [address] [place] [address] Tiffanie Steward MCV (RBC) [Entitic vol] 87.5 fL Normal 80.0-94.0 [facility] Comment on above: Performed By: #### C BC #### [facility] [address] [place] [address] Tiffanie Steward MONO # 0.7 103/ul Normal 0.3-0.8 [facility] Comment on above: Performed By: #### C BC #### [facility] [address] [place] [address] Tiffanie Steward Monocytes/100 WBC (Bld) 6.1 % Normal 1.7-12.0 [facility] Comment on above: Performed By: #### C BC #### [facility] [address] [place] [address] Tiffanie Steward NEUT # 9.0 103/ul Critically high 1.4-6.5 [facility] Comment on above: Performed By: #### C BC #### [facility] [address] [place] [address] Tiffanie Steward Neutrophils/100 WBC (Bld) 76.6 % Critically high 43.0-75.0 [facility] Comment on above: Performed By: #### C BC #### [facility] [address] [place], [place] [address] Tiffanie Steward Platelet mean volume (Bld) [Entitic vol] 10.4 fL Normal 9.5-13.5 [facility] Comment on above: Performed By: #### C BC #### [facility] [address] [place] [address] Tiffanie Nichelle PLT 311 103/ul Normal 150-450 [facility] Comment on above: Performed By: #### C BC #### [facility] [address] [id number] Tiffanie Steward RBC 5.05 106/ul Normal 4.70-6.10 [facility] Comment on above: Performed By: #### C BC #### [facility] [address] [id number] Tiffanie Steward WBC 11.8 103/ul Critically high 4.0-11.0 [facility] Comment on above: Performed By: #### C BC #### [facility] [address] [id number] Tiffanie Steward GLYCOHEMOGLOBIN A1Con 2020 ADA RECOMMENDATION ADA THERAPEUTIC TARGET 6.0 - 7.0 ACTION SUGGESTED > 7.0 Normal [facility] Comment on above: Performed By: #### A 1C #### [facility] [address] [place] [address] Tiffanie Steward Glucose [Mass/Vol] 105 mg/dL Normal [facility] Comment on above: Performed By: #### A 1C #### [facility] [address] [id number] Tiffanie Steward HbA1c (Bld) [Mass fraction] 5.3 % Normal <=6.0 [facility] Comment on above: Performed By: #### A 1C #### [facility] [address] [place], [place] [address] Tiffanie Steward LIPID PROFILEon 11-28-2020 CHOL-HDL RATIO NORM SEE BELOW Normal [facility] Comment on above: Result Comment: 3.3 - 4.4 LOW RISK 4.4 - 7.1 AVERAGE RISK 7.1 - 11.0 MODERATE RISK >11.0 HIGH RISK Performed By: #### C MP, LIPID #### [facility] [address] [place], [place] [address] Tiffanie Steward Cholesterol [Mass/Vol] 231 mg/dL Critically high <=200 [facility] Comment on above: Performed By: #### C MP, LIPID #### [facility] [address] [place], [place] [address] Tiffanie Nichelle Cholesterol in HDL [Mass/Vol] 40 mg/dL Normal [facility] Comment on above: Performed By: #### C MP, LIPID #### [facility] [address] [place], [place] [address] Tiffanie Nichelle Cholesterol in LDL [Mass/Vol] 123.0 mg/dL Normal [facility] Comment on above: Performed By: #### C MP, LIPID #### [facility] [address] [place], [place] [address] Tiffanie Nichelle Cholesterol.total/Aleida sterol in HDL [Mass ratio] 5.8 {ratio} Normal [facility] Comment on above: Performed By: #### C MP, LIPID #### [facility] [address] [place] [address] Tiffanie Nichelle HDL NORMAL > or = 60 mg/dl - LOW CARDIOVASCULAR RISK <40 mg/dl - HIGH CARDIOVASCULAR RISK Normal [facility] Comment on above: Performed By: #### C MP, LIPID #### [facility] [address] [place], [place] [address] Tiffanie Nichelle LDL CALC NORMAL SEE BELOW Normal [facility] Comment on above: Result Comment: <100 mg/dl OPTIMAL 100 - 129 mg/dl NEAR OR ABOVE OPTIMAL 130 - 159 mg/dl BORDERLINE HIGH 160 - 189 mg/dl HIGH >190 mg/dl VERY HIGH Performed By: #### C MP, LIPID #### [facility] [address] [place], [place] [address] Tiffanie Nichelle Triglyceride [Mass/Vol] 340 mg/dL Critically high <=150 [facility] Comment on above: Performed By: #### C MP, LIPID #### [facility] [address] [place], [place] [address] Tiffanie Nichelle VLDL CALC 68.0 mg/dL Normal [facility] Comment on above: Performed By: #### C MP, LIPID #### [facility] [address], [place] [address] Tiffanie Nichelel PROF 14(COMP METB)on 021 Albumin [Mass/Vol] 3.8 g/dL Normal 3.5-5.0 [facility] Comment on above: Performed By: #### C MP, LIPID #### [facility] [address], [place] [address] Tiffanie Nichelle Albumin/Globulin [Mass ratio] 0.8 {ratio} Normal [facility] Comment on above: Performed By: #### C MP, LIPID #### [facility] [address] [id number] Tiffanie Nichelle ALP [Catalytic activity/Vol] 136 U/L Critically high 38-126 [facility] Comment on above: Performed By: #### C MP, LIPID #### [facility] [address] [id number] Tiffanie Nichelle ALT [Catalytic activity/Vol] 43 U/L Normal 21-72 [facility] Comment on above: Performed By: #### C MP, LIPID #### [facility] [address] [place], [place] [address] Tiffanie Nichelle Anion gap [Moles/Vol] 13.0 mmol/L Normal [facility] Comment on above: Performed By: #### C MP, LIPID #### [facility] [address] [place], [place] [address] Tiffanie Nichelle AST [Catalytic activity/Vol] 21 U/L Normal 17-59 [facility] Comment on above: Performed By: #### C MP, LIPID #### [facility] [address] [place], [place] [address] Tiffanie Nichelle Bilirubin [Mass/Vol] 0.4 mg/dL Normal 0.2-1.3 [facility] Comment on above: Performed By: #### C MP, LIPID #### [facility] [address] [id number] Tiffanie Nichelle Calcium [Mass/Vol] 9.6 mg/dL Normal 8.4-10.2 [facility] Comment on above: Performed By: #### C MP, LIPID #### [facility] [address] [id number] Tiffanie Nichelle Chloride [Moles/Vol] 101 mmol/L Normal 98-107 [facility] Comment on above: Performed By: #### C MP, LIPID #### [facility] [address] [id number] Tiffanie Nichelle CO2 [Moles/Vol] 27.6 mmol/L Normal 22.0-30.0 [facility] Comment on above: Performed By: #### C MP, LIPID #### [facility] [address] [id number] Tiffanie Nichelle Creatinine [Mass/Vol] 0.90 mg/dL Normal 0.66-1.25 [facility] Comment on above: Performed By: #### C MP, LIPID #### [facility] [address] [id number] Tiffanie Nichelle EGFR-AF [place]OU[place]ORE[place] >60 Normal >=60 [facility] Comment on above: Performed By: #### C MP, LIPID #### [facility] [address] [place] [address] Tiffanie Nichelle EGFR-NON AF [place]ORE[place] >60 Normal >=60 [facility] Comment on above: Performed By: #### C MP, LIPID #### [facility] [address] [place], [place] [address] Tiffanie Nichelle Globulin (S) [Mass/Vol] 4.7 g/dL Normal [facility] Comment on above: Performed By: #### C MP, LIPID #### [facility] [address] [place] [address] Tiffanie Nichelle Glucose [Mass/Vol] 117 mg/dL Critically high 74-106 [facility] Comment on above: Performed By: #### C MP, LIPID #### [facility] [address] [place] [address] Tiffanie Nichelle Potassium [Moles/Vol] 3.6 mmol/L Normal 3.4-5.0 [facility] Comment on above: Performed By: #### C MP, LIPID #### [facility] [address] [place], [place] [address] Tiffanie Nichelle Protein [Mass/Vol] 8.5 g/dL Critically high 6.1-8.2 [facility] Comment on above: Performed By: #### C MP, LIPID #### [facility] [address] [place], [place] [address] Tiffanie Nichelle Sodium [Moles/Vol] 138 mmol/L Normal 137-145 [facility] Comment on above: Performed By: #### C MP, LIPID #### [facility] [address] [place], [place] [address] Tiffanie Nichelle Urea nitrogen [Mass/Vol] 7.0 mg/dL Critically low 9.0-20.0 [facility] Comment on above: Performed By: #### C MP, LIPID #### [facility] [address] [place], [place] [address] Tiffanie Nichelle Urea nitrogen/Creatinine [Mass ratio] 7.8 mg/mg Normal [facility] Comment on above: Performed By: #### C MP, LIPID #### [facility] [address] [place], [place] [address] Tiffanie Nichelle Vital Signs Date Time Vital Sign Value Performing Clinician Facility 08-29-2023 09:42-0500 Body height 170.18 cm KITCHEN HELPER-Aki Palafox Work Phone: [facility] 08-29-2023 09:42-0500 Body mass index (BMI) [Ratio] 66.1 kg/m2 KITCHEN HELPER-Aki Palafox Work Phone: [facility] 08-29-2023 09:42-0500 Body weight 191.41 kg KITCHEN HELPER-Aki Palafox Work Phone: [facility] 08-29-2023 09:42-0500 Heart rate 114 /min KITCHEN HELPER-Aki Palafox Work Phone: [facility] 08-29-2023 09:42-0500 SaO2% (BldA) [Mass fraction] 98 % KITCHEN HELPER-Aki Palafox Work Phone: [facility] 06-29-2023 14:00-0500 Body height 170.18 cm Marina Holt Other [facility] 06-29-2023 14:00-0500 Body mass index (BMI) [Ratio] 64.05 kg/m2 Marina Holt Other [employer] Other 06-29-2023 14:00-0500 Body weight 185.52 kg Marina Holt Other [employer] Other 06-29-2023 14:00-0500 Body weight 185.51 kg KITCHEN HELPER-C Hortencia Palafox Work Phone: [facility] 06-29-2023 14:00-0500 Respiratory rate 18 /min Marina Holt Other [employer] Other 06-29-2023 14:00-0500 SaO2% (BldA) [Mass fraction] 92 % Marina Holt Other [employer] Other 03-14-2023 13:00-0400 Body height 170.18 cm Marina Holt Other [employer] Other 03-14-2023 13:00-0400 Body mass index (BMI) [Ratio] 58.57 kg/m2 MarinaEmprego Ligado Other [employer] Other 03-14-2023 13:00-0400 Body weight 169.65 kg Marina Holt Other [employer] Other Encounters Encounter Date Encounter Type Care Provider Facility Start: 08-29-2023 End: 08-29-2023 ambulatory KITCHEN HELPER-C Hortencia Palafox Work Phone: [facility] Work Phone: Start: 08-29-2023 End: 08-29-2023 Patient encounter procedure KITCHEN HELPER-C Hortencia Palafox Work Phone: [facility] Work Phone: Start: 06-29-2023 End: 06-29-2023 ambulatory Marina Holt Other [employer] Other Start: 06-29-2023 Office outpatient vi sit 25 minutes Marina Holt [facility] Start: 06-29-2023 End: 06-29-2023 Patient encounter procedure KITCHEN HELPER-C Hortencia Bridgette Work Phone: [facility] Work Phone: Start: 06-25-2023 Letter encounter Emma Jewell QUIRK SANDER-COW TESTER [facility] Start: 06-14-2023 End: 06-14-2023 ambulatory Hortencia Palafox Facility:[facility] Start: 06-14-2023 End: 06-14-2023 Patient encounter procedure KITCHEN HELPER-C Hortencia Bridgette Work Phone: [facility] [address] Work Phone: Start: 03-30-2023 End: 03-30-2023 ambulatory Marina Holt Other [facility] [employer] Other Start: 03-30-2023 Telephone encounter Marina Holt [facility] Start: 03-14-2023 End: 03-14-2023 Patient encounter procedure KITCHEN HELPER-C Hortencia Bridgette Work Phone: [facility] Work Phone: Start: 03-14-2023 End: 03-14-2023 ambulatory KITCHEN HELPER-C Hortencia Jennifer Bridgette Work Phone: [facility] Work Phone: Start: 03-14-2023 Office outpatient ne w 45 minutes Marina Holt [facility] Start: 02-13-2023 End: 02-14-2023 ambulatory Lynsey Veras MD Facility:[facility] Start: 01-30-2023 End: 01-31-2023 ambulatory Lynsey Veras MD Facility:[facility] Start: 01-16-2023 End: 01-17-2023 ambulatory Lynsey Veras MD Facility:[facility] Start: 09-27-2022 Letter encounter Emma Jewell QUIRK SANDER-COW TESTER Work Phone: [facility] Start: 08-26-[address] CARIN BAJWA Facil ity:[facility] Start: 03-19-2021 ambulatory HORTENCIA MORAN Facility:[facility] Start: 02-25-2021 End: 02-26-[address] CARIN BAJWA Facility:[facility] Start: 12-18-2020 Encounter for genera l adult medical examination without abnormal findings HORTENCIA MORAN [facility] Start: 12-10-2020 End: 12-11-2020 ambulatory HORTENCIA MORAN Facility:[facility] Start: 12-10-2020 End: 12-11-2020 Encounter for general adult medical examination without abnormal findings HORTENCIA MORAN Facility:[facility] Start: 11-28-2020 End: 11-29-2020 ambulatory HORTENCIA MORAN Facility:[facility] Start: 08-29-2020 ambulatory HORTENCIA MORAN Facility:[facility] Procedures Date Procedure Procedure Detail Performing Clinician Start: 03-14-2023 X-ray of lumbar spin e, six views including bending views KITCHEN HELPER-C Hortencia Palfaox Work Phone: Plan of Treatment Date Care [...] [facility] Payers Date Payer Category Payer Medicaid [id number] 2023 Self-pay [id number] 2013 Unknown [id number] 1979 Unknown [id number] 2.16.84 [id number] 1979 Unknown [id number] 2.16.84 [id number] 1979 Unknown [id number] 2.16.84 [id number] 1979 Unknown [id number] 2.16.84 [id number] 1979 Unknown [id number] 2.16.84 [id number] 1979 Unknown [id number] 2.16.84 [id number] 1979 Unknown [id number] 2.16. [id number] 1979 Unknown [id number] 2.16. [id number] 1979 Unknown [id number] 2.16. [id number] 1959 Self-pay [id number] 1959 Unknown [id number] Unknown [id number] 2.16.8 [id number] Unknown [id number] 2.16.8 [id number] Social History Date Type Detail Facility Start: 04-23-2013 Tobacco smoking stat [facility] Never smoked tobacco [facility] Start: 08-31-2021 Alcohol intake Current drinke r of alcohol (finding) [facility] Start: 04-23-2013 Alcohol Comment 6-10 BEER DAILY [facility] Start: 1980 [facility]igned [facility] Start: 1980 Sex Assigned At Male F [facility] Sex Assigned At [employer] Other Goals Date Patient Goal Desired [...] whether rheumatoid factor present (ICD-10 - M06.9) [employer] Other Evaluation note 03-14-2023 Note Date [...] WIll follow up with PCP Dr Palafox. [employer] Other Clinical Note 03-14-2023 Note Date & Type Note Facility 03-14-2023 Note [employer] Other FINDINGS: Suboptimal evalu ation due to body habitus. Vertebral body and disc space heights appear Evaluation note Note Date & Type Note Facility Evaluation note No assessment information availa [facility] Work Phone: Evaluation note Note Date & Type Note Facility Evaluation note No Information [employer] Other History general Narrative - Reported Note Date & Type Note Facility History general Narrative - Reported Type Medical History HTN (hypertension) Medical History GERD (gastroesophageal reflux di sease) Medical History Anxiety Medical History diabetes mallitus Medical History high cholesterol Medical History kidney disease Medical History obesity Medical History psychiatric disorder Surgical History fracture repair right ankle Hospitalization History see above [employer] Other Summary Purpose Family History Relationship [...] DATE CREATED AUTHOR AUTHOR'S ORGANIZ ATION 03/07/2023 [facility] DATE CREATED AUTHOR AUTHOR'S ORGANIZ ATION 06/23/2023 [facility] Care Teams (unrecognized sec tion and content) Compressor Engineer Relationship Specialty Start Date End Date AcostaEmma mustafaCHAPITO [id number] [id number] PCP - General Family Medicine 06/05/13 Team Status: Active Member Role Status Dates JD Stone Primary Care Provider Active Team Status: Inactive Member Role Status Dates JD Stone Primary Care Provider Active JD Snowden Attending Provider Active Compressor Engineer Relationship Specialty Start Date End Date Emam JewellCHAPITO [address] [address] PCP - General Family Medicine 06/05/13 Team [...] BE BASED ON THE PRIMARY CLINICAL RECORDS. [employer] [facility]. provides no warranty or guarantee of the accuracy or completeness of information in this document.
[2024-02-27 15:34] LABS: Erythrocyte Sedimentation Rate 116 mm/hr (<=15)
[2024-02-27 16:37] LABS: C Reactive Protein 10.43 mg/dL (<=0.50)
== END 2024-02-27 15:13 | disposition home or self-care (01) ==
LOC: LAB 15:12
PROVIDERS: PCP Nurse Practitioner Family; Visit Provider Internal Medicine Rheumatology
DX: Z79.899 Other long term (current) drug therapy (principal); R97.20 Elevated prostate specific antigen [PSA]
CPT/HCPCS: 36415; 85652; 86140

== ENCOUNTER 2025-01-22 09:23 | Outpatient (OUT) | payer MEDICARE, MEDICAID, SELFPAY ==
[2025-01-22 10:02] LABS: Hematocrit 40.4 % (42.0-54.0); Hemoglobin 13.6 g/dL (14.0-18.0); Immature Granulocytes Abs Auto 0.09 10^3/uL (0.00-0.03); Immature Granulocytes Pct Auto 0.6 % (0.0-0.5); Lymphocytes Absolute Auto 1.8 10^3/uL (1.2-3.8); Mean Corpuscular HGB Conc 33.7 g/dL (29.9-35.2); Mean Corpuscular Hemoglobin 28.2 pg (25.9-34.0); Mean Corpuscular Volume 83.6 fL (80.0-94.0); Platelet Count 268 10^3/uL (150-450); Red Blood Count 4.83 10^6/uL (4.70-6.10); White Blood Count 16.0 10^3/uL (4.0-11.0)
[2025-01-22 10:32] LABS: Alanine Aminotransferase 27 U/L (16-63); Albumin Globulin Ratio 0.9; Albumin Level 3.8 g/dL (3.4-5.0); Alkaline Phosphatase 129 U/L (46-116); Anion Gap 14.1; Aspartate Amino Transferase 14 U/L (15-37); Blood Urea Nitrogen 11.0 mg/dL (7.0-18.0); Calcium 9.7 mg/dL (8.5-10.1); Carbon Dioxide 27.0 mmol/L (21.0-32.0); Chloride 101 mmol/L (98-107); Cholesterol 208 mg/dL (<=200); Estimated GFR (African America >60 (>=60 mL/min/1.73m^2); Estimated GFR (Non-African Ame >60 (>=60 mL/min/1.73m^2); Free T3 2.70 pg/mL (2.18-3.98); Globulin 4.2 g/dL; Glucose 202 mg/dL (74-106); HDL Cholesterol 37 mg/dL (40-60); Potassium 4.1 mmol/L (3.5-5.1); Sodium 138 mmol/L (136-145); Thyroid Stimulating Hormone 3.507 uIU/mL (0.358-3.740); Total Protein 8.0 g/dL (6.4-8.2); Triglycerides 435 mg/dL (<=150); Uric Acid 4.9 mg/dL (3.5-7.2); VLDL CHOLESTEROL 87.0 mg/dL
== END 2025-01-22 09:24 | disposition home or self-care (01) ==
LOC: LAB 09:25
PROVIDERS: PCP Nurse Practitioner Family; Visit Provider Nurse Practitioner Family
DX: E78.5 Hyperlipidemia, unspecified (principal); Z12.5 Encounter for screening for malignant neoplasm of prostate; R73.09 Other abnormal glucose; M25.50 Pain in unspecified joint; R53.83 Other fatigue; I10 Essential (primary) hypertension
CPT/HCPCS: 36415; 80053; 80061; 83036; 83525; 83721; 84436; 84443; 84481; 84550; 85025; G0103

== ENCOUNTER 2025-06-04 14:13 | Outpatient (OUT) | payer MEDICARE, MEDICAID, SELFPAY ==
--- OUTSIDE RECORDS SUMMARY | 2025-06-04 14:17 | XMS_ITS | Clinical Summary ---
Author Organization [facility] Address [address] [place] [address] Care Team Providers Care Air Traffic Instructor Name Role Phone AcostaEmma mustafa MANJIT-RADIO PERSONALITY Primary Care Provider [phone] Source Comments The following information is NOT included in Care Everywhere downloads:Psychiatric notes, ECG results, Cardiac Rehab notes, Pulmonary Function notes, data from SmartForms (includes but not limited toPregnancy data,audiograms, eye exams, pre-surgical evaluation notes, well-child exam data).[facility] Allergies Active AllergyReactionsCriticalityNoted DateCommentsHydrochlorothiazideDry mouth 12/03/20138288RdecusdtngEebuu35/20/2014 Medications MedicationSigDispense QuantityRefillsLast FilledStart DateEnd DateStatus citalopram (CELEXA) 20 MG tablet Take 1 Tab by mouth daily. 30 Tab 6012/03/2013ctive omeprazole (PRILOSEC) 20 MG capsule Take 1 Cap by mouth daily. 30 Cap ctive calcipotriene-betamethasone (TACLONEX) 0.005-0.064 % ointment Apply topically daily. Apply thick amount to affected area. 100 g 6012/03/2013ctive metoprolol (LOPRESSOR) 25 MG tablet Take 1 Tab by mouth 2 times daily. 60 Tab ctive atorvastatin (LIPITOR) 40 MG tablet Take 1 Tab by mouth daily. 30 Tab 6012/03/2013ctive naproxen (NAPROSYN) 500 MG tablet Indications:Right shoulder painTake 1 Tab by mouth 2 times daily. 60 Tab ctive Active Problems ProblemNoted DateDiagnosed VmkzZkxoevrpt36/20/6107Bdaaqwcemydy84/24/2013 Depression with iiryvuz07/20/4095Kwwgrpgwcceh65/08/2013Esophageal reflux 04/23/2013Morbid efhslwa3504/23/2013 Family History Medical HistoryRelationNameCommentsDiabetes MellitusMaternal Grandmother HypertensionMaternal GrandmotherDENIES HEART DISEASE [Other]Other 1DENIES COLON AND PROSTATE CANCER [Other]Other 2RelationNameStatusCommentsFatherAliveMaternal GrandmotherMotherAliveOther 1Other 2 Social History Tobacco UseTypesPacks/DayYears UsedDateSmoking Tobacco: NeverAlcohol UseStandard Drinks/WeekCommentsYes0 (1 standard drink = 0.6 oz pure alcohol)6-10 BEER DAILY Sexually ActiveBirth ControlPartnersCommentsYesFemaleSubstance UseTypesUse/Week CommentsNoSex and Gender InformationValueDate RecordedSex Assigned at BirthNot on fileLegal ZxcPyzh2302/18/2013 10:09 AM EDTGender IdentityNot on fileSexual OrientationNot on file Last Filed Vital Signs Vital SignReadingTime TakenCommentsBlood Lvqdbkjp382/8903/31/2014 10:24 AM EDT Xachn043403/31/2014 10:24 AM DOLJsdmfhufuta11.3 ??C (97.4 ??F)03/31/2014 10:24 AM EDTRespiratory Dlfb060702/10/2014 4:32 PM EDTOxygen Saturation--Inhaled Oxygen Concentration--Gkqsgu292.7 kg (275 lb)03/31/2014 10:24 AM HAMCwhpzt331.4 cm (5' 5.5 )04/23/2013 6:19 PM EDTBody Mass Index45.0704/23/2013 6:19 PM EDT Plan of Treatment Health MaintenanceDue DateLast IhctXvyzihnsZlvhtlmzous1980Hepatitis C Wphlpujy25/05/1997Hepatitis A (HAV) Vaccine (optional start 19+ years)1998 Hepatitis B (HBV) Vaccine (1 of 3 - 19+ 3-dose series)1998Tetanus (Td or Tdap) Eujhxfu9603/21/1998Basic Metabolic Panel12/03/, 06/05/2013 Lnzjnmhhzbc94/20/, 06/05/2013, 06/05/2013CRC Ianzhenmp40/05/2024 Cologuard (Stool DNA)2024FIT4COVID-19 Vaccine ( season)2025Influenza Vaccine (#1)2025Shingles (RZV) Vaccine (1 of 2) 2029HIV DnkbCsovdtjcq77/08/2013 (Declined)Overridden with the intention of not completing the topicTdap QiigggfXxxuuszqv01/08/2013 (Declined)Overridden with the intention of not completing the topicPneumococcal Vaccine(s)Aged OutNo longer eligible based on patient's age to complete this topic Goals GoalPatient Goal TypeAssociated ProblemsRecent ProgressPatient-Stated?Author Blood Pressure < 140/90 Blood Ssoqpmlp045/89(03/31/2014 10:24 AM EDT)Emma Corado APRN-ALYSON Procedures Procedure NamePriorityDate/TimeAssociated DiagnosisCommentsBASIC METABOLIC PANEL Zhtqtek2012/03/2013 11:47 AM EDT Hyperlipemia Hypertension FULL LIPID HKQRPABJychekr22/20/2014 11:47 AM EDT Hyperlipemia Hypertension from Last 3 Months or Most Recently Relevant to Health Maintenance Results * BASIC METABOLIC PANEL (12/03/2013 11:47 AM EDT)ComponentValueRef RangeTest MethodAnalysis TimePerformed AtPathologist PlroefpcgFlkwnqi2965 - 110 mg/dLMHS PATHOLOGY JQTKQMBGTMMqaelu694772 - 148 mmol/[facility] Potassium4.33.3 - 5.3 mmol/[facility] GGRIBURWDMUviuscac54239 - 111 mmol/L [facility] LABORATORYCarbon Dccyamn4534 - 30 mmol/[facility] MQO465 - 22 mg/dLS PATHOLOGY LABORATORYCreatinine0.760.70 - 1.50 mg/dLS PATHOLOGY LABORATORYComment: ?? The estimated GFR is calculated based on patient age, sex and race. The ?? calculation is based on information obtained from the Annals of Internal ?? Medicine 2006; 145:247-254. Calcium9.98.4 - 10.4 mg/dLS PATHOLOGY LABORATORYAnion Hwn255 - 13[facility] PATH[facility] LABORATORYEstimated OSA440>59 mL/min/1.73sq [facility] PATHOLOGY LABORATORYSpecimen (Source)Anatomical Location / LateralityCollection Method / VolumeCollection TimeReceived TimeBLOOD SPECIMEN / Vjuoxvp4812/03/2013 11:47 AM EDT Narrative Authorizing ProviderResult TypeResult StatusEmcayden Shaneramsey INSPECTOR SEMICONDUCTOR WAFER-CNP98 GENERAL LAB Final ResultPerforming OrganizationAddressCity/State/ZIP CodePhone Number [facility] [address] [place] [phone] * (ABNORMAL) FULL LIPID PROFILE (12/03/2013 11:47 AM EDT)ComponentValueRef Range Test MethodAnalysis TimePerformed AtPathologist CcfopaudkRntrznfsnfd146(H)<181 mg/dLNOR[facility] ZBQGGTFNEFYbedfyihhthcp712(H)<151 mg/dLNOR[facility] PATHOLOG[facility] LABORATORYHDL Nemdfplidmm91(L)>44 mg/dLNOR[facility] PATHOLOG[facility] LABORATORYNon-HDL Cdfwmlfkahy666(H)<130 mg/dLNOR[facility]N [facility] PATHOLOGY LABORATORYChol/HDL Ratio6.67[facility] PATHOLOGY LABORATORYLDL qcmftkbbpwa324(H)<111 mg/dLNORTHERN [facility]AVA[facility] LAB[facility]ORY LDL/HDL Ratio4.67(H)<3.57[facility] PATHOLOGY LABORATORYSpecimen (Source)Anatomical Location / LateralityCollection Method / VolumeCollection TimeReceived Time BLOOD SPECIMEN / Oqiyunw6512/03/2013 11:47 AM EDT Narrative Authorizing ProviderResult TypeResult StatusEmcayden Best INSPECTOR SEMICONDUCTOR WAFER-CNP98 GENERAL LAB Final ResultPerforming OrganizationAddressCity/State/ZIP CodePhone Number [facility] [address] [place] [phone] from Last 3 Months or Most Recently Relevant to Health Maintenance Insurance * Guarantor: Lexa BashirAccount TypeRelation to PatientDate of BirthPhone Billing AddressPersonal/FthdcpFuww1980 [address] [place] [phone] Care Teams Team MemberRelationshipSpecialtyStart DateEnd Date Emma Jewell APRN-RADIO PERSONALITY [address] [phone] PCP - Generalmily Dxphylaz42/20/13
--- OUTSIDE RECORDS SUMMARY | 2025-06-04 14:17 | XMS_ITS | CCD ---
[facility] Organization [facility] Providers Care Home Theater Expert Name Role Phone DEAN, HORTENCIA Admitting Unavailable DEAN, HORTENCIA Attending Unavailable DEAN, HORTENCIA Primary Care Unavailable DEAN, HORTENCIA Admitting Unavailable DEAN, HORTENCIA Attending Unavailable DEAN, HORTENCIA Consulting Unavailable DEAN, HORTENCIA Primary Care Unavailable DEAN, HORTENCIA Admitting Unavailable DEAN, HORTENCIA Attending Unavailable DEAN, HORTENCIA Consulting Unavailable DEAN, HORTENCIA Primary Care Unavailable HALADAY, DR DEL ROSARIO Attending Unavailable HALADAY, DR DEL ROSARIO Consulting Unavailable HALADAY, DR DEL ROSARIO Admitting Unavailable DEAN, HORTENCIA Primary Care Unavailable HALADAY, DR DEL ROSARIO Attending Unavailable DEAN, HORTENCIA Primary Care Unavailable HALADAY, DR DEL ROSARIO Admitting Unavailable DEAN, HORTENCIA Admitting Unavailable DEAN, HORTENCIA Attending Unavailable DEAN, HORTENCIA Primary Care Unavailable Best SARAVIA-ASSISTANT MANAGER BILINGUAL, Emma Primary Care Provider Eda PARSON, Lynsey Guerrero Attending Unavailable Eda PARSON, Lynsey Guerrero Attending Unavailable Eda PARSON, Lynsey Guerrero Attending Unavailable JD Palafox Hortencia Jennifer Primary Care Provider [phone] JD Holt Attending Provider Marina Holt Unavailable JD Palafox Hortencia Jennifer Primary Care Provider [phone] MD Carin Bajwa Attending Provider [phone] Unavailable Primary Care Provider UnavailPaty ASHFORDC Hortencia Jennifer Primary Care Provider [phone] Kari Mercado Attending Provider Bridgette ABBOTT-C, Hortencia Jennifer Primary Care Provider [phone] Kari Mercado Attending Provider Kari Stafford Attending Unavailable Kari Stafford Admitting Unavailable Hortencia Palafox Primary Care Unavailable Kari Stafford Admitting Unavailable Hortencia Palafox Primary Care Unavailable Kari Stafford Attending Unavailable Allergies Allergy ClassificationReported Allergen(s)Allergy TypeDate of OnsetReaction(s) Facility (4 sources)hydroCHLOROthiazideDrug Zrisgrl48-82-9722[facility] Work Phone: (4 sources)LisinoprilPropensity to adverse reactions to zsqp13-79-1046Ru[facility]u [facility] Medications Current Medications MedicationDrug Class(es)DatesSig (Normalized)Sig (Original)acetaminophen 325 mg / HYDROcodone bitartrate 5 mg oral tablet (6 sources)Opioid AgonistStart: 91-25-8376dwwb 1 tablet by mouth once as needed HYDROcodone-Acetaminophen 5-325 MG Oral for 30 Days Not-Taking/[id number] 60 actuat albuterol 0.09 mg/actuat metered dose inhaler (3 sources)beta2-Adrenergic AgonistStart: 40-92-4334yder 2 puff(s) by inhalation every four hours as neededAlbuterol Sulfate HFA 108 (90 Base) MCG/ACT 2 puffs as needed Inhalation every 4 hrs for 30 days 2020 ActiveStart: 08-05-2020 take 2 puff(s) by inhalation every four hours as neededAlbuterol Sulfate HFA 108 (90 Base) MCG/ACT 2 puffs as needed Inhalation every 4 hrs for 30 days 2020 ActiveStart: 93-80-7202lufq 2 puff(s) by inhalation every four hours as neededAlbuterol Sulfate HFA 108 (90 Base) MCG/ACT 2 puffs as needed Inhalation every 4 hrs for 30 days 2020 ActiveamLODIPine 10 mg oral tablet (6 sources)Dihydropyridine Calcium Channel BlockerStart: 71-58-9294Ncfaq: 33-05-7786Lmjycizhvk Active MG PO August 29, 2023 12:00am FreeTextSig: (Prior Auth#:[id number]) Oral; Note: Source Status: Taking; Qty: 30 delayed release tablet; Provider: BRIDGETTE PAMELAamLODIPine Besylate 10 MG (Prior Auth#:[id number]) Oral for 30 Activeatorvastatin 80 mg oral tablet (10 sources)HMG-CoA Reductase InhibitorStart: 83-99-9244Doqmo: 08-29-2023 Atorvastatin Active MG PO August 29, 2023 12:00am FreeTextSig: (Prior Auth#:[id number]) Oral; Note: Source Status: Taking; Qty: 30 delayed release tablet; Provider: BRIDGETTE PAMELAStart: 26-85-5029woky 1 tablet by mouth once dailyatorvastatin (LIPITOR) 40 MG tablet Take 1 Tab by mouth daily. 30 Tab 6 12/03/2013 ActiveAtorvastatin Calcium 80 MG (Prior Auth#:[id number]) Oral for 30 Activebetamethasone 0.0005 mg/mg / calcipotriene 0.65436 mg/mg topical ointment (4 sources)Corticosteroid, Vitamin D AnalogStart: 66-08-7814xhsepeqhmkucd- betamethasone (TACLONEX) 0.005-0.064 % ointment Apply topically daily. Apply thick amount to affected area. 100 g 6 12/03/2013 Activecitalopram 20 mg oral tablet (4 sources)Serotonin Reuptake InhibitorStart: 16-31-6377ttjc 1 tablet by mouth once dailycitalopram (CELEXA) 20 MG tablet Take 1 Tab by mouth daily. 30 Tab 6 12/03/2013 Activecyclobenzaprine hydrochloride 10 mg oral tablet (6 sources)Muscle RelaxantStart: 15-20-0548vljg 1 tablet by mouth once daily at bedtimeCyclobenzaprine HCl 10 MG Oral for 30 Days ActiveDULoxetine 60 mg delayed release oral capsule (6 sources)Serotonin and Norepinephrine Reuptake InhibitorStart: 08-29-2023 Start: 46-18-8410Gruubzrcza Active MG PO August 29, 2023 12:00am FreeTextSig: (Prior Auth#:[id number]) Oral; Note: Source Status: Taking; Qty: 30 cap; Provider: BRIDGETTE ROSSDULoxetine HCl 60 MG (Prior Auth#:[id number]) Oral for 30 Activeesomeprazole 40 mg delayed release oral capsule (6 sources)Proton Pump InhibitorStart: 51-36-8736ahfw 1 capsule by mouth once dailyStart: 01-31-8293ugpv 1 capsule by mouth every twenty-four hoursNexIUM 40 MG 1 capsule Orally Once a day for 30 day(s) Jul, Activeibuprofen 800 mg oral tablet (6 sources)Nonsteroidal Anti-inflammatory DrugStart: 90-80-4592msjf 1 tablet by mouth every eight hours as neededtake 1 tablet by mouth every eight hours at mealtime as neededIbuprofen 800 MG 1 tablet with food or milk as needed Orally every 8 hrs Activelosartan potassium 100 mg oral tablet (6 sources)Angiotensin 2 Receptor BlockerStart: 48-22-5766Xunrs: 08-29-2023 Losartan Active MG PO August 29, 2023 12:00am FreeTextSig: (Prior Auth#:[id number]) Oral; Note:Source Status: Taking; Qty: 30 delayed release tablet; Provider: BRIDGETTE PAMELALosartan Potassium 100 MG (Prior Auth#:[id number]) Oral for 30 Activemetoprolol tartrate 25 mg oral tablet (10 sources)beta-Adrenergic BlockerStart: 57-79-4019igof 1 tablet by mouth twice daily at mealtimenaproxen 500 mg oral tablet (4 sources)Nonsteroidal Anti-inflammatory DrugStart: 75-40-5677ryoq 1 tablet by mouth twice dailynaproxen (NAPROSYN) 500 MG tablet Indications: Right shoulder pain Take 1 Tab by mouth 2 times daily. 60 Tab 3 03/31/2014 Activeomeprazole 20 mg delayed release oral capsule (4 sources)Proton Pump InhibitorStart: 68-89-1958dnzf 1 capsule by mouth once dailyomeprazole (PRILOSEC) 20 MG capsule Take 1 Cap by mouth daily. 30 Cap 6 12/03/2013 Activephentermine hydrochloride 37.5 mg oral tablet (6 sources)Sympathomimetic Amine AnorecticStart: 85-82-3790dvpp 1 tablet by mouth once daily before breakfasttake 1 tablet by mouth before breakfast Phentermine HCl 37.5 MG TAKE 1 TABLET BY MOUTH BEFORE BREAKFAST Oral for 30 Days ActiveSecukinumab (3 sources)Interleukin-17A AntagonistStart: 58-83-2167Rjkgt: 08-29-2023 Secukinumab (Cosentyx) 25 mg/mL solution Active IV August 29, 2023 1:00am Cosentyx ActiveSecukinumab (Cosentyx) 25 mg/mL solution (1 source)Start: 59-08-3653Ckxclkkvsfo (Cosentyx) 25 mg/mL solution Active IV August 29, 2023 12:00am Completed/Discontinued Medications MedicationDrug Class(es)DatesSig (Normalized)Sig (Original)methylPREDNISolone 4 mg oral tablet (3 sources)CorticosteroidStart: 27-92-2791Kqitdb 4 MG as directed Orally for 6 days Jul, Not-Taking/PRNpredniSONE 10 mg oral tablet (3 sources)Start: 21-69-5083rupjonGHWX 10 MG Take 3 tablets by mouth for 3 days then 2 tablets by mouth for 3 days then 1 tablet by mouth for 3 days Orally Once a day for Feb, Not-Taking/PRN Problems Active Problems Problem ClassificationProblemDateDocumented DateEpisodic/ChronicAnxiety disorders (6 sources)Mixed anxiety and depressive disorder; Translations: [Other specified anxiety disorders]Onset: 168987-39-1298IulvsnpBxxgkwhm mellitus without complication (3 sources)Diabetes mellitus; Translations: [Type 2 diabetes mellitus without complications]36-15-0305IsytxgzLyxkxietr of lipid metabolism (7 sources)Hyperlipidemia; Translations: [Hyperlipidemia, unspecified]Onset: 988442-28-7056ZekulfsZllcxlkzsu disorders (7 sources)Gastroesophageal reflux disease; Translations: [Gastro-esophageal reflux disease without esophagitis]Onset: 705587-55-7977NbbijzcZwndimzrj hypertension (7 sources)Hypertensive disorder; Translations: [Essential (primary) hypertension]Onset: 600462-39-8452MdudwfaBzotyromwwphr mental health disorders (3 sources)Mental disorder; Translations: [Mental disorder, not otherwise specified]91-34-1759XnuknsiGxlj disorders (1 source)Dysthymic disorderOnset: 802096-13-8302MkvswkpBneli and unspecified benign neoplasm (1 source)Benign lipomatous neoplasm of other sitesEpisodicOther diseases of kidney and ureters (3 sources)Kidney disease; Translations: [Disorder of kidney and ureter, unspecified]53-31-8453CczyptdsZnrjl inflammatory condition of skin (3 sources)Psoriasis; Translations: [Psoriasis, unspecified]Onset: 12-03-2013 83-66-9504BffdzswQnwil inflammatory condition of skin (1 source)Other psoriasisOnset: 458934-67-1347CfqjemyNfnby inflammatory condition of skin (1 source)Distal interphalangeal psoriatic arthropathy; Translations: [Distal interphalangeal psoriatic arthropathy]Onset: 77-38-3679ConfemcBwyxc nervous system disorders (3 sources)Chronic pain; Translations: [Other chronic pain]98-61-8147Zvkgjrc Other nutritional; endocrine; and metabolic disorders (6 sources)Morbid obesity; Translations: [Morbid (severe) obesity due to excess calories]Onset: 539982-07-6638PhfgwesVdwej nutritional; endocrine; and metabolic disorders (1 source)Morbid (severe) obesity due to excess caloriesChronicOther nutritional; endocrine; and metabolic disorders (3 sources)Obesity; Translations: [Obesity, unspecified]82-05-2737JszjspzXadch nutritional; endocrine; and metabolic disorders (1 source)Morbid obesityOnset: 962492-11-5034PzfzpeyJqijsljcob arthritis and related disease (1 source)Rheumatoid arthritis, unspecifiedChronicSpondylosis; intervertebral disc disorders; other back problems (9 sources)Inflammation of sacroiliac joint; Translations: [Sacroiliitis, not elsewhere classified]61-99-3980EmjwrthTviytzectzj; intervertebral disc disorders; other back problems (3 sources)Spinal stenosis, lumbar region with neurogenic claudication; Translations: [Radiculopathy, lumbar region]Episodic Past or Other Problems Problem ClassificationProblemDateDocumented DateEpisodic/ChronicImmunizations and screening for infectious disease (4 sources)Encounter for screening for other viral diseases; Translations: [ENC SCREENING FOR OTH VIRAL DZ]Onset: 93-52-4966DtvluoxiAiagojsvkcjc (1 source)Lumbar pain M54.50 Results Test NameValueInterpretationReference RangeFacilityAlanine aminotransferase [Enzymatic activity/volume] in Serum or PlasmaOrdered By: Kari Stafford on 98-26-0989UBU [Catalytic activity/Vol]24 U/LNormal7-52M[facility]own HospitalComment on above:Performed By: #### ESR, CBC, CRP, CMP #### [facility] [address] [place] [address] USAAlbumin [Mass/volume] in Serum or Plasma by Bromocresol green (BCG) dye binding methoOrdered By: Kari Stafford on 16-55-0353Dloztkf BCG dye [Mass/Vol]4.5 g/dL3.5-5.7FSt. Rita's HospitalAlkaline phosphatase [Enzymatic activity/volume] in Serum or PlasmaOrdered By: Kari Stafford on 72-31-5392PMH [Catalytic activity/Vol]103 U/BKdygpy26-697WessbebtmMiddletown HospitalComment on above:Performed By: #### ESR, CBC, CRP, CMP #### [place] [address] USAAspartate aminotransferase [Enzymatic activity/volume] in Serum or PlasmaOrdered By: Kari Stafford on 60-22-3019AUT [Catalytic activity/Vol]17 U/WWjslim78-53DuxakqbmwMiddletown HospitalComment on above: Performed By: #### ESR, CBC, CRP, CMP #### [place] [address] USABasophils [#/volume] in Blood by Automated countOrdered By: Kari Stafford on 96-35-8976Sfijrrqhv (Bld) [#/Vol]0.1 10*3/uLNormal0.0-0.2 [facility] HospitalComment on above:Performed By: #### ESR, CBC, CRP, CMP #### [facility] [address] [place] [address] USABasophils/100 leukocytes in Blood by Automated count Ordered By: Kari Stafford on 14-76-8345Wrrlnxwjr/100 WBC (Bld)0.5 %Normal. [facility]own HospitalComment on above:Performed By: #### ESR, CBC, CRP, CMP #### [place] [address] USABilirubin.total [Mass/volume] in Serum or PlasmaOrdered By: Kari Stafford on 52-25-5007Lzdxxoiux [Mass/Vol]0.5 mg/dLNormal0.3-1.0 [facility] HospitalComment on above:Performed By: #### ESR, CBC, CRP, CMP #### [facility] [address] [place] [id number] USAC reactive protein [Mass/volume] in Serum or PlasmaOrdered By: Kari Stafford on 09-42-8917UYX [Mass/Vol]2.3 mg/dLHigh0.0-0.5FSt. Rita's HospitalC-Reactive Proteinon 89-51-1275J-Reactive Protein2.3 mg/dLHigh0.0-0.5The [facility] Physician GroupComment on above:Result Comment: PERFORMED BY: [facility] [address] [place] [id number] PATHOLOGIST BUSINESS DEVELOPMENT BRIAN HERNANDEZ M.D.Performed By: #### ESR, CBC, CRP, CMP #### [facility] [address] [place] [address] USACalcium [Mass/volume] in Serum or PlasmaOrdered By: Kari Stafford on 52-72-7223Nwirwpq [Mass/Vol]9.4 mg/dLNormal8.6-10.3FSt. Rita's HospitalComment on above:Performed By: #### ESR, CBC, CRP, CMP #### [facility] [address] [place] [address] USACarbon dioxide, total [Moles/volume] in Serum or Plasma Ordered By: Kari Stafford on 84-98-2165JW7 [Moles/Vol]25.7 mmol/KPcanrl06.0-31.0 [facility] HospitalComment on above:Performed By: #### ESR, CBC, CRP, CMP #### [facility] [address] [place] [id number] USAChloride [Moles/volume] in Serum or PlasmaOrdered By: Kari Stafford on 50-34-2896Hvlosndt [Moles/Vol]102 mmol/QMlktdv85-325KceuwytfdMiddletown HospitalComment on above:Performed By: #### ESR, CBC, CRP, CMP #### [facility] [address] [place] [id number] USAComplete Blood Count Auto Diffon 23-94-2274Bxgq Corpuscular HGB Conc33.1 g/vSZtfzot48.5-35.6The [facility] Physician GroupComment on above:Performed By: #### ESR, CBC, CRP, CMP #### [facility] [address] [place] [address] USANRBC%0.2 /100{WBC}Normal0-0.5[facility] Physician [facility] Comment on above:Performed By: #### ESR, CBC, CRP, CMP #### [facility] [address] [place] [address] USAWhite Blood Count11.5 [CFU]/mLHigh4.1-10.5[facility] Physician [facility] HospitalComment on above:Performed By: #### ESR, CBC, CRP, CMP #### [place] [address] USAComprehensive Metabolic Panelon 38-08-0475Dhikdfi [Mass/Vol]4.5 g/dLNormal3.5-5.7[facility] Physician [facility] HospitalComment on above: Performed By: #### ESR, CBC, CRP, CMP #### [place] [address] USAGFR/1.73 sq M.predicted MDRD (S/P/Bld) [Vol rate/Area] mL/min/{1.73_m2}NormalThe [facility] Physician [facility] HospitalComment on above:Performed By: #### ESR, CBC, CRP, CMP #### [place] [address] USACreatinine [Mass/volume] in Serum or PlasmaOrdered By: Kari Stafford on 18-67-0422Wdefhudlca [Mass/Vol]0.67 mg/dLLow0.70-1.30M[facility]letown HospitalComment on above:Performed By: #### ESR, CBC, CRP, CMP #### [place] [address] USAEosinophils [#/volume] in Blood by Automated countOrdered By: Kari Stafford on 03-10-0364Gmvlbrbotuu (Bld) [#/Vol]0.2 10*3/uLNormal 0.0-0.45M[facility]own HospitalComment on above:Performed By: #### ESR, CBC, CRP, CMP #### [facility] [address] [place] [id number] USAEosinophils/100 leukocytes in Blood by Automated count Ordered By: Kari Stafford on 00-63-1895Bhzxomrkbao/100 WBC (Bld)1.9 %Normal. [facility] HospitalComment on above:Performed By: #### ESR, CBC, CRP, CMP #### [facility] [address] [place] [id number] USAErythrocyte Sedimentation Rateon 95-97-9788HZN (Bld) [Velocity]46 mm/hHigh0-14The [facility] Physician GroupComment on above:Result Comment: PERFORMED BY: [place] [address] PATHOLOGIST BUSINESS DEVELOPMENT BRIAN HERNANDEZ M.D.Performed By: #### ESR, CBC, CRP, CMP #### [place] [address] USAErythrocyte distribution width [Ratio] by Automated count Ordered By: Kari Stafford on 72-07-7643Qdgjxseahde distribution width (RBC) [Ratio]13.8 %Fzfwgx68.0-14.8M[facility]letown HospitalComment on above: Performed By: #### ESR, CBC, CRP, CMP #### [place] [id number] USAErythrocyte sedimentation rate by Photometric method Ordered By: Kari Stafford on 36-18-2014VAP Photometric method (Bld) [Velocity]46 mm/hrHigh0-14Middletown HospitalErythrocytes [#/volume] in Blood by Automated countOrdered By: Kari Stafford on 09-67-9298JSY (Bld) [#/Vol]4.87 10*6/uLNormal3.90-5.60M[facility]own HospitalComment on above: Performed By: #### ESR, CBC, CRP, CMP #### [place] [address] USAGlomerular filtration rate [Volume Rate/Area] in Serum, Plasma or Blood by CreatinineOrdered By: Kari Stafford on 89-95-2889Iykovymuqn filtration rate [Volume Rate/Area] in Serum, Plasma or Blood by Creatinine> 60.0 mL/MinMiddletown HospitalGlucose [Mass/volume] in Serum or Plasma Ordered By: Kari Stafford on 91-48-9746Kqpzcbl [Mass/Vol]224 mg/xIRchi97-985 [facility]own HospitalComment on above:ADA recommended reference rangeRandom Glucose Reference Range is dependent on time and content of last meal. Glucose of more than 200 mg/dL in a nonstressed, ambulatory subject supports the diagnosisof Diabetes Mellitus.Result Comment: Random Glucose Reference Range is dependent on time and content of last meal. Glucose of more than 200 mg/dL in a nonstressed, ambulatory subject supports the diagnosis of Diabetes Mellitus. ADA recommended reference rangePerformed By: #### ESR, CBC, CRP, CMP #### [facility] [address] [place] [address] USAHematocrit [Volume Fraction] of Blood by Automated count Ordered By: Kari Stafford on 51-28-2796Muttbpojpf (Bld) [Volume fraction]41.1 % Nivwne39.8-50.0M[facility]own HospitalComment on above:Performed By: #### ESR, CBC, CRP, CMP #### [facility] [address] [place] [id number] USAHemoglobin [Mass/volume] in BloodOrdered By: Kari Stafford on 11-34-0371Agjyylehlf (Bld) [Mass/Vol]13.6 g/iBAaxjti46.0-17.0M[facility]own HospitalComment on above:Performed By: #### ESR, CBC, CRP, CMP #### [facility] [address] [place] [id number] USALeukocytes [#/volume] corrected for nucleated erythrocytes in Blood by Automated counOrdered By: Kari Stafford on 00-80-7599DID corrected for nucl RBC Auto (Bld) [#/Vol]11.5 10*3/uLHigh4.1-10.5FSt. Rita's HospitalLeukocytes [#/volume] in Blood by Automated countOrdered By: Kari Stafford on 26-57-4566EQC (Bld) [#/Vol]11.5 10*3/uLHigh4.1-10.5FSt. Rita's HospitalComment on above:Performed By: #### ESR, CBC, CRP, CMP #### [facility] [address] [place] [address] USALymphocytes [#/volume] in Blood by Automated countOrdered By: Kari Stafford on 61-40-1687Aumjgwwjbsm (Bld) [#/Vol]2.0 10*3/uLNormal 1.00-4.8M[facility]own HospitalComment on above:Performed By: #### ESR, CBC, CRP, CMP #### [facility] [address] [place] [address] USALymphocytes/100 leukocytes in Blood by Automated count Ordered By: Kari Stafford on 56-74-6218Vtylhzvikhi/100 WBC (Bld)17.4 %Normal. [facility]own HospitalComment on above:Performed By: #### ESR, CBC, CRP, CMP #### [facility] [address] [place] [address] [Entitic mass] by Automated countOrdered By: Kari Stafford on 44-65-4449EGC (RBC) [Entitic mass]28.0 idHmpnor02.5-35.2FSt. Rita's HospitalComment on above:Performed By: #### ESR, CBC, CRP, CMP #### [facility] [address] [place] [address] Auto (RBC) [Mass/Vol]Ordered By: Kari Stafford on 66-38-9476KVUD (RBC) [Mass/Vol]33.1 g/dL32.5-35.6FSt. Rita's HospitalMCV [Entitic volume] by Automated countOrdered By: Kari Stafford on 63-15-7105DHP (RBC) [Entitic vol]84.5 mZZymgha26.5-101Middletown HospitalComment on above:Performed By: #### ESR, CBC, CRP, CMP #### [facility] [address] [place] [address] USAMonocytes [#/volume] in Blood by Automated countOrdered By: Kari Stafford on 77-74-9628Gicndwtji (Bld) [#/Vol]0.5 10*3/uLNormal0.0-0.8 [facility] HospitalComment on above:Performed By: #### ESR, CBC, CRP, CMP #### [facility] [address] [place] [address] USAMonocytes/100 leukocytes in Blood by Automated count Ordered By: Kari Stafford on 79-89-9060Qjkcmvozj/100 WBC (Bld)4.3 %Normal. [facility] HospitalComment on above:Performed By: #### ESR, CBC, CRP, CMP #### [facility] [address] [place] [address] USANeutrophils [#/volume] in Blood by Automated countOrdered By: Kari Stafford on 34-80-4250Hhzoaqamete (Bld) [#/Vol]8.7 10*3/uLHigh1.8-7.7 [facility] HospitalComment on above:Performed By: #### ESR, CBC, CRP, CMP #### [facility] [address] [place] [id number] USANeutrophils/100 leukocytes in Blood by Automated count Ordered By: Kari Stafford on 94-98-1513Kbbinpixsfg/100 WBC (Bld)75.9 %Normal. [facility] HospitalComment on above:Performed By: #### ESR, CBC, CRP, CMP #### [facility] [address] [place] [address] USANo Panel InformationOrdered By: Kari Stafford on 97-37-1770Pzdiszfi Creatinine Clearance (ChemN/Premier HealthNucleated erythrocytes [Presence] in Blood by Automated countOrdered By: Kari Stafford on 30-72-5119Xlcllammk RBC Auto Ql (Bld)0.2 /100{WBC}0-0.5 [facility] HospitalPlatelet mean volume [Entitic volume] in Blood by Automated countOrdered By: Kari Stafford on 84-76-5682Mtbyxavs mean volume (Bld) [Entitic vol]9.2 fLNormal6.6-10.1FSt. Rita's HospitalComment on above:Performed By: #### ESR, CBC, CRP, CMP #### [facility] [address] [place] [address] USAPlatelets [#/volume] in Blood by Automated countOrdered By: Kari Stafford on 99-16-4029Plmxfcdnv (Bld) [#/Vol]246 10*3/wMIajuyt650-514 [facility] HospitalComment on above:Performed By: #### ESR, CBC, CRP, CMP #### [facility] [address] [place] [address] USAPotassium [Moles/volume] in Serum or PlasmaOrdered By: Kari Stafford on 26-21-6042Xxeibjzde [Moles/Vol]4.2 mmol/LNormal3.5-5.1FSt. Rita's HospitalComment on above:Performed By: #### ESR, CBC, CRP, CMP #### [facility] [address] [place] [address] USAProtein [Mass/volume] in Serum or PlasmaOrdered By: Kari Stafford on 06-00-2645Uhbdztr [Mass/Vol]7.4 g/dLNormal6.4-8.9M[facility] HospitalComment on above:Performed By: #### ESR, CBC, CRP, CMP #### [facility] [address] [place] [address] USASerum globulin measurement by calculation (mass/volume) Ordered By: Kari Stafford on 77-30-3610Vwekdwrp (S) [Mass/Vol]2.9 g/dLNormal [facility] HospitalComment on above:Performed By: #### ESR, CBC, CRP, CMP #### [facility] [address] [place] [address] USASerum or plasma albumin/globulin mass ratioOrdered By: Kari Stafford on 13-90-5930Hfqgybs/Globulin [Mass ratio]1.6 {ratio}Normal [facility] HospitalComment on above:Performed By: #### ESR, CBC, CRP, CMP #### [facility] [address] [place] [address] USASerum or plasma anion gap determinationOrdered By: Kari Stafford on 41-21-9066Chzuh gap [Moles/Vol]14.5 mmol/LNormal6.0-15.0[facility] HospitalComment on above:Performed By: #### ESR, CBC, CRP, CMP #### [facility] [address] [place] [address] USASodium [Moles/volume] in Serum or PlasmaOrdered By: Kari Stafford on 22-79-6219Lotqlo [Moles/Vol]138 mmol/RGufmwb723-078CfhweklpvMiddletown HospitalComment on above:Performed By: #### ESR, CBC, CRP, CMP #### [facility] [address] [place] [address] USAUrea nitrogen [Mass/volume] in Serum or PlasmaOrdered By: Kari Stafford on 78-86-3597Ixul nitrogen [Mass/Vol]11 mg/dLNormal7-[facility] HospitalComment on above:Performed By: #### ESR, CBC, CRP, CMP #### [facility] [address] [place] [address] USAAlanine aminotransferase [Enzymatic activity/volume] in Serum or PlasmaOrdered By: Kari Stafford on 63-51-8303UNC [Catalytic activity/Vol]Alanine aminotransferase [Enzymatic activity/volume] in Serum or Plasma752Middletown HospitalAlbumin [Mass/volume] in Serum or Plasma by Bromocresol green (BCG) dye binding methoOrdered By: Kari Stafford on 39-94-1427Ztizsgf BCG dye [Mass/Vol]Albumin [Mass/volume] in Serum or Plasma by Bromocresol green (BCG) dye binding metho3.5-5.7FSt. Rita's HospitalAlkaline phosphatase [Enzymatic activity/volume] in Serum or PlasmaOrdered By: Kari Stafford on 71-53-9141PVT [Catalytic activity/Vol]Alkaline phosphatase [Enzymatic activity/volume] in Serum or BffnqbDyvc89-414XqksakazdMiddletown HospitalAspartate aminotransferase [Enzymatic activity/volume] in Serum or PlasmaOrdered By: Kari Stafford on 68-17-4748IKA [Catalytic activity/Vol] Aspartate aminotransferase [Enzymatic activity/volume] in Serum or Kbrbzj58-57 [facility] HospitalBasophils Auto (Bld) [#/Vol]Ordered By: Kari Stafford on 56-13-6957Jojsbzrft (Bld) [#/Vol]Automated basophil count0.0-0.2 [facility] HospitalBasophils/100 WBC Auto (Bld)Ordered By: Kari Stafford on 13-32-2548Ikarrqtyj/100 WBC (Bld)Automated basophil %.[facility] HospitalBilirubin.total [Mass/volume] in Serum or PlasmaOrdered By: Kari Stafford on 05-67-1050Yxomdbvcy [Mass/Vol]Bilirubin.total [Mass/volume] in Serum or Plasma0.3-1.0[facility]own HospitalC reactive protein [Mass/volume] in Serum or PlasmaOrdered By: Kari Stafford on 91-61-3715ZXN [Mass/Vol]C reactive protein [Mass/volume] in Serum or PlasmaHigh0.0-0.5 [facility] HospitalC-Reactive Proteinon 68-22-3669W-Reactive Protein2.6 mg/dLHigh0.0-0.5The [facility] Physician GroupComment on above:Result Comment: PERFORMED BY: [place] [address] PATHOLOGIST BUSINESS DEVELOPMENT BRIAN HERNANDEZ M.D.Performed By: #### ESR, CMP, CRP, CBC #### [place] [address] USACalcium [Mass/volume] in Serum or PlasmaOrdered By: Kari Stafford on 59-03-5374Ssikfig [Mass/Vol]Calcium [Mass/volume] in Serum or Plasma 8.6-10.3FSt. Rita's HospitalCarbon dioxide, total [Moles/volume] in Serum or PlasmaOrdered By: Kari Stafford on 10-70-1880KI7 [Moles/Vol]Carbon dioxide, total [Moles/volume] in Serum or Acouyc91.0-31.0[facility] HospitalChloride [Moles/volume] in Serum or PlasmaOrdered By: Kari Stafford on 42-55-9669Odnihnnw [Moles/Vol]Chloride [Moles/volume] in Serum or Budymk57-559ZvcaiorcvMiddletown HospitalComplete Blood Count Auto Diffon 32-37-8473Jscnkowre (Bld) [#/Vol]0.1 10*3/uLNormal0.0-0.2The [facility] Physician GroupComment on above:Performed By: #### ESR, CMP, CRP, CBC #### [facility] [address] [place] [address] USABasophils/100 WBC (Bld)1.0 %Normal.The [facility] Hospital Physician GroupComment on above:Performed By: #### ESR, CMP, CRP, CBC #### [facility] [address] [place] [address] USAEosinophils (Bld) [#/Vol]0.4 10*3/uLNormal0.0-0.45The [facility] Hospital Physician GroupComment on above:Performed By: #### ESR, CMP, CRP, CBC #### [facility] [address] [place] [address] USAEosinophils/100 WBC (Bld)2.6 %Normal.The [facility] Hospital Physician GroupComment on above:Performed By: #### ESR, CMP, CRP, CBC #### [facility] [address] [place] [address] USAErythrocyte distribution width (RBC) [Ratio]13.8 %Normal 12.0-14.8The [facility] Hospital Physician GroupComment on above:Performed By: #### ESR, CMP, CRP, CBC #### [facility] [address] [place] [address] USAHematocrit (Bld) [Volume fraction]39.9 %Gwzqdy92.8-50.0The [facility] Hospital Physician GroupComment on above:Performed By: #### ESR, CMP, CRP, CBC #### [place] [address] USAHemoglobin (Bld) [Mass/Vol]13.6 g/fKSlekza98.0-17.0The [facility] Hospital Physician GroupComment on above:Performed By: #### ESR, CMP, CRP, CBC #### [place] [address] USALymphocytes (Bld) [#/Vol]2.0 10*3/uLNormal1.00-4.8The [facility] Physician GroupComment on above:Performed By: #### ESR, CMP, CRP, CBC #### [place] [address] USALymphocytes/100 WBC (Bld)14.0 %Normal.The [facility] Hospital Physician GroupComment on above:Performed By: #### ESR, CMP, CRP, CBC #### [address] (RBC) [Entitic mass]28.3 gpIaidal41.5-35.2The [facility] Hospital Physician GroupComment on above:Performed By: #### ESR, CMP, CRP, CBC #### [address] (RBC) [Entitic vol]83.2 fLLow83.5-101The [facility] Hospital Physician GroupComment on above:Performed By: #### ESR, CMP, CRP, CBC #### [place] [address] USAMean Corpuscular HGB Conc34.0 g/hWFaaejo51.5-35.6The [facility] Physician GroupComment on above:Performed By: #### ESR, CMP, CRP, CBC #### [place] [address] USAMonocytes (Bld) [#/Vol]0.8 10*3/uLNormal0.0-0.8The [facility] Physician GroupComment on above:Performed By: #### ESR, CMP, CRP, CBC #### [place] [address] USAMonocytes/100 WBC (Bld)5.5 %Normal.The [facility] Physician GroupComment on above:Performed By: #### ESR, CMP, CRP, CBC #### [facility] [address] [place] [address] USANeutrophils (Bld) [#/Vol]10.8 10*3/uLHigh1.8-7.7The [facility] Physician GroupComment on above:Performed By: #### ESR, CMP, CRP, CBC #### [facility] [address] [place] [address] USANeutrophils/100 WBC (Bld)76.9 %Normal.The [facility] Physician GroupComment on above:Performed By: #### ESR, CMP, CRP, CBC #### [facility] [address] [place] [address] USANRBC%0.1 /100{WBC}Normal0-0.5The [facility] Comment on above:Performed By: #### ESR, CMP, CRP, CBC #### [place] [address] USAPlatelet mean volume (Bld) [Entitic vol]9.6 fLNormal 6.6-10.1The [facility] Physician GroupComment on above:Performed By: #### ESR, CMP, CRP, CBC #### [place] [address] USAPlatelets (Bld) [#/Vol]284 10*3/bZGkotvu173-627Nqx [facility] Physician GroupComment on above:Performed By: #### ESR, CMP, CRP, CBC #### [place] [address] USARBC (Bld) [#/Vol]4.80 10*6/uLNormal3.90-5.60The [facility] Physician GroupComment on above:Performed By: #### ESR, CMP, CRP, CBC #### [place] [address] USAWBC (Bld) [#/Vol]14.0 10*3/uLHigh4.1-10.5The [facility] Physician GroupComment on above:Performed By: #### ESR, CMP, CRP, CBC #### [place] [address] USAComprehensive Metabolic Panelon 38-24-5608Vajoxxh [Mass/Vol]4.5 g/dLNormal3.5-5.7The [facility] Physician GroupComment on above: Performed By: #### ESR, CMP, CRP, CBC #### [facility] [address] [place] [address] USAAlbumin/Globulin [Mass ratio]1.7 {ratio}NormalThe [facility] Hospital Physician GroupComment on above:Performed By: #### ESR, CMP, CRP, CBC #### [facility] [address] [place] [address] USAALP [Catalytic activity/Vol]114 U/KPyfb75-318Dix [facility] Physician GroupComment on above:Performed By: #### ESR, CMP, CRP, CBC #### [facility] [address] [place] [address] USAALT [Catalytic activity/Vol]18 U/LNormal7-52The [facility] Physician GroupComment on above:Performed By: #### ESR, CMP, CRP, CBC #### [facility] [address] [place] [address] USAAnion gap [Moles/Vol]12.4 mmol/LNormal6.0-15.0The [facility] Physician GroupComment on above:Performed By: #### ESR, CMP, CRP, CBC #### [facility] [address] [place] [address] USAAST [Catalytic activity/Vol]15 U/TIvhhch04-56Ybr [facility] Physician GroupComment on above:Performed By: #### ESR, CMP, CRP, CBC #### [facility] [address] [place] [id number] USABilirubin [Mass/Vol]0.6 mg/dLNormal0.3-1.0The [facility] Physician GroupComment on above:Performed By: #### ESR, CMP, CRP, CBC #### [facility] [address] [place] [address] USACalcium [Mass/Vol]9.2 mg/dLNormal8.6-10.3The [facility] Physician GroupComment on above:Performed By: #### ESR, CMP, CRP, CBC #### [facility] [address] [place] [address] USAChloride [Moles/Vol]99 mmol/KJaquxr56-212Htx [facility] Physician GroupComment on above:Performed By: #### ESR, CMP, CRP, CBC #### [facility] [address] [place] [address] USACO2 [Moles/Vol]27.7 mmol/YQduwey12.0-31.0The [facility] Physician GroupComment on above:Performed By: #### ESR, CMP, CRP, CBC #### [place] [address] USACreatinine [Mass/Vol]0.66 mg/dLLow0.70-1.30The [facility] Physician GroupComment on above:Performed By: #### ESR, CMP, CRP, CBC #### [place] [address] USAGFR/1.73 sq M.predicted MDRD (S/P/Bld) [Vol rate/Area] mL/min/{1.73_m2}NormalThe [facility] Hospital Physician GroupComment on above:Performed By: #### ESR, CMP, CRP, CBC #### [place] [address] USAGlobulin (S) [Mass/Vol]2.7 g/dLNormalThe [facility] Physician GroupComment on above:Performed By: #### ESR, CMP, CRP, CBC #### [place] [address] USAGlucose [Mass/Vol]219 mg/vMVwno45-383Snp [facility] Physician GroupComment on above:Result Comment: Random Glucose Reference Range is dependent on time and content of last meal. Glucose of more than 200 mg/dL in a nonstressed, ambulatory subject supports the diagnosis of Diabetes Mellitus. ADA recommended reference rangePerformed By: #### ESR, CMP, CRP, CBC #### [facility] [address] [place] [address] USAPotassium [Moles/Vol]4.1 mmol/LNormal3.5-5.1The [facility] Physician GroupComment on above:Performed By: #### ESR, CMP, CRP, CBC #### [facility] [address] [place] [address] USAProtein [Mass/Vol]7.2 g/dLNormal6.4-8.9The [facility] Hospital Physician GroupComment on above:Performed By: #### ESR, CMP, CRP, CBC #### [place] [address] USASodium [Moles/Vol]135 mmol/KZeo640-402Gzi [facility] Physician GroupComment on above:Performed By: #### ESR, CMP, CRP, CBC #### [place] [address] USAUrea nitrogen [Mass/Vol]12 mg/dLNormal7-25The [facility] Physician GroupComment on above:Performed By: #### ESR, CMP, CRP, CBC #### [place] [address] USACreatinine [Mass/volume] in Serum or PlasmaOrdered By: Kari Stafford on 77-38-1909Pvxiljlelh [Mass/Vol]Creatinine [Mass/volume] in Serum or PlasmaLow0.70-1.30[facility] HospitalEosinophils Auto (Bld) [#/Vol]Ordered By: Kari Stafford on 32-72-8467Rrpyokqlgvn (Bld) [#/Vol] Automated eosinophil count0.0-0.45[facility] Eosinophils/100 WBC Auto (Bld)Ordered By: Kari Stafford on 12-16-2024 Eosinophils/100 WBC (Bld)Automated eosinophil %.[facility]own HospitalErythrocyte Sedimentation Rateon 91-01-9899CKA (Bld) [Velocity]48 mm/hHigh 0-14The [facility] Physician GroupComment on above:Result Comment: PERFORMED BY: [place] [address] PATHOLOGIST BUSINESS DEVELOPMENT BRIAN HERNANDEZ M.D.Performed By: #### ESR, CMP, CRP, CBC #### [place] [address] USAErythrocyte distribution width Auto (RBC) [Ratio]Ordered By: Kari Stafford on 55-47-7282Mprwtsvsvmr distribution width (RBC) [Ratio] Erythrocyte distribution width [Ratio] by Automated count12.0-14.8[facility] HospitalErythrocyte sedimentation rate by Photometric method Ordered By: Kari Stafford on 98-31-6654ORM Photometric method (Bld) [Velocity] Erythrocyte sedimentation rate by Photometric methodHigh0-14M[facility]own HospitalGlobulin Calc (S) [Mass/Vol]Ordered By: Kari Stafford on 49-12-1941Oenczens (S) [Mass/Vol]Serum globulin measurement by calculation (mass/volume)[facility] HospitalGlucose [Mass/volume] in Serum or PlasmaOrdered By: Kari Stafford on 83-44-9692Tmvnqvs [Mass/Vol]Glucose [Mass/volume] in Serum or HmjstmNkds20-856UyvjbygzdMiddletown Hospital Comment on above:ADA recommended reference rangeRandom Glucose Reference Range is dependent on time and content of last meal. Glucose of more than 200 mg/dL in a nonstressed, ambulatory subject supports the diagnosisof Diabetes Mellitus. Hematocrit Auto (Bld) [Volume fraction]Ordered By: Kari Stafford on 12-16-2024 Hematocrit (Bld) [Volume fraction]Hematocrit [Volume Fraction] of Blood by Automated count38.8-50.0[facility] HospitalHemoglobin [Mass/volume] in BloodOrdered By: Kari Stafford on 18-33-1948Vuxlsykgid (Bld) [Mass/Vol]Hemoglobin [Mass/volume] in Blood13.0-17.0[facility] HospitalLeukocytes [#/volume] corrected for nucleated erythrocytes in Blood by Automated counOrdered By: Kari Stafford on 37-64-5670IRH corrected for nucl RBC Auto (Bld) [#/Vol]Leukocytes [#/volume] corrected for nucleated erythrocytes in Blood by Automated counHigh4.1-10.5FSt. Rita's HospitalLymphocytes Auto (Bld) [#/Vol]Ordered By: Kari Stafford on 52-18-6410Kywxhuxaeoz (Bld) [#/Vol]Lymphocytes [#/volume] in Blood by Automated count1.00-4.8[facility] HospitalLymphocytes/100 WBC Auto (Bld)Ordered By: Kari Stafford on 44-35-8754Iezbdxqsorv/100 WBC (Bld)Lymphocytes/100 leukocytes in Blood by Automated count.[facility]own HospitalMCH Auto (RBC) [Entitic mass] Ordered By: Kari Stafford on 92-36-2807IQM (RBC) [Entitic mass]MCH [Entitic mass] by Automated count27.5-35.2FSt. Rita's HospitalMCHC Auto (RBC) [Mass/Vol]Ordered By: Kari Stafford on 92-20-2251GPTA (RBC) [Mass/Vol]MCHC [Mass/volume] by Automated count32.5-35.6FSt. Rita's HospitalMCV Auto (RBC) [Entitic vol]Ordered By: Kari Stafford on 01-35-4210OZR (RBC) [Entitic vol]MCV [Entitic volume] by Automated fymdlGky47.5-101M[facility]own HospitalMonocytes Auto (Bld) [#/Vol]Ordered By: Kari Stafford on 07-66-9252Tkhcyaike (Bld) [#/Vol]Automated blood monocyte count0.0-0.8[facility] HospitalMonocytes/100 WBC Auto (Bld)Ordered By: Kari Stafford on 68-12-4053Kpynliyuz/100 WBC (Bld)Automated monocyte %.[facility] HospitalNeutrophils Auto (Bld) [#/Vol]Ordered By: Kari Stafford on 12-16-2024 Neutrophils (Bld) [#/Vol]Neutrophils [#/volume] in Blood by Automated countHigh 1.8-7.7FSt. Rita's HospitalNeutrophils/100 WBC Auto (Bld)Ordered By: Kari Stafford on 89-02-3939Rqepqvkawwn/100 WBC (Bld)Automated neutrophil %. [facility]own HospitalNo Panel InformationOrdered By: Kair Stafford on 67-69-0799Lbicenule GFR (CKD-EPI)> 60.0 mL/MinMiddletown HospitalPharmacy Creatinine Clearance (ChemN/[facility] Nucleated erythrocytes [Presence] in Blood by Automated countOrdered By: Kari Stafford on 88-17-5372Nwsrcyikv RBC Auto Ql (Bld)Nucleated erythrocytes [Presence] in Blood by Automated count0-0.5FSt. Rita's HospitalPlatelet mean volume Auto (Bld) [Entitic vol]Ordered By: Kari Stafford on 13-18-2311Oifrigft mean volume (Bld) [Entitic vol]Platelet mean volume [Entitic volume] in Blood by Automated count6.6-10.1FSt. Rita's HospitalPlatelets Auto (Bld) [#/Vol]Ordered By: Kari Stafford on 80-17-2082Oyfcbqznz (Bld) [#/Vol]Platelets [#/volume] in Blood by Automated zarcc460-442NhdkswltwMiddletown Hospital Potassium [Moles/volume] in Serum or PlasmaOrdered By: Kari Stafford on 91-98-5673Njlehytty [Moles/Vol]Potassium [Moles/volume] in Serum or Plasma 3.5-5.1FSt. Rita's HospitalProtein [Mass/volume] in Serum or Plasma Ordered By: Kari Stafford on 75-59-2404Ivoclpw [Mass/Vol]Protein [Mass/volume] in Serum or Plasma6.4-8.9M[facility] HospitalRBC Auto (Bld) [#/Vol] Ordered By: Kari Stafford on 70-56-9305IMW (Bld) [#/Vol]Erythrocytes [#/volume] in Blood by Automated count3.90-5.60[facility] Warren Hospitalerum or plasma albumin/globulin mass ratioOrdered By: Kari Stafford on 12-16-2024 Albumin/Globulin [Mass ratio]Serum or plasma albumin/globulin mass ratio [facility] Warren Hospitalerum or plasma anion gap determinationOrdered By: Kari Stafford on 73-94-3786Hkqkw gap [Moles/Vol]Serum or plasma anion gap determination6.0-15.0[facility] Warren Hospitalodium [Moles/volume] in Serum or PlasmaOrdered By: Kari Stafford on 15-74-0135Eowfla [Moles/Vol]Sodium [Moles/volume] in Serum or FcbskqCuu098-035KnjhcgxcmMiddletown HospitalUrea nitrogen [Mass/volume] in Serum or PlasmaOrdered By: Kari Stafford on 60-27-8136Taef nitrogen [Mass/Vol]Urea nitrogen [Mass/volume] in Serum or Plasma 02-07M[facility]own HospitalWBC Auto (Bld) [#/Vol]Ordered By: Kari Stafford on 53-93-1482BFZ (Bld) [#/Vol]Leukocytes [#/volume] in Blood by Automated countHigh4.1-10.5FSt. Rita's HospitalAlanine aminotransferase [Enzymatic activity/volume] in Serum or PlasmaOrdered By: Carin Bajwa on 96-57-8244ISQ [Catalytic activity/Vol]24 U/L7-52M[facility] HospitalAlbumin [Mass/volume] in Serum or Plasma by Bromocresol green (BCG) dye binding methoOrdered By: Carin Bajwa on 81-29-0630Qqbwkvo BCG dye [Mass/Vol] 4.5 g/dL3.5-5.7FSt. Rita's HospitalAlkaline phosphatase [Enzymatic activity/volume] in Serum or PlasmaOrdered By: Carin Bajwa on 64-34-7593GXV [Catalytic activity/Vol]123 U/V12-689InkvmvgpnMiddletown HospitalAspartate aminotransferase [Enzymatic activity/volume] in Serum or PlasmaOrdered By: Carin Bajwa on 95-18-8853FAQ [Catalytic activity/Vol]17 U/U64-59TxanfywzbMiddletown HospitalBasophils Auto (Bld) [#/Vol]Ordered By: Carin Bajwa on 95-29-4579Dabdbkxov (Bld) [#/Vol]0.2 10*3/uL0.0-0.2FSt. Rita's HospitalBasophils/100 WBC Auto (Bld)Ordered By: Carin Bajwa on 06-14-2023 Basophils/100 WBC (Bld)1.3 %.[facility]own HospitalBilirubin.total [Mass/volume] in Serum or PlasmaOrdered By: Carin Bajwa on 06-14-2023 Bilirubin [Mass/Vol]0.4 mg/dL0.3-1.0M[facility] HospitalC reactive protein [Mass/volume] in Serum or PlasmaOrdered By: Carin Bajwa on 06-14-2023 CRP [Mass/Vol]3.6 mg/dL0.0-0.5FSt. Rita's HospitalCalcium [Mass/volume] in Serum or PlasmaOrdered By: Carin Bajwa on 56-70-5614Tqeppds [Mass/Vol]10.0 mg/dL8.6-10.3FSt. Rita's HospitalCarbon dioxide, total [Moles/volume] in Serum or PlasmaOrdered By: Carin Bajwa on 06-14-2023 CO2 [Moles/Vol]28.8 mmol/L21.0-31.0[facility] HospitalChloride [Moles/volume] in Serum or PlasmaOrdered By: Carin Bajwa on 06-14-2023 Chloride [Moles/Vol]97 mmol/C64-414CwrrhjqqiMiddletown HospitalCreatinine [Mass/volume] in Serum or PlasmaOrdered By: Carin Bajwa on 06-14-2023 Creatinine [Mass/Vol]0.65 mg/dL0.70-1.30[facility] Eosinophils Auto (Bld) [#/Vol]Ordered By: Carin Bajwa on 06-14-2023 Eosinophils (Bld) [#/Vol]0.3 10*3/uL0.0-0.45[facility] Eosinophils/100 WBC Auto (Bld)Ordered By: Carin Bajwa on 06-14-2023 Eosinophils/100 WBC (Bld)1.7 %.[facility] HospitalErythrocyte distribution width Auto (RBC) [Ratio]Ordered By: Carin Bajwa on 06-14-2023 Erythrocyte distribution width (RBC) [Ratio]14.6 %12.0-14.8[facility] HospitalErythrocyte sedimentation rate by Photometric methodOrdered By: Carin Bajwa on 99-86-4005NHW Photometric method (Bld) [Velocity]60 mm/hr0-14 [facility] HospitalGlobulin Calc (S) [Mass/Vol]Ordered By: Carin Bajwa on 58-45-4685Vwjilxrb (S) [Mass/Vol]2.9 g/dLMiddletown HospitalGlucose [Mass/volume] in Serum or PlasmaOrdered By: Carin Bajwa on 71-79-3636Xfjlzsw [Mass/Vol]134 mg/cV25-199BgpyajayhMiddletown Hospital Comment on above:ADA recommended reference rangeRandom Glucose Reference Range is dependent on time and content of last meal. Glucose of more than 200 mg/dL in a nonstressed, ambulatory subject supports the diagnosisof Diabetes Mellitus. Hematocrit Auto (Bld) [Volume fraction]Ordered By: Carin Bajwa on 06-14-2023 Hematocrit (Bld) [Volume fraction]41.7 %38.8-50.0[facility] HospitalHemoglobin [Mass/volume] in BloodOrdered By: Carin Bajwa on 06-14-2023 Hemoglobin (Bld) [Mass/Vol]13.7 g/dL13.0-17.0[facility] Leukocytes [#/volume] corrected for nucleated erythrocytes in Blood by Automated counOrdered By: Carin Bajwa on 45-11-0837XIE corrected for nucl RBC Auto (Bld) [#/Vol]15.1 10*3/uL4.1-10.5FSt. Rita's HospitalLymphocytes Auto (Bld) [#/Vol]Ordered By: Carin Bajwa on 01-14-2798Onsezgjcjdw (Bld) [#/Vol]1.7 10*3/uL1.00-4.8[facility] HospitalLymphocytes/100 WBC Auto (Bld)Ordered By: Carin Bajwa on 77-06-8168Oeegkeeyhyr/100 WBC (Bld)11.0 %.[facility] Auto (RBC) [Entitic mass]Ordered By: Carin Bajwa on 72-25-4123TZL (RBC) [Entitic mass]27.9 pg27.5-35.2FSt. Rita's HospitalMCHC Auto (RBC) [Mass/Vol]Ordered By: Carin Bajwa on 01-31-1926RURJ (RBC) [Mass/Vol]32.9 g/dL32.5-35.6FSt. Rita's HospitalMCV Auto (RBC) [Entitic vol]Ordered By: Carin Bajwa on 85-00-0167RZR (RBC) [Entitic vol]84.8 fL83.5-101M[facility] HospitalMonocytes Auto (Bld) [#/Vol]Ordered By: Carin Bajwa on 27-97-0046Efmoladol (Bld) [#/Vol]0.9 10*3/uL0.0-0.8[facility] HospitalMonocytes/100 WBC Auto (Bld)Ordered By: Carin Bajwa on 77-56-0349Yulpuiouf/100 WBC (Bld)5.8 %. [facility] HospitalNeutrophils Auto (Bld) [#/Vol]Ordered By: Carin Bajwa on 25-02-2522Ddkmcnfjgqu (Bld) [#/Vol]12.1 10*3/uL1.8-7.7 [facility] HospitalNeutrophils/100 WBC Auto (Bld)Ordered By: Carin Bajwa on 48-53-2056Ripzrwgddjc/100 WBC (Bld)80.2 %.[facility] HospitalNo Panel InformationOrdered By: Carin Bajwa on 06-14-2023 Estimated GFR (CKD-EPI)> 60.0 mL/MinMiddletown HospitalPharmacy Creatinine Clearance (ChemN/AFSt. Rita's HospitalNucleated erythrocytes [Presence] in Blood by Automated countOrdered By: Carin Bajwa on 46-31-9029Tvprrbftw RBC Auto Ql (Bld)0.1 /100{WBC}0-0.5FSt. Rita's HospitalPlatelet mean volume Auto (Bld) [Entitic vol]Ordered By: Carin Bajwa on 41-29-0580Gmgmhtyb mean volume (Bld) [Entitic vol]8.9 fL6.6-10.1 [facility] HospitalPlatelets Auto (Bld) [#/Vol]Ordered By: Carin Bajwa on 27-71-3626Qumkiaeep (Bld) [#/Vol]328 10*3/vO856-379ZdxvibclqMiddletown HospitalPotassium [Moles/volume] in Serum or PlasmaOrdered By: Carin Bajwa on 25-97-1292Qtarosawv [Moles/Vol]4.2 mmol/L3.5-5.1FSt. Rita's HospitalProtein [Mass/volume] in Serum or PlasmaOrdered By: Carin Bajwa on 82-08-6470Npwuytw [Mass/Vol]7.4 g/dL6.4-8.9[facility] RBC Auto (Bld) [#/Vol]Ordered By: Carin Bajwa on 32-73-1268SHY (Bld) [#/Vol] 4.92 10*6/uL3.90-5.60[facility] Hospitalerum or plasma albumin/globulin mass ratioOrdered By: Carin Bajwa on 06-14-2023 Albumin/Globulin [Mass ratio]1.6 {ratio}[facility] Hospitalerum or plasma anion gap determinationOrdered By: Carin Bajwa on 59-04-7441Crzxw gap [Moles/Vol]16.4 mmol/L6.0-15.0[facility] Hospitalodium [Moles/volume] in Serum or PlasmaOrdered By: Carin Bajwa on 60-87-0742Racovg [Moles/Vol]138 mmol/H927-348LqtgcgxvwMiddletown HospitalUrea nitrogen [Mass/volume] in Serum or PlasmaOrdered By: Carin Bajwa on 74-16-5318Wfsd nitrogen [Mass/Vol]10 mg/dL7-25M[facility]own HospitalWBC Auto (Bld) [#/Vol]Ordered By: Carin Bajwa on 94-26-8178EOV (Bld) [#/Vol]15.1 10*3/uL 4.1-10.5FSt. Rita's HospitalXR lumbar spine 6V w bendingon 40-32-1952FC lumbar spine 6V w bendingC[facility] Clinic [facility] [employer] Other XR lumbar spine 6V w bendingMonterey Park Hospital [employer] Other XR lumbar spine 6V w [id number] [place] [address] [employer] Other XR lumbar spine 6V w bendingMallie, [place] [address]Onetm [employer] Other XR lumbar spine 6V w bendingXRAdventHealth Brandon ER [employer] Other XR lumbar spine 6V w bendingSiUniversity Health [facility] [employer] Other XR lumbar spine 6V w bendingPatient: Lexa Bashir MR#: [id number] [employer] Other XR lumbar spine 6V w pppvmcl85Rxssi [employer] Other XR lumbar spine 6V w bendingDOB: 1980 Acct:[id number] [employer] Other XR lumbar spine 6V w bendingAge/Sex: 42 / M ADM Date: 03/14/23[place] [employer] Other XR lumbar spine 6V w bendingLoc: XD Room: Type: [facility] [employer] Other XR lumbar spine 6V w bendingAttending Dr: Marina Holt [facility]ENTERBlue [facility] Other XR lumbar spine 6V w bendingCopies to: Marina Holt, [facility] CENTERBlue Skies Networks Other XR lumbar spine 6V w bendingOrdering Provider: Marina Holt, [facility] CENTERBlue Skies Networks Other XR lumbar spine 6V w bendingDate of Service: 03/14/23 [employer] Other XR lumbar spine 6V w bendingAccession #: ([id number]) XR/XR lumbar spine 6V w bending: M54.50[facility] [email or web address] Other XR lumbar spine 6V w bendingLUMBAR SPINE - 7 views [employer] Other XR lumbar spine 6V w bendingCLINICAL HISTORY: Low back pain down left leg for 3 months.[employer] Other XR lumbar spine 6V w bendingCOMPARISON: Lumbar spine 01/12/2021[facility] [email or web address] Other XR lumbar spine 6V w bendingmaintained. No pathological motion on flexion or extension views. SI joints appear unremarkable.[employer] Other XR lumbar spine 6V w bendingORDER #: [id number] XR/XR lumbar spine 6V w bendingSt. Louis Va Medical [email or web address] Other xr lumbar spine 6V w bendingIMPRESSION:[employer] Other xr lumbar spine 6V w bendingNO ACUTE BONY PROCESS OR SIGNIFICANT DEGENERATIVE CHANGE.[employer] Other xr lumbar spine 6V w bendingImpression dictated by: Lexa Hooks Jr., DAnjelOAnjel03/14/2023 3:43 PMNMaimonides Midwood [facility] StoredIQ Other xr lumbar spine 6V w bendingDictation Location: HOUOR-FF-60Efnfz [employer] Other xr lumbar spine 6V w bendingTranscribed By: PWS 03/14/23 [facility] HospitalTranscend Medical [employer] Other xr lumbar spine 6V w bendingDictated By: Lexa Hooks Jr, DO 03/14/[address] [place] [address] [employer] Other xr lumbar spine 6V w bendingSigned By:Piqqual Other xr lumbar spine 6V w iztlkmi41/29/23 [facility] HospitalTranscend Medical Spark[employer] Other QUANTIFERON TB GOLD PLUS (NON-INC)on 99-87-0267Rxcimjv Incubation performed.[facility] Samaritan HospitalComment on above:Performed By: #### QNTTBG #### [facility] [address] [place] [address] Tiffanie KarenCriteriaCommentNoChillicothe HospitalComment on above:Result Comment: The QuantiFERON-TB Gold Plus result is determined by subtracting the Nil value from either TB antigen (Ag) tube. The mitogen tube serves as a control for the test.Performed By: #### QNTTBG #### [facility] [address] [place] [address] Tiffanie KarenMitogen Value>10.00NoChillicothe HospitalComment on above: Performed By: #### QNTTBG #### [facility] [address] [address] Tiffanie KarenNill Value0.13 IU/mLNormalOhioHealth Mansfield Hospital on above: Performed By: #### QNTTBG #### [facility] [address] [id number] Tiffanie KarenQuantiferon Gold PlusNegativeNormalNegativeParkview Health Bryan Hospital Comment on above:Result Comment: Chemiluminescence immunoassay methodology Performed By: #### QNTTBG #### [facility] [address] [address] Tiffanie KarenTB1 Ag Value0.12 IU/mLNormalParkview Health Bryan HospitalComc.s. [facility] on above: Performed By: #### QNTTBG #### [facility] [address] [id number] Tiffanie KarenTB2 Ag Value0.18 IU/mLNormalOhioHealth Mansfield Hospital on above: Performed By: #### QNTTBG #### [facility] [address] [place] [address] Tiffanie KarenTESTOSTERONE, TOTALon 78-13-3693Uliskwcyuixq [Mass/Vol]193 ng/dL Critically mhg904-558AoxParkview Health Bryan HospitalComment on above:Result Comment: Adult male reference interval is based on a population of healthy nonobese males (BMI <30) between 19 and 39 years old. Cash et.al. JCEM 2017,102;9697-1923. PMID: [id number]. Please note reference interval changePerformed By: #### TESTTOT #### [facility] [address] [place] [address] Tiffanie KarenFREE THYROXINE INDEX T7on 04-08-6285NBN5.02NormalThe [facility]ton HospitalComment on above:Performed By: #### T7, TSH #### [facility] [address] [place], [place] [address] Tiffanie PnussK7B12.0 %Gofvfl44.5-40.5The [facility] on above: Performed By: #### T7, TSH #### [facility] [address] [place] [address] Tiffanie KarenT4 [Mass/Vol]5.60 ug/dLNormal5.53-11.00The [facility] HospitalComment on above:Performed By: #### T7, TSH #### [facility] [address] [place] [address] Tiffanie ParkerHon 42-54-8886EBZ9.123 uIU/mLNormal0.470-4.680The [facility] HospitalComment on above:Performed By: #### T7, TSH #### [facility] [address] [place] [address] Tiffanie KarenTSH RANGESEE BELOWNormalThe [facility] HospitalComment on above:Result Comment: <0.34 UIU/ml HYPERTHYROID 0.34-5.60 UIU/ml EUTHYROID >5.60 UIU/ml HYPOTHYROIDPerformed By: #### T7, TSH #### [facility] [address] [place] [address] Tiffanie KarenINSULINon 58-14-4215Tcbmwem28.0 uIU/mLCritically high2.6-24.9Park[facility] Health Bryan HospitalComment on above:Performed By: #### INSULIN #### [facility] [address] [place] [address] Tiffanie KarenCBC AUTO DIFFon 54-35-3929WYDN #0.1 103/ulNormal0.0-0.1Park[facility] Health Bryan HospitalComment on above:Performed By: #### CBC #### [facility] [address] [place] [address] Tiffanie KarenBasophils/100 WBC (Bld)0.7 %Normal0.2-2.0[facility] Comment on above:Performed By: #### CBC #### [facility] [address] [place] [address] Tiffanie KarenEO #0.2 103/ulNormal0.0-0.7The [facility] on above: Performed By: #### CBC #### [facility] [address] [place] [address] Tiffanie KarenEosinophils/100 WBC (Bld)1.8 %Normal0.9-7.0[facility] Comment on above:Performed By: #### CBC #### [facility] [address] [place] [address] Tiffanie KarenErythrocyte distribution width (RBC) [Ratio]13.3 %Xzvbqn59.0-15.0The [facility] on above:Performed By: #### CBC #### [facility] [address] [place] [address] Tiffanie KarenHematocrit (Bld) [Volume fraction]44.2 %Eshlyf05.0-54.0The [facility] HospitalComment on above:Performed By: #### CBC #### [facility] [address] [place] [address] Tiffanie KarenHemoglobin (Bld) [Mass/Vol]14.4 g/iXEpyawo55.0-18.0The [facility] HospitalComment on above:Performed By: #### CBC #### [facility] [address] [place] [address] Tiffanie KarenIG #0.05 10e3/ulCritically high0.00-0.03The [facility] HospitalComc.s. [facility] on above:Performed By: #### CBC #### [facility] [address] [place] [address] Tiffanie KarenIG %0.4 %Normal0.0-0.5The [facility] HospitalComc.s. [facility] on above: Performed By: #### CBC #### [facility] [address] [place] [address] Tiffanie KarenLYMPH #1.7 103/ulNormal1.2-3.8The [facility] HospitalComment on above: Performed By: #### CBC #### [facility] [address] [place] [address] Tiffanie KarenLymphocytes/100 WBC (Bld)14.4 %Critically low20.5-60.0The [facility] HospitalComc.s. [facility] on above:Performed By: #### CBC #### [facility] [address] [place] [address] Tiffanie KarenMANUAL DIFF REQNONormalThe [facility] HospitalComment on above: Performed By: #### CBC #### [facility] [address] [address] Tiffanie StewardMCH (RBC) [Entitic mass]28.5 hsVvxthu87.9-34.0The [facility] Comment on above:Performed By: #### CBC #### [facility] [address] [place] [address] Tiffanie StewardMCHC (RBC) [Mass/Vol]32.6 g/xUSmsutr67.9-35.2The [facility] Comment on above:Performed By: #### CBC #### [facility] [address] [place] [address] Tiffanie StewardMCV (RBC) [Entitic vol]87.5 oDIpmkvb48.0-94.0The [facility] Comment on above:Performed By: #### CBC #### [facility] [address] [place] [address] Tiffanie KarenMONO #0.7 103/ulNormal0.3-0.8The [facility] HospitalComment on above: Performed By: #### CBC #### [facility] [address] [place] [address] Tiffanie KarenMonocytes/100 WBC (Bld)6.1 %Normal1.7-12.0The [facility] Comment on above:Performed By: #### CBC #### [facility] [address] [place] [address] Tiffanie KarenNEUT #9.0 103/ulCritically high1.4-6.5The [facility] HospitalComment on above:Performed By: #### CBC #### [facility] [address] [place] [address] Tiffanie KarenNeutrophils/100 WBC (Bld)76.6 %Critically high43.0-75.0The [facility] HospitalComment on above:Performed By: #### CBC #### [facility] [address] [place] [address] Tiffanie KarenPlatelet mean volume (Bld) [Entitic vol]10.4 fLNormal9.5-13.5The [facility] HospitalComment on above:Performed By: #### CBC #### [facility] [address] [address] Tiffanie XaquzHIM836 103/ngHkxgpe803-565Pze [facility] HospitalComment on above: Performed By: #### CBC #### [facility] [address] [address] Tiffanie KarenRBC5.05 106/ulNormal4.70-6.10The [facility] HospitalComment on above: Performed By: #### CBC #### [facility] [address] [address] Tiffanie QbbknDZW80.8 103/ulCritically high4.0-11.0The [facility] HospitalComment on above:Performed By: #### CBC #### [facility] [address] [place] [address] Tiffanie KarenGLYCOHEMOGLOBIN A1Con 72-96-4311QYR RECOMMENDATIONADA THERAPEUTIC TARGET 6.0 - 7.0 ACTION SUGGESTED > 7.0NoChillicothe HospitalComment on above:Performed By: #### A1C #### [facility] [address] [place] [address] Tiffanie KarenGlucose [Mass/Vol]105 mg/dLNoChillicothe HospitalComment on above:Performed By: #### A1C #### [facility] [address] [place] [address] Tiffanie LgwxyHwK3l (Bld) [Mass fraction]5.3 %Normal<=6.0[facility] Comment on above:Performed By: #### A1C #### [facility] [address] [place] [address] Tiffanie KarenLIPID PROFILEon 97-33-7009RUDG-HDL RATIO NORMSEE BELOWGood Samaritan HospitalComment on above:Result Comment: 3.3 - 4.4 LOW RISK 4.4 - 7.1 AVERAGE RISK 7.1 - 11.0 MODERATE RISK >11.0 HIGH RISKPerformed By: #### CMP, LIPID #### [facility] [address] [place] [address] Tiffanie KarenCholesterol [Mass/Vol]231 mg/dLCritically high<=200Park[facility] HospitalComment on above:Performed By: #### CMP, LIPID #### [facility] [address] [place] [address] Tiffanie KarenCholesterol in HDL [Mass/Vol]40 mg/dLGood Samaritan Hospital Comment on above:Performed By: #### CMP, LIPID #### [facility] [address] [address] Tiffanie KarenCholesterol in LDL [Mass/Vol]123.0 mg/dLGood Samaritan Hospital Comment on above:Performed By: #### CMP, LIPID #### [facility] [address] [place] [address] Tiffanie KarenCholesterol.total/Cholesterol in HDL [Mass ratio]5.8 {ratio}Normal The [facility] HospitalComc.[facility]. [facility] on above:Performed By: #### CMP, LIPID #### [facility] [address] [place] [address] Tiffanie KarenHDL NORMAL> or = 60 mg/dl - LOW CARDIOVASCULAR RISK <40 mg/dl - HIGH CARDIOVASCULAR RISKGood Samaritan HospitalComment on above:Performed By: #### CMP, LIPID #### [facility] [address] [place] [address] Tiffanie KarenLDL CALC NORMALSEE BELOWGood Samaritan HospitalComc.s. [facility] on above: Result Comment: <100 mg/dl OPTIMAL 100 - 129 mg/dl NEAR OR ABOVE OPTIMAL 130 - 159 mg/dl BORDERLINE HIGH 160 - 189 mg/dl HIGH >190 mg/dl VERY HIGHPerformed By: #### CMP, LIPID #### [facility] [address] [place] [address] Tiffanie KarenTriglyceride [Mass/Vol]340 mg/dLCritically high<=150[facility] HospitalComc.s. [facility] on above:Performed By: #### CMP, LIPID #### [facility] [address] [place] [address] Tiffanie KarenVLDL CALC68.0 mg/dLGood Samaritan HospitalComment on above: Performed By: #### CMP, LIPID #### [facility] [address] [address] Tiffanie KarenPROF 14(COMP METB)on 33-70-7870Jzvyjtw [Mass/Vol]3.8 g/dLNormal 3.5-5.0Park[facility] HospitalComment on above:Performed By: #### CMP, LIPID #### [facility] [address] [place] [address] Tiffanie KarenAlbumin/Globulin [Mass ratio]0.8 {ratio}NormalParkview Health Bryan Hospital Comment on above:Performed By: #### CMP, LIPID #### [facility] [address] [place] [address] Tiffanie KarenALP [Catalytic activity/Vol]136 U/LCritically nluw84-545Glf [facility] HospitalComment on above:Performed By: #### CMP, LIPID #### [facility] [address] [place] [address] Tiffanie KarenALT [Catalytic activity/Vol]43 U/GVmghdi34-15Sqb [facility] Comment on above:Performed By: #### CMP, LIPID #### [facility] [address] [place] [address] Tiffanie KarenAnion gap [Moles/Vol]13.0 mmol/LNormalThe [facility] HospitalComment on above:Performed By: #### CMP, LIPID #### [facility] [address] [place] [address] Tiffanie KarenAST [Catalytic activity/Vol]21 U/NAlfhfg98-46Pdl [facility] Comment on above:Performed By: #### CMP, LIPID #### [facility] [address] [place] [address] Tiffanie KarenBilirubin [Mass/Vol]0.4 mg/dLNormal0.2-1.3The [facility] Comment on above:Performed By: #### CMP, LIPID #### [facility] [address] [place] [address] Tiffanie KarenCalcium [Mass/Vol]9.6 mg/dLNormal8.4-10.2[facility] Comment on above:Performed By: #### CMP, LIPID #### [facility] [address] [address] Tiffanie KarenChloride [Moles/Vol]101 mmol/QHihfgn28-726JswParkview Health Bryan Hospital Comment on above:Performed By: #### CMP, LIPID #### [facility] [address] [address] Tiffanie KarenCO2 [Moles/Vol]27.6 mmol/KLeodip49.0-30.0[facility] Comment on above:Performed By: #### CMP, LIPID #### [facility] [address] [address] Tiffanie KarenCreatinine [Mass/Vol]0.90 mg/dLNormal0.66-1.25ThOhioHealth O'Bleness Hospital Comment on above:Performed By: #### CMP, LIPID #### [facility] [address] [place] [address] Tiffanie KarenEGFR-AF GUAMANIAN>60Normal>=60The [facility] HospitalComment on above: Performed By: #### CMP, LIPID #### [facility] [address] [place] [address] Tiffanie KarenEGFR-NON AF GUAMANIAN>60Normal>=60Park[facility] Health Bryan HospitalComment on above:Performed By: #### CMP, LIPID #### [facility] [address] [address] Tiffanie KarenGlobulin (S) [Mass/Vol]4.7 g/dLNormalThOhioHealth O'Bleness HospitalComment on above:Performed By: #### CMP, LIPID #### [facility] [address] [place] [address] Tiffanie KarenGlucose [Mass/Vol]117 mg/dLCritically surg11-014CivParkview Health Bryan HospitalComment on above:Performed By: #### CMP, LIPID #### [facility] [address] [place] [address] Tiffanie KarenPotassium [Moles/Vol]3.6 mmol/LNormal3.4-5.0[facility] Comment on above:Performed By: #### CMP, LIPID #### [facility] [address] [place], [place] [address] Tiffanie KarenProtein [Mass/Vol]8.5 g/dLCritically high6.1-8.2The [facility] HospitalComment on above:Performed By: #### CMP, LIPID #### [facility] [address] [place], [place] [address] Tiffanie KarenSodium [Moles/Vol]138 mmol/ZYtzcoa342-206Qry [facility] Comment on above:Performed By: #### CMP, LIPID #### [facility] [address] [place], [place] [address] Tiffanie KarenUrea nitrogen [Mass/Vol]7.0 mg/dLCritically low9.0-20.0The [facility] HospitalComment on above:Performed By: #### CMP, LIPID #### [facility] [address] [place], [place] [address] Tiffanie KarenUrea nitrogen/Creatinine [Mass ratio]7.8 mg/mgNormalThe [facility] HospitalComment on above:Performed By: #### CMP, LIPID #### [facility] [address] [place], [place] [address] Tiffanie Nichelle Vital Signs Date TimeVital SignValuePerforming DjarsumhcDfekmtpz00-74-1431 09:42-0500Body ynstzu820.18 cmNP-Aki Palafox Work Phone: [facility]02-13-2024 09:42-0500 Body mass index (BMI) [Ratio]66.1 kg/m2NP-Aki Palafox Work Phone: [facility]02-13-2024 09:42-0500 Body dhynuw114.41 kgNP-C Hortencia Palafox Work Phone: [phone]02-13-2024 09:42-0500 Heart axvc949 /minNP-Aki Palafox Work Phone: [phone] [place], [place] [address]102-13-2024 09:42-0500 SaO2% (BldA) [Mass fraction]98 %METAL FURNITURE ASSEMBLER-C Hortencia Palafox Work Phone: [facility]12-14-2023 14:00-0500 Body mokkjj168.18 cmJessica [employer] Other [facility]12-14-2023 14:00-0500 Body mass index (BMI) [Ratio]64.05 kg/y3Hsxyhdn [employer] Other [place] [employer] Other 12-14-2023 14:00-0500Body rijeda019.52 kgJessica [employer] Other [place] [employer] Other 12-14-2023 14:00-0500Body dvbree208.51 kgNP-C Hortencia Bridgette Work Phone: [facility]12-14-2023 14:00-0500 Respiratory rate18 /minJessica [employer] Other [place] [employer] Other 12-14-2023 14:00-9432LbE0% (BldA) [Mass fraction]92 % Marina [employer] Other [employer] Other 08-29-2023 13:00-0400Body mvwiwk706.18 cmJessica [employer] Other [employer] Other 08-29-2023 13:00-0400Body mass index (BMI) [Ratio] 58.57 kg/t1Jcbhjyc [employer] Other [employer] Other 08-29-2023 13:00-0400Body .65 kgJessica [employer] Other [employer] Other Encounters Encounter DateEncounter TypeCare ProviderFacilityStart: 04-02-2025 End: 67-89-2978Suutcwq encounter procedureKari ASHFORDC-Lab [address] Work Phone: Start: 04-02-2025 End: 60-87-5582xnghvosdyqWsngbv Jennifer Brunsonmer METAL FURNITURE ASSEMBLER-C Work Phone: [facility] Work Phone: Start: 03-22-2025 End: 92-39-0112Xllotz encounterEmma Jewell BOX 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Work Phone: [facility]Start: 12-16-2024 End: 50-66-7156Krraskl encounter procedurePasunil Palafox METAL FURNITURE ASSEMBLER-C Work Phone: [facility] [address] Work Phone: Start: 12-16-2024 End: 71-18-8415wsrolisrmmEyboam Jennifer Bridgette METAL FURNITURE ASSEMBLER-C Work Phone: [facility] Work Phone: Start: 76-03-6519Wmhidp encounterMETROHEALTH SYSTEM Work Phone: Start: 08-29-2023 End: 04-16-0348fnybepphniSF-C Hortencia Brunsonmer Work Phone: [facility] Work Phone: Start: 08-29-2023 End: 94-06-9026Wjnjyyw encounter procedureNP-C Hortencia Palafox Work Phone: [facility] Work Phone: Start: 06-29-2023 End: 35-42-4642knevzgurujGxtwrss [employer] Other [place] [employer] Other start: 54-43-7565Oinywh outpatient visit 25 minutes Marina [facility]Mc[facility] NeurosurgeryStart: 06-29-2023 End: 19-71-7761Ljgrqmu encounter procedureNP-C Hortencia Palafox Work Phone: [facility] Work Phone: start: 04-34-9629Owcyri encounterEmma Jewell BOX 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Work Phone: [facility]Start: 06-14-2023 End: 46-05-8393Ilnzqme encounter procedureNP-C Hortencia Palafox Work Phone: [facility] [address] Work Phone: Start: 03-30-2023 End: 35-36-6844cucgifofkzOnwdwuq Springer Other [facility] [employer] Other start: 03-61-2973Qutsclhfs encounterJeECU Health [facility] NeurosurgeryStart: 03-14-2023 End: 32-39-2214Jrahqqk encounter procedureNP-Aki Palafox Work Phone: [facility] [address] Work Phone: Start: 03-14-2023 End: 25-69-2277crktvzejvhWW-C Hortencia Palafox Work Phone: [facility] Work Phone: Start: 78-61-1861Ecqlej outpatient new 45 minutes Marina HoltMcK[facility] NeurosurgeryStart: 02-13-2023 End: 38-22-8128auwumyjzirNuxjtsy Vytautas Giedraitis MDFacility:PM [place] Start: 01-30-2023 End: 31-24-9820tvtacafwquYpdajgq Vytautas Giedraitis MDFacility:[facility] [place] Start: 01-16-2023 End: 70-48-6453zngsyhbtboPhjiboh Vytautas Giedraitis MDFacility:[facility] [place] Start: 96-46-3717Opojqh encounterEmma Shaneramsey BOX 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Work Phone: [facility]HealthStart: 69-19-1332aosweqoeikKK CARIN BAJWAFacility:L6Fpjbq: 84-66-6203qhlhiyhskfMDFQZD ALLENFacility:P7Pkbqo: 02-25-2021 End: 44-12-6000nvuhjxvvibVO CARIN BAJWAFacility:C6Jalwl: 49-21-1271Ntpimfxel for general adult medical examination without abnormal findingsHORTENCIA Foley HospitalStart: 12-10-2020 End: 64-65-9097etxmfhaeycHGNMUM ALLENFacility:H3Luuzt: 12-10-2020 End: 77-68-0767Wijgyekuu for general adult medical examination without abnormal findingsHORTENCIA MORANFacility:I5Imxzh: 11-28-2020 End: 78-42-0154iibvuytbplLZGHYP ALLENFacility:G1Iuxhy: 76-61-1288xgkvnltdui HORTENCIA MORANFacility:H1 Procedures DateProcedureProcedure DetailPerforming ClinicianStart: 01-93-1931B-ray of lumbar spine, six views including bending viewsNP-C Hortencia Palafox Work Phone: Plan of Treatment DateCare ActivityDetailAuthorStart: 12-33-2667Zjkmvifr (RZV) Vaccine (1 of 2) Shingles (RZV) Vaccine (1 of 2)[facility]HealthStart: 55-82-8829Xckwyzvex vaccination Influenza Vaccine (#1)[facility]HealthStart: 48-18-9634HTYBC-19 Vaccine ( season)COVID-19 Vaccine ( season)[facility]HealthStart: 2024 Screening for malignant neoplasm of colonMetroHealthStart: 65-29-2015Kwknzsdzb vaccinationInfluenza Vaccine (#1)[facility]HealthStart: 58-87-4348Sqrvgzmyx vaccinationInfluenza Vaccine (#1)[facility]HealthStart: 17-55-8494Rndap panel CholesterolMetroHealthStart: 05-98-2079Rfpge metabolic 2000 panel - Serum or PlasmaBasic Metabolic PanelMetroHealthStart: 35-88-0137Riakvdvrwc measurement Basic Metabolic PanelMetroHealthStart: 42-13-4834NTY Vaccine (optional start 27- 45 years)HPV Vaccine (optional start 27-45 years)[facility]HealthStart: 1998 Hepatitis A (HAV) Vaccine (optional start 19+ years)Hepatitis A (HAV) Vaccine (optional start 19+ years)[facility]GR[facility] SYSTEMStart: 40-62-4791Ytfxgqved B vaccinationHepatitis B (HBV) Vaccine (1 of 3 - 19+ 3-dose series)[facility] Start: 23-19-2736Uzfjkrl vaccinationTetanus (Td or Tdap) BoosterMetroHealth Start: 26-56-2373Vmqofyeon C screeningHepatitis C AntibodyMetroHealthStart: 09-06-9234AAUSR-19 Vaccine (#1)COVID-19 Vaccine (#1)[facility]HealthStart: 1979 Hepatitis B vaccinationHepatitis B (HBV) Vaccine (1 of 3 - 3-dose series) [facility]GR[facility] SYSTEMStart: 09-48-0689Zrldushbh for malignant neoplasm of colon ColonoscopyMetroWooster Community Hospital Payers DatePayer CategoryPayerPolicy [id number] [id number] 2025 [id number]-[id number] Cross Blue Shield ANTHEM - BLUE CROSS [id number] 1.840.239595.1..56.2.7.3.630[id number] .1.857027.3.57[id number] 2.16.840.1.982007.3.57[id number] 2.16.840.1.348539.3.57[id number] 2.16.840.1.273994.3.579.[id number] 2.16.840.1.231093.3.57[id number] 2.16.840.1.573791.3.57[id number] 2.16.840.1.091833.3.57[id number] 2.16.840.1.309594.3.57[id number] 2.16.840.1.431864.3.579.2.75276-28-4023Qjvc-qqe86269878827-46-9378Zcrkvrj [id number] 2.16.840.1.2[id number] 2.16.840.1.912700.3.579.2.531 Social History DateTypeDetailFacilityStart: 39-18-6033Qfibctw smoking status NHISNever smoked tobaccoMetroHealthStart: 73-15-0213Ixjbmdt intakeCurrent drinker of alcohol (finding)[facility]roHealthStart: 07-91-7760Soyaaka Comment6-10 BEER DAILYMetroHealth Start: 23-37-2713Imp Assigned At BirthNot on fileMetroHealthStart: 78-47-2402Hnn Assigned At [facility] Hospitaltart: 66-31-0421Idx Assigned At [facility] [employer] Other start: 99-34-6223Vebkcpf of Social functionMETROHEALTH SYSTEM Work Phone: Tobacco smoking status NHISUnknown if ever smoked [facility] Work Phone: Start: 02-18-2013 End: 30-15-6877TnhWult (finding)[facility] Hospitaltart: 99-13-5447Vdrofum of drug misuse behaviorDoes not misuse drugs (situation) [facility]HealthStart: 56-57-2628Yeyytoc of sexual behaviorSexually activeMetroHealth Goals DatePatient GoalDesired Activity/StatePersonal health goal Evaluation note 06-29-2023 Note Date & VbpuFisbNgvgzmjp05-93-5623 Evaluation note* Encounter Date Diagnosis Assessment Notes Treatment Notes Treatment Clinical Notes Jun, Left lumbar radiculopathy (ICD-1 0 - M54.16) I independently reviewed the x-ray [...] to Dr Callahan. Follow-up in 12 weeks. Jun,Lumbosacral radiculopathy at S1 (ICD-10 - M54.17) Jun,Rheumatoid arthritis involving multiple sites, unspecified whether rheumatoid factor present (ICD-10 - M06.9) [facility] Other Evaluation note 03-14-2023 Note Date & [id number] Evaluation note* Encounter Date Diagnosis Assessment Notes Treatment Notes Treatment Clinical Notes Feb, Lumbar pain (ICD-10 - M54.50) Independently reviewed the x-ray and MRI of the lumbar spine and which shows multilevel spondyliticchanges superimposed on congenitally shortened pedicles and epidural lipomatosis. Mild bilateral facet and ligamentum flavum hypertrophy. Discussion with Dr. Felix in which patient is not a surgical c andidate at this time. Patient is currently having S1 radicular symptoms, upon examination patient may benefit from piriformis injection and posterior hip injection. Pharmacological management patient will continue with current medication as prescribed. Advised to stop pain medication, Hydrocodone.Will order prednisone taper. Follow-up in 12 weeks. Feb,Epidural lipomatosis (ICD-10 - D17.79) Feb,Spinal stenosis of lumbar region with neurogenic claudication (ICD- 10 - M48.062) Feb,Obesity, morbid, BMI 50 or higher (ICD-10 - E66.01)Education completed on diet, exercise, sugary and caloric intake. Education on 1lb weight has 4lbs of pressure to the spine. States he was borderline Diabetic A1C 6. Patient would benefit from weight management. Discussion of ozempic/semaglutide. WIll follow up with PCP Dr Palafox. [facility] Other Clinical Note 03-14-2023 Note Date & OminNjgtYkusbxgb41-08-5621 NoteFINDINGS: Suboptimal evaluation due to body habitus. Vertebral body and disc space heights appearNort [employer] Other Evaluation note Note Date & TypeNoteFacilityEvaluation noteNo assessment information available [facility] [employer] Work Phone: Evaluation note Note Date & TypeNoteFacilityEvaluation noteNo InformationNodoctors hospital of [place] Other History general Narrative - Reported Note Date & TypeNoteFacilityHistory general Narrative - Reported* Type Description Date Medical History HTN (hypertension) Medical HistoryGERD (gastroesophageal reflux disease)Medical HistoryAnxiety Medical Historydiabetes mallitusMedical Historyhigh cholesterolMedical History kidney diseaseMedical HistoryobesityMedical Historypsychiatric disorderSurgical Historyfracture repair right ankleHospitalization Historysee above [facility] Other Reason for referral (narrative) Note Date & TypeNoteFacilityReason for referral (narrative)No reason for referral information availableSouth[facility] Center [facility] Work Phone: Summary Purpose Family History No Family History Records Found Relationship Condition Age at Onset Recorded Date/T omid father Hypertension Unknown Advance Directives No Advanced Directives Records Found Advance Directive Response Recorded Date/ Time Advance [...] section and content) DATE CREATED AUTHOR 08/27/2021 [facility] DATE CREATED AUTHOR AUTHOR'S ORGANIZ ATION 03/07/2023 [facility] DATE CREATED AUTHOR AUTHOR'S ORGANIZ ATION 04/21/2025 [facility] Care Teams (unrecognized sec tion and content) Team MemberRelationshipSpecialtyStart DateEnd Date Emma Jewell, BOX 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[address] [address] [facility] Lpnanitf37/20/13 Team Status: Active Member Role Status Dates JD Stone Primary Care Provider Active Team Status: Inactive Member Role Status Dates JD Stone Primary Care Provider Active Feliz Snowden ProviderActiveTeam MemberRelationshipSpecialty Start DateEnd Date Emma Jewell, BOX 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[address] [address] [facility]CP - [facility] Rldzshup22/20/13 Team Status: Inactive Member Role Status Dates JD Stone Primary Care Provider Active Start: June 14, 2023 End: June 14, 2023Patricio Ordoñez ProviderActiveStart: June 14, 2023 End: June 14, 2023 Team Status: Inactive Member Role Status Dates JD Snowden Attending Provider Active Start: June 29, 2023 End: June 29, 2023 Team Status: Inactive Member Role Status Dates JD Stone Primary Care Provider Active Start: August 29, 2023 End: August 29, 2023Dimitri Kvng Callahan MDAttending ProviderActiveStart: August 29, 2023 End: August 29, 2023 Team Status: Inactive Member Role Status Dates JD Stone Primary Care Provider Active Start: December 16, 2024 End: December 16Feliz Chatman ProviderActiveStart: December 16, 2024 End: December 16, 2024Team MemberRelationshipSpecialtyStart DateEnd Date Emma Jewell, BOX 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[address] [place] [address] PCP - [facility] Siozxodu49/20/13 Team Status: Inactive Member Role Status Dates JD Stone Primary Care Provider Active Start: April 02, 2025 End: April 02Feliz Chatman ProviderActiveStart: April 02, 2025 End: April 02, 2025 Goals (unrecognized section and content) Goals may be documented in a n alternate sectionNo InformationNo InformationNo InformationGoals may be documented in an alternate sectionGoals may be documented in an alternate sectionGoals may be documented in an alternate section [...] BE BASED ON THE PRIMARY CLINICAL RECORDS. [facility] [employer] provides no warranty or guarantee of the accuracy or completeness of information in this document.
--- OUTSIDE RECORDS SUMMARY | 2025-06-04 14:18 | XMS_ITS | Clinical Summary ---
Author Organization [facility] Address [address] [place] [address] Care Team Providers Care Corporate Securities Research Analyst Name Role Phone Unavailable Primary Care Provider Unavailabl e Allergies No known active allergies Medications MedicationSigDispense QuantityRefillsLast FilledStart DateEnd DateStatus OMEPRAZOLE (PRILOSEC ORAL) Take by mouth.Active oxyCODONE-acetaminophen 5-325 mg tablet Take 1 tablet by mouth every 4 hours as needed for Pain. 20 tablet ctive Social History Tobacco UseTypesPacks/DayYears UsedDateSmoking Tobacco: Every DayCigars Comments:Rare cigar - maybe once/year Alcohol UseStandard Drinks/IeziZziawvmrAxv49 (1 standard drink = 0.6 oz pure alcohol)Sex and Gender InformationValueDate RecordedSex Assigned at BirthNot on fileLegal XfxDqvw88/02/2012 11:14 AM ESTGender IdentityNot on fileSexual OrientationNot on fileOccupationIndustryJob Start DateJob End Datebuilding maintainenceNot on fileNot on fileNot on file Last Filed Vital Signs Vital SignReadingTime TakenCommentsBlood Pbpqhpkr331/9207 11:55 AM EDT Noixw5570 11:55 AM GAWUjezzvnysrk84.6 ??C (97.9 ??F)01/25/2012 9:58 AM EDTRespiratory Cruy1680 11:55 AM EDTOxygen Ujguqywlxb647%01/25/2012 11:55 AM EDTInhaled Oxygen Concentration--Fcshps878.1 kg (245 lb)01/25/2012 9:58 AM VKSYglash206.2 cm (5' 7 )01/25/2012 9:58 AM EDTBody Mass Index38.37001/25/2012 9:58 AM EDT Plan of Treatment Health MaintenanceDue DateLast DoneCommentsAnxiety Nyjtbuaxu45/05/1997Depression Lqwdawwrr43/05/1997HIV Cikwbmgmh84/05/1997Hepatitis C Miwtxhnfd75/05/1997 DTaP,Tdap,Td Vaccine (1 - Tdap)1998Hepatitis B Vaccine (1 of 3 - 19+ 3- dose series)1998Lipid Fyjniooel57CT Colonography 4Cologuard (FIT-DNA)03/21/20245483Kukpgwgpleg40/05/2024olorectal Cancer Hklyefgrc72/05/2024iabetes Jdwyeqgnk33Fecal Occult Blood 03/21/20249862Tcaebriglqgxt43/05/2024ovid-19 Vaccine ( season)2025 Influenza Vaccine (#1)2025 Procedures Procedure NamePriorityDate/TimeAssociated DiagnosisCommentsCOMPREHENSIVE METABOLIC PANEL09/03/2009 11:05 AM EST LIPID PANEL, YNANOZM1709/03/2009 11:05 AM EST from Last 3 Months or Most Recently Relevant to Health Maintenance Results * (ABNORMAL) LIPID PANEL BASIC (09/03/2009 11:05 AM EST)ComponentValueRef Range Test MethodAnalysis TimePerformed AtPathologist SignatureCholesterol, Fyyie761 (H)125 - 200 MG/DLQUESTHDL Opcsvkrpvgg57(L)> OR = 40 MG/DLQUESTCholesterol/HDL Ratio8.2(H)< OR = 5.0QUESTLDL Ruzftgsbrp633(H)<130 MG/DLQUESTComment: ?LDL-CHOLESTEROL ? RISK CATEGORY* ? GOAL VERY HIGH (E.G. DIABETES + CVD) <70 MG/DL HIGH (DIABETICS; CHD RISK EQUIVALENTS) <100 MG/DL MODERATELY HIGH (MULTIPLE(2+) RISK FACTORS) <130 MG/DL 0 TO 1 RISK FACTORS <160 MG/DL ? * NCEP REPORT. CIRCULATION 2004; 110: 227-239 Fspighmzcjih521(H)<150 MG/DLQUESTComment: Test Performed at: [facility] [address] [place] [address];[address] [place] [address] ??[id number] JUSTIN MORAN M.D. Specimen (Source)Anatomical Location / LateralityCollection Method / Volume Collection TimeReceived Time09/03/2009 11:05 AM EST Narrative Authorizing ProviderResult TypeResult Cruz Sanders MDLABORATORYFinal ResultPerforming OrganizationAddressCity/State/ZIP CodePhone Number [facility] [phone] [place] [address] * (ABNORMAL) COMP METABOLIC PANEL (09/03/2009 11:05 AM EST)ComponentValueRef RangeTest MethodAnalysis TimePerformed AtPathologist PlhppzabxSdhlsu496144 - 146 MMOL/LQUESTPotassium4.63.5 - 5.3 MMOL/MYPUXNFvhrytxw34116 - 110 MMOL/L YNRCLDU44362 - 33 MMOL/BPDGXHEyitdtk73.3(H)8.6 - 10.2 MG/DLQUESTComment: THE ABOVE TEST WAS PERFORMED; HOWEVER THE SPECIMEN WAS HEMOLYZED. Alkaline Lochfotorwj3013 - 115 U/WLNBEBJGH5160 - 40 U/XGJDGXYVU024 - 60 U/LQUEST Bilirubin, Total0.50.2 - 1.2 MG/NBHZJZMEwelqaj678(H)65 - 99 MG/DLQUESTComment: GLUCOSE REFERENCE RANGE BASED ON FASTING SPECIMEN.Urea Nitrogen, Ksxcp772 - 25 MG/DLQUESTCreatinine0.950.79 - 1.33 MG/DLQUESTBUN/Creat Ratio13.96 - 22QUEST Protein, Total7.96.2 - 8.3 G/DLQUESTAlbumin5.03.6 - 5.1 G/DLQUESTGlobulin, Total 2.92.1 - 3.7 G/DLQUESTA/G Ratio (Electro)1.81.0 - 2.1QUESTEst GFR Non->60> OR = 60 ML/MIN/1.82D4UUZOTwPAH-Clcunwg American>60> OR = 60 ML/MIN/1.25E5LDCCZLwdqzzy: Test Performed at: [facility];[address] [place] [address], [place] ??[id number] JUSTIN MORAN M.D. Specimen (Source)Anatomical Location / LateralityCollection Method / Volume Collection TimeReceived Time09/03/2009 11:05 AM EST Narrative Authorizing ProviderResult TypeResult StatusIsi Sanders MDLABORATORYFinal ResultPerforming OrganizationAddressCity/State/ZIP CodePhone Number [facility] [phone] [place] [address] from Last 3 Months or Most Recently Relevant to Health Maintenance
--- OUTSIDE RECORDS SUMMARY | 2025-06-04 14:18 | XMS_ITS | Clinical Summary ---
Author Organization [facility] Address [address] [place] [address] Care Team Providers Care Cloth Printing Back Tender Name Role Phone Rizwan Cool MD Primary Care Provider [phone] Social History Tobacco UseTypesPacks/DayYears UsedDateSmoking Tobacco: Never AssessedSex and Gender InformationValueDate RecordedSex Assigned at BirthNot on fileLegal Sex Male09/28/2022 7:25 PM EDTGender IdentityNot on fileSexual OrientationNot on file Last Filed Vital Signs Vital SignReadingTime TakenCommentsBlood Xggkcjtt684/41340 12:00 PM EDT Pulse--Temperature--Respiratory Rate--Oxygen Saturation--Inhaled Oxygen Concentration--Nszrtk560 kg (286 lb)10/30/2017 12:00 PM OELBokwai646.2 cm (5' 7 )10/30/2017 12:00 PM EDTBody Mass Index44.7910/30/2017 12:00 PM EDT Plan of Treatment Not on file Insurance Care Teams Team MemberRelationshipSpecialtyStart DateEnd Rizwan Cool MD PCP - GeneralFamily Medicine03/17/23
--- NOTE | 2025-06-04 14:53 | PM.CN ---
Consult Note: HPI Data of Consult Patient: known to practice within the last 3 years Consult date: 06/04/25 Requesting Physician: Basilia Vincent NP Primary Care Provider: VANDANA ANGELES Consult Narrative Reason for consult: f/u Narrative: Lexa Bashir a pleasant 43 year old male presents for evaluation and management of chronic diffuse pain secondary to RA. Patient last evaluated 05/08 and did not return for care as he did not find benefit to ESIs. Patient following with rheumatology q3 months in [place]. is on motrin prn and hydrocodone prn but noes drowsiness and does not like the way it makes him feel. pain today 6/10 all over and in low back without numbness tingling weakness to BLE. denies falls/injury. no recent imaging or PT as PT increases his pain. cc:: CC: Basilia Vincent NP Review of Systems ROS Musculoskeletal Reports: back pain and joint pain PFSH [facility] Medical History (Updated 05/11/23 @ 15:05 by Basilia Vincent NP) History of prediabetes ?Z87.898 - Personal history of other specified conditions (ICD-10) Leukocytosis ?D72.829 - Elevated white blood cell count, unspecified (ICD-10) Ambulatory dysfunction ?R26.2 - Difficulty in walking, not elsewhere classified (ICD-10) Intractable low back pain ?M54.59 - Other low back pain (ICD-10) Left sided sciatica ?M54.32 - Sciatica, left side (ICD-10) Psoriatic arthritis ?L40.50 - Arthropathic psoriasis, unspecified (ICD-10) Rheumatoid arthritis ?M06.9 - Rheumatoid arthritis, unspecified (ICD-10) Low back pain ?M54.50 - Low back pain, unspecified (ICD-10) Heartburn ?R12 - Heartburn (ICD-10) Kidney stone ?N20.0 - Calculus of kidney (ICD-10) Hypercholesterolemia ?E78.00 - Pure hypercholesterolemia, unspecified (ICD-10) Hypertension ?I10 - Essential (primary) hypertension (ICD-10) Surgical History History of ankle surgery ?Z98.890 - Other specified postprocedural states (ICD-10) Family History Grandfather Family history of cancer Family history of hypertension Grandmother Family history of diabetes mellitus Family history of hypertension Father Family history of hypertension Mother Family history of hypertension Social History Within the past year, how often did you have a drink containing alcohol: 2-3 times a week Within the past year, how many standard drinks containing alcohol did you have on a typical day: 5 or 6 Within the past year, how often did you have six or more drinks on one occasion: weekly Total score: 7 Score interpretation: A score of 4 or more indicates drinking is likely to affect patient's safety. Smoking status: Never smoker Non-prescribed substance use: denies use Previous occupational history: unemployed Known occupational exposures/hazards: No Highest level of school completed/degree received: high school graduate Are you now , , , , never or living with a partner: In a typical week, how many times do you talk on the telephone with family, friends, or neighbors: 3 or more times per week How often do you get together with friends or relatives: once per week How often do you attend zoroastrianism or evangelical services: never Do you belong to any clubs or organizations such as zoroastrianism groups unions, fraternal or athletic groups, or school groups: no Total score: 1 Score interpretation: A score of less than or equal to 1 indicates the most socially isolated. Little interest or pleasure in doing things: not at all Feeling down, depressed, or hopeless: not at all Feel stressed/tense/nervous/anxious/difficulty sleeping: to some extent Do you think of yourself as: straight/heterosexual Gender Identity: male Meds Home Medications and Allergies Home Medications ?Medication ?Instructions ?Recorded ?Confirmed ?Type amlodipine 10 mg tablet 10 mg PO DAILY 12/18/22 03/01/23 History atorvastatin 80 mg tablet 80 mg PO DAILY 12/18/22 03/02/23 History duloxetine 60 mg capsule,delayed 60 mg PO DAILY 12/18/22 03/01/23 History release (Cymbalta) esomeprazole magnesium 20 mg 20 mg PO DAILY 12/18/22 03/01/23 History capsule,delayed release (Nexium 24HR) ibuprofen 800 mg tablet 800 mg PO TID PRN pain 12/18/22 03/02/23 History losartan 100 mg tablet (Cozaar) 100 mg PO DAILY 12/18/22 03/02/23 History naloxone 4 mg/actuation nasal 1 spray intranasal Q2M PRN opioid 02/24/23 03/02/23 Rx spray (Narcan) overdose #2 ea cyclobenzaprine 10 mg tablet 10 mg PO BID PRN muscle spasm 03/02/23 03/02/23 History hydrocodone 5 mg-acetaminophen 325 1 tab PO TID PRN pain 03/02/23 03/02/23 History mg tablet metoprolol tartrate 25 mg tablet 25 mg PO Q12H 03/02/23 03/02/23 History phentermine 37.5 mg tablet 37.5 mg PO QDAY 03/02/23 03/02/23 History baclofen 10 mg tablet 10 mg PO Q8H #30 tabs 03/03/23 Rx hydrocodone 5 mg-acetaminophen 325 1 tab PO TID PRN pain #90 tabs 03/15/23 Rx mg tablet hydrocodone 5 mg-acetaminophen 325 1 tab PO TID PRN pain #90 tabs 05/11/23 Rx mg tablet cyclobenzaprine 10 mg tablet 10 mg PO BID #60 tabs 07/05/23 Rx hydrocodone 5 mg-acetaminophen 325 1 tab PO TID PRN pain #90 tabs 07/05/23 Rx mg tablet Allergies Allergy/AdvReac Type Severity Reaction Status Date / Time No Known Drug Allergies Allergy Verified 03/01/23 19:12 Exam Constitutional Documenting provider has reviewed patient's vital signs: yes Common normals: no apparent distress, oriented x3 and alert General appearance: cooperative HENHI Common normals: normocephalic, hearing grossly normal bilaterally and moist oral mucous membranes Head and scalp: normocephalic Eye Common normals: PERRL Pupil: PERRL Neck & C-Spine Common normals: full ROM General: normal visual inspection Chest Common normals: inspection of chest normal Respiratory Common normals: normal respiratory effort, no retractions and no use of accessory muscles Back & Pelvis Lumbar spine/lower back: ROM limited, pain with ROM and straight leg raise negative bilaterally Other: bilateral facet loading pain over l4-5 l5-s1 Extremity Common normals: normal to inspection and full ROM Left lower extremity: hip joint Other: left hip pain with internal and external rotation Neuro Common normals: oriented x3 Sensorium/orientation: alert Gait (neuro): antalgic Motor exam: strength 5/5 throughout and no movement abnormalities noted Psych Common normals: mental status grossly normal, thought process normal, cooperative, affect normal, speech normal and activity/motor behavior normal Speech: normal speech Thought process: normal thought process Results Additional Findings Additional findings: If on a controlled substance or opioids, I have checked an [place]AR[place] report on this patient and there are no aberrancies noted in the prescribing history.??If on a controlled substance or opioid a drug screen was completed and reviewed within the last year, and if there has not been a drug screen completed we ordered one today to monitor higher risk, state monitored pain medication use. As part of providing excellent, safe, comprehensive care, the following was completed at our patient's visit: 1. A medication reconciliation and review to ensure accurate knowledge of current/active medications, including asking our patients to inform us about any izkb-iux-fkthwtg medications or herbal remedies/nutritional supplements/alternative remedies. 2. A review to specifically ensure our patients have had annual screening for screening for depression, screening for tobacco use, and screening for unhealthy alcohol use. For concerning screenings had a discussion with the patient, provided patient education, and recommended follow-up with primary care provider when appropriate. If patient noted with a risk of falling, they received education on strength, gait, and balance training to prevent future risk of falling. Portions of this note may have been carried over from the previous visit and updated as appropriate. Please note this office utilizes paper charting in addition to the electronic medical record. A list of current medications, vitals, and PMH is available there as the clinical staff outside of myself do not have access to [facility] charting during the clinic day operations. As part of providing quality comprehensive care the current medications, vitals, and PMH were reviewed in the paper chart. Assessment and Plan Assessment and Plan (1) Lumbar spondylosis: (2) Rheumatoid arthritis: (3) Psoriatic arthritis: Plan patient declining tramadol. i would not recommend increasing hydrocodone or escalating to percocet with current side effects. advised pt to dc motrin and start mobic 7.5mg bid prn pain take with food. can utilize additional otc tylenol. declining lumbar MBBs in consideration of RFA. continue f/u with rheumatology. f/u 1 month
== END 2025-06-04 14:14 | disposition home or self-care (01) ==
LOC: PM 14:14
PROVIDERS: PCP Nurse Practitioner Family; Visit Provider Nurse Practitioner
DX: M47.816 Spondylosis without myelopathy or radiculopathy, lumbar region (principal); M06.9 Rheumatoid arthritis, unspecified; L40.50 Arthropathic psoriasis, unspecified
CPT/HCPCS: G0463